=== PATIENT | male | born 1940 | race Two or more races ===

== ENCOUNTER → 2024-06-11 | Outpatient (CLI) | payer MEDICARE, MEDICAID, SELFPAY ==
[2024-06-11 09:52] LABS: Basophils % (Auto) 0 % (0-2.5); Eosinophils # (Auto) 0.1 Thou/mm3 (0.0-0.5); Eosinophils % (Auto) 2 % (0-10); Hematocrit 41.3 % (41.0-53.0); Hemoglobin 13.7 g/dL (13.5-16.0); Immature Granulocytes % (Auto) 0 % (0-0); Immature Granulocytes Auto 0.02 Thou/mm3 (0.00-0.00); Lymphocytes # (Auto) 1.4 Thou/mm3 (1.0-4.8); Lymphocytes % (Auto) 24 % (10-50); Mean Corpuscular HGB Conc 33.2 g/dl (31.0-37.0); Mean Corpuscular Hemoglobin 29.3 pg (25.0-35.0); Mean Corpuscular Volume 88 fL (80-100); Monocytes # (Auto) 0.7 Thou/mm3 (0.0-0.8); Monocytes % (Auto) 11 % (0-12); Neutrophils # (Auto) 3.7 Thou/mm3 (1.8-7.7); Neutrophils % (Auto) 62 % (37-80); Nucleated Red Blood Cell % 0 /100 WBC (0); Platelet Count 215 Thou/mm3 (140-440); Red Blood Count 4.68 Miln/mm3 (4.50-5.90)
[2024-06-11 10:27] LABS: Alanine Aminotransferase 12 U/L (10-49); Albumin, Serum 4.2 gm/dL (3.4-4.8); Albumin/Globulin Ratio 1.7 (1.2-2.2); Alkaline Phosphatase 89 U/L (46-116); Anion Gap 6 (7-16); Aspartate Amino Transferase 15 U/L (0-34); BUN/Creatinine Ratio 13 Ratio (12-20); Blood Urea Nitrogen 10 mg/dL (9-23); Calcium 9.5 mg/dL (8.3-10.6); Calcium (Corrected) 9.5 mg/dL (8.5-10.1); Carbon Dioxide 28.4 mMol/L (20.0-31.0); Chloride 103 mMol/L (98-107); Creatinine (Component) 0.8 mg/dL (0.6-1.3); Globulin 2.5 gm/dL (2.3-3.5); Glucose 101 mg/dL (74-106); Osmolality,Calculated 272 (275-295); Potassium 4.2 mMol/L (3.4-5.1); Sodium 137 mMol/L (136-145); Total Protein 6.7 gm/dL (5.7-8.2); eGFR > 60 See Note
== END | disposition home or self-care (01) ==
PROVIDERS: PCP Family Medicine; Referring Provider Radiology Therapeutic Radiology; Visit Provider Radiology Therapeutic Radiology
DX: C61 Malignant neoplasm of prostate (principal); R59.0 Localized enlarged lymph nodes
CPT/HCPCS: 36415; 80053; 84153; 85025

== ENCOUNTER 2024-06-13 09:21 | Outpatient (RCR) | payer MEDICARE, MEDICAID, SELFPAY ==
--- NOTE | 2024-06-13 10:17 | CTCFLWUP_ITS ---
[facility] [address] [place], [place] [address] FOLLOW-UP NOTE Date: 06/13/2024 MR#: [id number] Name: ELSA ADAMS : 1940 Dx: C61 Malignant neoplasm of prostate Identification. History of prostate CA treated with radiation therapy 7200 cGy completed 10/02/2012. PSA noted to be rising slowly this year, most recent 06/11/2024 6.1. This is minimally changed from 6.4 on 02/06/2024, and 5.7 on 11/02/2023. Bone scan mild uptake in TL spine and knees. CT of the neck 02/19/2024 somewhat larger 2.2 cm right parotid region compared to 1.8 centimeter 023. Had previous biopsy the left parotid gland 11/30/2022 generally considered benign tumor oncocytom a. Most recent CT Abdomen pelvis 02/19/2004 showed masslike area sigmoid colon. States that he has been passing some bloody stools while wiping during bowel movements. 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 Placed on Plavix aspiri n and intact hypertensive. As I see patient today he appears comfortable, with slight weakness on the left side noted neurologic ally. Able to communicate adequately. States his bowel symptoms are similar with occasional blood-t inged stools but does not want to go out of this area for colonoscopy.. For insurance reasons he has to. Assessment #1 history of prostate CA treated with radiation September 2012. Borderline elevated PSA in the 6 range on recent tests. Patient opts for continued observation. #2. Recent acute CVA being followed by neurologist on antiplatelet and hypertensives. #3. Intermittent bleeding lower GI tract. Declines colonoscopy done out of the area which is requir ed by his insurance. Opted for continued observation as well. #4. 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 Gave patient appointment for 6 months. Can return earlier if needed for any worsening of sympto ms. Electronically signed by: Toney Woodson M.D. 06/13/2024 10:15 AM
== END 2024-06-29 23:59 | disposition home or self-care (01) ==
LOC: SCTC 09:21
PROVIDERS: PCP Family Medicine; Referring Provider Family Medicine; Visit Provider Radiology Therapeutic Radiology
DX: Z08 Encounter for follow-up examination after completed treatment for malignant neoplasm (principal); Z85.46 Personal history of malignant neoplasm of prostate; R97.21 Rising PSA following treatment for malignant neoplasm of prostate; K92.1 Melena; Z86.018 Personal history of other benign neoplasm; Z92.3 Personal history of irradiation
CPT/HCPCS: 99213; G0463

== ENCOUNTER 2024-08-16 20:42 | Inpatient (IN) | payer MEDICARE, MEDICAID, SELFPAY ==
[2024-08-16 20:43] VITALS: BMI 31.9
[2024-08-16 21:00] VITALS: PULSE 76
[2024-08-16 21:01] VITALS: BP 158/79; PULSE 83; RESP 20; TEMP 36.7; O2SAT 96
--- NOTE | 2024-08-16 21:01 | XR_ITS ---
Examination: CT brain head without contrast. 2-D sagittal coronal reconstructions Date and time of exam:August 16, 2024 2140 hrs. Indications: Stroke alert, onset focal neurologic deficit, left arm numbness beginning today CTDI: vol (mGy):55.8 DLP: (mGycm):1146 Technique: Multiple CT axial sections of the brain have been obtained, 5 mm slice thickness. Contrast has not been administered. 2-D sagittal, coronal reconstructions have been obtained Low dose protocols were performed. One or more of the following dose reduction techniques were used; automated exposure control, adjustment of the mA and/or KV according to patient size, use of iterative reconstruction technique. Findings: No significant ventricular enlargement. Intra-axial or extra-axial hemorrhage density is not seen. No mass effect or midline shift Basal cisterns are not remarkable. Fourth ventricle is midline. Cranial vault intact. Impression: Negative for acute hemorrhage, mass effect or midline shift
--- NOTE | 2024-08-16 21:01 | XR_ITS ---
Examination: CTA carotids with intravenous contrast CTA brain, head with intravenous contrast. 2-D sagittal, coronal reconstructions. 3-D reconstructions. Exam date and time: August 16, 2024 2144 hrs. Indications: Stroke alert, onset focal neurologic deficit including left arm numbness today CTDI: vol (mGy) 11.3 DLP: (mGycm) 432 Technique: Multiple CTA axial brain, head carotid images post intravenous contrast injection 75 cc, Isovue-370. 2-D sagittal, coronal reconstructions. 3-D reconstructions, 3-D post processing including vascular maximum intensity projection images. Low dose protocols were performed. One or more of the following dose reduction techniques were used; automated exposure control, adjustment of the mA and/or KV according to patient size, use of iterative reconstruction technique. Findings: No significant common carotid carotid bifurcation or internal carotid artery stenoses Dominant left vertebral artery with no critical stenoses Moderate calcification intracranial vertebral arteries Basilar artery posterior cerebral arteries fill Moderate calcification juxtasellar internal carotid arteries No cerebral large vessel arterial occlusions Impression: No significant neck arterial stenoses No cerebral large vessel arterial occlusions
--- NOTE | 2024-08-16 21:01 | PD.EDRME ---
Rapid Medical Screening Exam [facility] Arrival date/time: 08/16/24 20:42 84-year-old male with a history of CVA, hyperlipidemia, hypertension presents to the emergency room with a chief complaint of left-sided arm numbness, slurred speech, left facial numbness x 1 hour. Patient has a history of a stroke 3 months ago and is on blood thinners. I have greeted and performed a focused initial assessment of this patient. A comprehensive ED assessment and evaluation of the patient, analysis of all test results, and completion of the medical decision making process will be conducted by additional ED providers. Chief Complaint: Neuro Symptoms/Deficit Vital signs reviewed by provider: Yes
--- NOTE | 2024-08-16 21:04 | PC.NURSE ---
stroke consult Case # [id number]
--- NOTE | 2024-08-16 21:06 | PD.EDNEURO ---
Neuro Symptoms Deficit-RME/HPI General Chief Complaint: Neuro Symptoms/Deficit Stated Complaint: LEFT ARM NUMB Time Seen by Provider: 08/16/24 21:07 Arrival date/time: 08/16/24 20:42 RME / HPI RME / HPI Narrative: 08/16/24 20:42 84-year-old male with a history of CVA, hyperlipidemia, hypertension presents to the emergency room with a chief complaint of left-sided arm numbness, slurred speech, left facial numbness x 1 hour. Patient has a history of a stroke 3 months ago and is on blood thinners. I have greeted and performed a focused initial assessment of this patient. A comprehensive ED assessment and evaluation of the patient, analysis of all test results, and completion of the medical decision making process will be conducted by additional ED providers. ----- Dr. Villalobos?s Main ED Evaluation: 84yo male with pmhx CVA, HTN, HLD BIB his daughter presents to the ED for a chief complaint of neurological symptoms. Patient states he was sitting down watching TV when he started having LUE numbness, left facial droop, and slurred speech. Patient's daughter states the patient had similar symptoms 3 months ago when he had his last stroke, so she brought him in for evaluation. Denies any dizziness, lightheadedness, headache or any other associated symptoms. No known allergies. Patient is on Plavix. Related Data Home Medications ?Medication ?Instructions ?Recorded ?Confirmed carvedilol 6.25 mg tablet (Coreg) 6.25 mg PO BID ##0 12/01/10 08/17/24 amlodipine 10 mg tablet 10 mg PO QDAY 07/21/21 08/17/24 famotidine 20 mg tablet 20 mg PO BID PRN Heartburn 07/21/21 08/17/24 losartan 25 mg tablet 25 mg PO DAILY 08/17/24 08/17/24 Previous Rx's ?Medication ?Instructions ?Recorded atorvastatin 80 mg tablet 80 mg PO QPM #30 tabs 05/14/24 clopidogrel 75 mg tablet 75 mg PO QDAY 30 days #30 tabs 05/14/24 Allergies Allergy/AdvReac Type Severity Reaction Status Date / Time No Known Allergies Allergy Verified 05/12/24 05:17 Review of Systems Review of Systems Systems Reviewed: All systems reviewed, normal except as documented Narrative Review of Systems: Gen: No fever, no chills, no weight loss EYES: No discharge, no visual changes, no pain HEENT: No ear pain, no congestion, no sore throat PULM: No shortness of breath, no cough, no congestion CV: No chest pain, no dyspnea on exertion, no palpitations GI: No nausea, no vomiting, no diarrhea, no pain, no constipation : No frequency, no urgency, no dysuria Musc/skel: No joint pain, no back pain Skin: No rash. Warm and dry. Psyc: No hallucinations, no depression Heme/Lymph: No easy bleeding or bruising tendencies Neuro: No weakness, no headache, + LUE numbness, + left facial droop, + slurred speech Past Medical History Past Medical History NEUROLOGIC: Negative Neurological Disorders CARDIAC: Positive Cardiac Disorders, Hypercholesterolemia and Hypertension; Negative Congestive Heart Failure RESPIRATORY: Negative Chronic Obstructive Pulmonary Disease (COPD) or Asthma GASTROINTESTINAL: Positive Gastrointestinal Disorders, Colorectal Cancer (Pt states tumor in colon found 2 weeks ago) and Gastroesophageal Reflux Disease GENITOURINARY: Positive Prostate Cancer; Negative Genitourinary Disorders or Renal Disease REPRODUCTIVE: Positive Testicular Cancer MUSCULOSKELETAL: Positive Musculoskeletal Disorders, Arthritis and Osteoporosis ENT: Positive Cataracts ENDOCRINE: Negative Endocrine Disorders, Diabetes Mellitus Type 1 or Diabetes Mellitus Type 2 HEMATOLOGIC: Negative Blood Disorders or Sickle Cell Disease OTHER HISTORY: Positive Hospitalization, Falls, Radiation Therapy, Chicken Pox, Cancer, Colorectal Cancer (Pt states tumor in colon found 2 weeks ago), Prostate Cancer and Testicular Cancer; Negative Autoimmune Disease, Down Syndrome, Developmental Delay, Shingles, Blood Transfusions or Anesthesia Reactions Family History FAMILY HISTORY: Negative Family Cardiac Disorders Surgical History SURGICAL: Positive Abdominal Surgery; Negative Cardiac Surgery, Endocrine Surgery, Joint Replacement, Neurologic Surgery or Vasectomy Social History SMOKING STATUS: Never smoker ED Exam Narrative Physical exam: GENERAL APPEARANCE: AxOx4, generally well-appearing, no acute distress. HEENT: NC, AT. MMM. EOMI, clear conjunctiva, oropharynx clear. NECK: Supple without lymphadenopathy. No stiffness or restricted ROM. HEART: Normal rate and regular rhythm, normal S1/S1, no m/r/g LUNGS: CTAB, moving air well. No crackles or wheezes are heard. ABDOMEN: Soft, nontender, nondistended with good bowel sounds heard. BACK: No midline C/T/L spine pain or deformity, No CVAT, no obvious deformity. EXTREMITIES: Without cyanosis, clubbing or edema. MUSCULOSKELETAL: FROM of all major joints, no chest tenderness NEUROLOGICAL: Grossly nonfocal. 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 Observed to ambulate with normal gait. Skin: Warm and dry without any rash. Course Course Course Narrative: 2100: Stroke alert initiated. Quality Measures Suspected type of Stroke: TIA Last known well (date): 08/16/24 Last known well (time): 20:00 Tenecteplase given: Reason(s) TPA not given: Acute bleeding diathesis (recent GI bleeding and is being worked up as an outpatient for colon CA per teleneurology) not given stroke Orders Category Date Time Status Admit to Inpatient Status Routine Admission 08/16/24 23:15 Active Patient Condition Routine Admission 08/16/24 23:14 Ordered Aspiration precautions NOW Care 08/16/24 23:15 Active Bedside Blood Glucose NOW Care 08/16/24 21:01 Completed Support Staff NOW Care 08/16/24 21:01 Completed Continuous Pulse Oximetry NOW Care 08/16/24 21:01 Completed EKG (ED ONLY) *Do not use* NOW Care 08/16/24 21:01 Completed Insert IV NOW Care 08/16/24 21:01 Completed NIH Stroke Scale now Care 08/16/24 21:01 Active NPO NOW Care 08/16/24 21:01 Active NPO NOW Care 08/16/24 23:15 Active Neuro Check Q4H START 00 Care 08/16/24 23:15 Completed Notify provider NEEDED Care 08/16/24 23:14 Active Nurse Swallow Screen x1 Care 08/16/24 21:01 Active Seizure precautions NEEDED Care 08/16/24 23:15 Active Consult to Neurology / Tele-Neurology Routine Cons 08/16/24 21:01 Active Diet NPO (NOW) Diet 08/16/24 23:[address] angio stroke protocol Stat Exams 08/16/24 21:[address] stroke protocol Stat Exams 08/16/24 21:01 Completed EKG (ED Only) Stat Exams 08/16/24 21:01 Ordered CBC Stat Lab 08/16/24 21:07 Completed Comprehensive Metabolic Panel Stat Lab 08/16/24 21:07 Completed Magnesium Stat Lab 08/16/24 21:07 Completed Partial Thromboplastin Time Stat Lab 08/16/24 21:07 Completed Prothrombin Time with INR Stat Lab 08/16/24 21:07 Completed Troponin I Stat Lab 08/16/24 21:07 Completed Urinalysis Stat Lab 08/16/24 22:57 Completed Urine Culture Stat Lab 08/16/24 22:57 Received Albuterol/Ipratr Rt Shelly [Duoneb Rt Shelly] Med 08/16/24 23:14 Active 3 ml INH Q2HR PRN Code Status Routine Oth 08/16/24 23:14 Ordered Oxygen Delivery NOW RT 08/16/24 21:01 Active Vital Signs Vital signs: Vital Signs Pulse Rate 76 08/16/24 21:00 Pulse ox is 96% on room air, which is normal according to my interpretation. Neuro Symptoms / Deficit MDM Narrative MDM Narrative:: Scribe Attestation: 08/16/24 Aarti Pitts am scribing for and in the presence of Dr. Villalobos. Patient data External records reviewed:: [facility] previous records (Per chart review, patient was admitted here on 05/12/24 for stroke-like symptoms.) Clinical information provided by:: patient and family (patient's daughter) Social determinants that could affect healthcare access:: none Patient has the following chronic illnesses:: CVA, HTN, HLD How is presenting disease/condition affected by chronic disease/condition?: caused by Evaluation data The following diagnostics were reviewed and interpreted by me:: lab results, radiology exam(s) and EKG tracing(s) Lab and/or radiology exams considered but not ordered:: none Interpretation Summary: CBC is normal, PTT is normal, PT and INR are normal, Glucose is 148, troponin is normal, Magnesium is normal, according to my interpretation. EKG done at 2132, NSR, rate of 79, normal intervals, normal axis, no acute ST or T-wave changes, according to my interpretation. -------- [facility] Signed Patient: BRYANELSA Hanson Med. Record#: [id number] Birthdate: 1940 Age/Sex: 84 / M Location: [facility] Attending Dr: Ordering Physician: Sanjiv Moncada Date of Service: 08/16/24 Procedure(s): CT stroke protocol Accession Number(s): [id number] cc: Sanjiv Moncada; Sohail Velazquez MD~ Examination: CT brain head without contrast. 2-D sagittal coronal reconstructions Date and time of exam:August 16, 2024 2140 hrs. Indications: Stroke alert, onset focal neurologic deficit, left arm numbness beginning today CTDI: vol (mGy):55.8 DLP: (mGycm):1146 Technique: Multiple CT axial sections of the brain have been obtained, 5 mm slice thickness. Contrast has not been administered. 2-D sagittal, coronal reconstructions have been obtained Low dose protocols were performed. One or more of the following dose reduction techniques were used; automated exposure control, adjustment of the mA and/or KV according to patient size, use of iterative reconstruction technique. Findings: No significant ventricular enlargement. Intra-axial or extra-axial hemorrhage density is not seen. No mass effect or midline shift Basal cisterns are not remarkable. Fourth ventricle is midline. Cranial vault intact. Impression: Negative for acute hemorrhage, mass effect or midline shift Dictated By: Sohail Velazquez MD Signed By: <Electronically signed by Sohail Velazquez MD in OV> 08/16/242116 [facility] Signed Patient: ELSA ADAMS. Record#: [id number] Birthdate: 1940 Age/Sex: 84 / M Location: [facility] Attending Dr: Ordering Physician: Sanjiv Moncada Date of Service: 08/16/24 Procedure(s): CT angio stroke protocol Accession Number(s): [id number] cc: Sanjiv Moncada; Sohail Velazquez MD~ Examination: CTA carotids with intravenous contrast CTA brain, head with intravenous contrast. 2-D sagittal, coronal reconstructions. 3-D reconstructions. Exam date and time: August 16, 2024 2144 hrs. Indications: Stroke alert, onset focal neurologic deficit including left arm numbness today CTDI: vol (mGy) 11.3 DLP: (mGycm) 432 Technique: Multiple CTA axial brain, head carotid images post intravenous contrast injection 75 cc, Isovue-370. 2-D sagittal, coronal reconstructions. 3-D reconstructions, 3-D post processing including vascular maximum intensity projection images. Low dose protocols were performed. One or more of the following dose reduction techniques were used; automated exposure control, adjustment of the mA and/or KV according to patient size, use of iterative reconstruction technique. Findings: No significant common carotid carotid bifurcation or internal carotid artery stenoses Dominant left vertebral artery with no critical stenoses Moderate calcification intracranial vertebral arteries Basilar artery posterior cerebral arteries fill Moderate calcification juxtasellar internal carotid arteries No cerebral large vessel arterial occlusions Impression: No significant neck arterial stenoses No cerebral large vessel arterial occlusions Dictated By: Sohail Velazquez MD Signed By: <Electronically signed by Sohail Velazquez MD in OV> 08/16/24 7979 Medications / Prescriptions Medications or Prescriptions considered but not ordered:: none Medication administrations:: Medication Administration History Acetaminophen (Acetaminophen 325 Mg Tablet) 650 mg PO Q6H PRN PRN Reason: Fever >100.3 or pain Stop: 09/15/24 23:15 Hydrocodone Bitart/Acetaminophen (Hydrocodone/Apap 5/325 Tablet) 1 tab PO Q4HR PRN PRN Reason: PAIN SCALE 4-10(Mod-Sev Stop: 08/21/24 23:15 Albuterol/Ipratropium (Albuterol/Ipratropium (Duoneb) Rt Shelly 3 Ml Nebu) 3 ml INH Q2HR PRN PRN Reason: SHORTNESS OF BREATH OR WHEEZE Stop: 09/15/24 23:13 Atorvastatin Calcium (Atorvastatin Calcium 20 Mg Tablet) 80 mg PO HS RAGINI Stop: 09/16/24 20:59 Last Admin: 08/17/24 20:15 Dose: 80 mg Documented By: GILBERT Clopidogrel Bisulfate (Clopidogrel Bisulfate 75 Mg Tablet) 75 mg PO QDAY RAGINI Stop: 09/16/24 08:59 Last Admin: 08/17/24 09:55 Dose: 75 mg Documented By: JOE Famotidine (Famotidine Inj 10 Mg/Ml Vial 2 Ml) 20 mg IVP Q12HR RAGINI Stop: 09/16/24 08:59 Last Admin: 08/17/24 20:15 Dose: 20 mg Documented By: Admin: 08/17/24 09:55 Dose: 20 mg Documented By: JOE Labetalol HCl (Labetalol Inj 5 Mg/Ml Vial 20 Ml) 10 mg IVP Q10MIN PRN PRN Reason: SBP > 220 Stop: 09/15/24 23:29 Ondansetron HCl (Ondansetron Inj 2 Mg/Ml Inj 2 Ml) 4 mg IV Q6H PRN; Protocol PRN Reason: NAUSEA OR VOMITING Stop: 09/15/24 23:15 Sennosides (Senna Tablet) 1 tab PO QDAY RAGINI; Protocol Stop: 09/16/24 08:59 Last Admin: 08/17/24 09:55 Dose: 1 tab Documented By: JRR Discontinued Medications Polyethylene Glycol/Electrolytes (Na Kennedy/Nahco3/Wolf/Peg (Golytely) 4,000 Ml Btl) 4,000 ml PO X1 ONE Stop: 08/17/24 14:32 Last Admin: 08/17/24 15:34 Dose: 4,000 ml Documented By: JRR see above, if any Consultations Consultation(s) initiated? (list below): Yes Consultation #1 (Physician, Specialty, Details): Discussed case with [Dr. Willis] from [teleneurology] regarding [consultation]. Discussed patients ED course, exam findings, labs, and radiology results. States the patient is not a tPA candidate at this time due to having recent GI bleeding and being worked up as an outpatient for colon CA and recommends admitting the patient for a stroke work-up. Time: 21:52 Consultation #2 (Physician, Specialty, Details): Discussed case with [the resident physician, attending Dr. Magallon] from Hospitalist service regarding admission. Discussed patients ED course, exam findings, labs, and radiology results. The Hospitalist [agrees] to accept the patient for admission. Time: 22:11 Diagnosis Neuro Differential Diagnosis: other (CVA, atypical migraine, ICH, seizure) Most likely diagnosis given after review of the tests above:: see below Admission Indicated Admission indicated?: indicated Admission Request Was there a request for admission?: Yes Admission Attestation Admission request attestation: Discussed case with [] from Hospitalist service regarding admission. Discussed patients ED course, exam findings, labs, and radiology results. The Hospitalist [agrees,declines] to accept the patient for admission. Disposition Plan Disposition Plan: Admit Critical Care Time Critical Care Time Critical Care Time: Yes Total Critical Care Time (min.): 40 Attestation: The high probability of sudden, clinically significant deterioration in the patient?s condition required the highest level of my preparedness to intervene urgently. The services I provided to this patient were to treat and/or prevent clinically significant deterioration. Services included the following: chart data review, reviewing nursing notes and/or old charts, documentation time, risk management consultant collaboration regarding findings and treatment options, medication orders and management, direct patient care, vital sign assessments and ordering, interpreting and reviewing diagnostic studies and lab tests. Aggregate critical care time includes only time during which I was engaged in work directly related to the patient?s care, as described above, whether at bedside or elsewhere in the Emergency Department. It did not include time spent performing other reported procedures or the services of residents, students, nurses or physician assistants. Discharge Plan Plan Patient Disposition: Admit Acute Care w/in Hospital Problem List Clinical Impression: Acute CVA (cerebrovascular accident), Chronic GI bleeding
[2024-08-16 21:18] LABS: Basophils # (Auto) 0.1 Thou/mm3 (0.0-0.2); Basophils % (Auto) 1 % (0-2.5); Eosinophils # (Auto) 0.2 Thou/mm3 (0.0-0.5); Eosinophils % (Auto) 2 % (0-10); Hematocrit 40.5 % (41.0-53.0); Hemoglobin 13.6 g/dL (13.5-16.0); Immature Granulocytes % (Auto) 0 % (0-0); Immature Granulocytes Auto 0.02 Thou/mm3 (0.00-0.00); Lymphocytes # (Auto) 1.9 Thou/mm3 (1.0-4.8); Lymphocytes % (Auto) 23 % (10-50); Mean Corpuscular HGB Conc 33.6 g/dl (31.0-37.0); Mean Corpuscular Hemoglobin 29.4 pg (25.0-35.0); Mean Corpuscular Volume 88 fL (80-100); Monocytes # (Auto) 0.9 Thou/mm3 (0.0-0.8); Monocytes % (Auto) 10 % (0-12); Neutrophils # (Auto) 5.5 Thou/mm3 (1.8-7.7); Neutrophils % (Auto) 64 % (37-80); Nucleated Red Blood Cell % 0 /100 WBC (0); Platelet Count 206 Thou/mm3 (140-440); RDW Standard Deviation 42.9 fL (35.1-43.9); Red Blood Count 4.62 Miln/mm3 (4.50-5.90); White Blood Count 8.5 Thou/mm3 (3.8-10.6)
[2024-08-16 21:27] VITALS: RESP 98
[2024-08-16 21:30] VITALS: BP 144/64; PULSE 77; RESP 20; O2SAT 97
[2024-08-16 21:35] LABS: Partial Thromboplastin Time 25.6 Seconds (22.0-36.0); Prothrombin Time 11.3 Seconds (9.0-12.2)
[2024-08-16 21:39] LABS: Carbon Dioxide 26.2 mMol/L (20.0-31.0); Chloride 103 mMol/L (98-107); Potassium 3.7 mMol/L (3.4-5.1); Sodium 136 mMol/L (136-145)
[2024-08-16 21:40] LABS: Alanine Aminotransferase 9 U/L (10-49); Albumin, Serum 4.4 gm/dL (3.4-4.8); Albumin/Globulin Ratio 1.6 (1.2-2.2); Alkaline Phosphatase 103 U/L (46-116); Anion Gap 7 (7-16); Aspartate Amino Transferase 14 U/L (0-34); BUN/Creatinine Ratio 13 Ratio (12-20); Bilirubin,Total 0.6 mg/dL (0.3-1.2); Blood Urea Nitrogen 10 mg/dL (9-23); Calcium 9.3 mg/dL (8.3-10.6); Calcium (Corrected) 9.3 mg/dL (8.5-10.1); Creatinine (Component) 0.8 mg/dL (0.6-1.3); Estimated Creatinine Clearance 79.7 mL/min (>60); Globulin 2.8 gm/dL (2.3-3.5); Glucose 148 mg/dL (74-106); Osmolality,Calculated 273 (275-295); Total Protein 7.2 gm/dL (5.7-8.2); Troponin I < 0.020 ng/mL (0.0-0.045); eGFR > 60 See Note
[2024-08-16 21:41] VITALS: PULSE 76; RESP 25; RESP 97
--- NOTE | 2024-08-16 21:43 | PC.NURSE ---
Per teleneuro, pt not candidate for TNKase.
--- NOTE | 2024-08-16 22:05 | PD.TNEURO ---
Tele Neuro Consultation Consultation Date 08/16/24 Most Recent Vital Signs Last Vital Signs Temp 98.1 F 08/16/24 21:01 Pulse 76 08/16/24 21:41 Resp 25 H 08/16/24 21:41 BP 144/64 H 08/16/24 21:30 Pulse Ox 97 08/16/24 21:30 O2 Del Method Room Air 08/16/24 21:30 Laboratory-Coagulation Panel PT 11.3 Seconds (9.0-12.2) 08/16/24 21:07 INR 1.0 (0.9-1.3) 08/16/24 21:07 APTT 25.6 Seconds (22.0-36.0) 08/16/24 21:07 Consultation Narrative [facility] Tele[facility]urology Consult Services Patient Name:???Juan Manuel Eagle Date of :???1940 Identification Number:??? Date of Service:???08/16/2024 21:03:47 Diagnosis:?R20.2 - Paresthesia of skin Impression: ?84 yo M w/ PMHx of recent R parietal stroke in April 2024, who presents with L sided weakness, numbness, slurred speech, dizziness. NIHSS 5. He is not a candidate for thrombolytic due to recent GI bleeding and possible colon cancer for which he is undergoing outpatient workup. ? ?Recommend admission for further stroke rule out as below. Would continue home plavix for now given recent GI bleeding. Our recommendations are outlined below. Recommendations: ? Stroke/Telemetry Floor ? Neuro Checks ? Bedside Swallow Eval ? DVT Prophylaxis ? IV Fluids, Normal Saline ? Head of Bed 30 Degrees ? Euglycemia and Avoid Hyperthermia (PRN Acetaminophen) ? Antihypertensives PRN if Blood pressure is greater than 220/120 or there is a concern for End organ damage/contraindications for permissive HTN. If blood pressure is greater than 220/120 give labetalol PO or IV or Vasotec IV with a goal of 15% reduction in BP during the first 24 hours. ?continue plavix 75mg daily ?MRI Brain w/o contrast Sign Out: ? Discussed with Emergency Department Provider Advanced Imaging:CTA Head and Neck Completed. LVO:No Patient in not a candidate for BIN Metrics: Last Known Well: 08/16/2024 20:00:00 Dispatch Time: 08/16/2024 21:03:47 Arrival Time: 08/16/2024 20:42:00 Initial Response Time: 08/16/2024 21:11:18Symptoms: L arm numbness, dizziness, slurred speech, and facial droop. . Initial patient interaction: 08/16/2024 21:31:39 NIHSS Assessment Completed: 08/16/2024 21:43:02Patient is not a candidate for Thrombolytic. Thrombolytic Medical Decision: 08/16/2024 21:43:03Patient was not deemed candidate for Thrombolytic because of following reasons: Recent gastrointestinal or urinary tract hemorrhage (within previous 21 days) . GI malignancy . I personally Reviewed the CT Head and it Showed no acute hemorrhage Primary Provider Notified of Diagnostic Impression and Management Plan on: 08/16/2024 21:48:00 History of Present Illness:Patient is a 84 year old Male. Patient was brought by private transportation with symptoms of L arm numbness, dizziness, slurred speech, and facial droop. . Patient was LKW at 8pm and then started to experience L arm numbness, dizziness, slurred speech, and facial droop. He reports having these symptoms before in the setting of a minor stroke in April when he was found to have R parietal lobe strokes. He also reports he is being worked up for GI bleeding and a possible colon tumor, and his daughter reports this is an ongoing issue for him, not yet resolved or diagnosed. ? Past Medical History: ?Hypertension ?Stroke Other PMH:? recent GI bleeding Medications: No Anticoagulant use? Antiplatelet use:?Yes?plavix Reviewed EMR for current medications Allergies:? Reviewed Social History: Smoking: No Family History: There is no family history of premature cerebrovascular disease pertinent to this consultation ROS : 14 Points Review of Systems was performed and was negative except mentioned in HPI. Past Surgical History: There Is No Surgical History Contributory To Today?s Visit ? Examination: BP(75137),?Pulse(76), 1A: Level of Consciousness - Alert; keenly responsive?+ 0 1B: Ask Month and Age - Both Questions Right?+ 0 1C: Blink Eyes & Squeeze Hands - Performs Both Tasks?+ 0 2: Test Horizontal Extraocular Movements - Normal?+ 0 3: Test Visual Calvin - No Visual Loss?+ 0 4: Test Facial Palsy (Use Grimace if Obtunded) - Minor paralysis (flat nasolabial fold, smile asymmetry)?+ 1 5A: Test Left Arm Motor Drift - Drift, but doesn't hit bed?+ 1 5B: Test Right Arm Motor Drift - No Drift for 10 Seconds?+ 0 6A: Test Left Leg Motor Drift - No Drift for 5 Seconds?+ 0 6B: Test Right Leg Motor Drift - No Drift for 5 Seconds?+ 0 7: Test Limb Ataxia (FNF/Heel-Zayas) - Ataxia in 1 Limb?+ 1 8: Test Sensation - Mild-Moderate Loss: Less Sharp/More Dull?+ 1 9: Test Language/Aphasia - Normal; No aphasia?+ 0 10: Test Dysarthria - Mild-Moderate Dysarthria: Slurring but can be understood?+ 1 11: Test Extinction/Inattention - No abnormality?+ 0 NIHSS Score:?5 Pre-Morbid Modified [place] Scale:1 Points = No significant disability despite symptoms; able to carry out all usual duties and activities Spoke with :?Dr. Villalobos This consult was conducted in real time using interactive audio and video technology. Patient was informed of the technology being used for this visit and agreed to proceed. Patient located in hospital and provider located at home/office setting. Patient is being evaluated for possible acute neurologic impairment and high probability of imminent or life-threatening deterioration. I spent total of 35 minutes providing care to this patient, including time for face to face visit via telemedicine, review of medical records, imaging studies and discussion of findings with providers, the patient and/or family. Dr Jovon Willis [facility] For Inpatient follow-up with [facility] physician please call [facility] at . As we are not an outpatient service for any post hospital discharge needs please contact the hospital for assistance. If you have any questions for the [facility] physicians or need to reconsult for clinical or diagnostic changes please contact us via [facility] at .
[2024-08-16 23:09] LABS: Collection Type, Urine Clean Catch; Squamous Epithelial Cell,Urine 0 /hpf (0-5)
--- NOTE | 2024-08-16 23:14 | PD.RESHP ---
Documentation for date of: 08/16/24 HPI History of Present Illness Chief complaint: Left face and arm tingling History of present illness: HPI: Patient is an 84-year-old male with past medical history significant for essential hypertension, hyperlipidemia, chronic stroke, history of prostate cancer s/p radiation September 2012 in remission and sigmoid colon mass for investigation presenting today with a chief complaint of left face tingling and left arm tingling. Patient stated that around 8 PM he started to feel left facial warmth and tingling along with left arm tingling. He recently had a stroke last month and was concerned he might be having a new one so he called the ambulance. Patient denies any weakness, headache, dizziness, vomiting, visual changes, anosmia or ageusia and loss of consciousness. Since his last stroke patient says whenever he closes his eyes he feels dizzy. Upon arrival teleneurology was consulted who assessed patient as not a candidate for thrombolytic due to recent GI bleed and possible colon cancer. They recommended inpatient admission, MR stroke protocol, continue Plavix 75 Mg p.o. daily and permissive hypertension for first 24 hours. Of note patient had a recent admission from 05/12/2024 to 05/14/2024 for acute right parietal lobe infarct. Patient also had a history of prostate cancer s/p radiation September 2012 and follows up with radiation oncologist Dr. Woodson. Also for the past couple months patient has had celia NC bleeding and findings of a sigmoid mass on CT. Currently patient is awaiting outpatient GI appointment for further investigation. ED course: BP 158/79, pulse 76, RR 20, temp 98.1 F, SpO2 96% on room air. Labs significant for Hb 13.6, HCT 14.5, BUN 10, CR 0.8. Head CT negative for acute hemorrhage, mass effect or midline shift. Head/neck CTA negative for significant neck arterial stenosis and cerebral large vessel arterial occlusions. Patient will be admitted for workup and management of stroke rule out. Review of Systems Review of Systems Narrative Review of Systems: GENERAL: Denies fever/chills or diaphoresis. HEENT: Denies headaches or visual changes. Denies discharge. Neuro: As above CARDIO: Denies chest pain or palpitations. PULM: Denies SOB, couging or wheezing. GI: Denies abdominal pain, N/V/C/D. Reports having BMs. URO: Denies buring/itching/pain/urinary changes. MSK/EXT/SKIN: Denies joint/skeletal/muscle pain, issues/changes in upper or lower extremities, itchiness, or superficial pain. PSYCH: Cooperative, pleasant mood & affect. The rest of the review of systems is otherwise negative. Past Medical History Past Medical History Comments PMH COMMENT: Past medical history: ?Essential hypertension ? Hyperlipidemia ? Chronic stroke ? History of prostate cancer s/p radiation September 2012 in remission ? Sigmoid colon mass for investigation Medication list: ? Amlodipine 10 Mg p.o. daily ? Atorvastatin 80 Mg p.o. every afternoon ? Carvedilol 6.25 Mg p.o. twice daily ? Plavix 75 Mg p.o. daily ? Famotidine 20 Mg p.o. twice daily ? Losartan 25 Mg p.o. daily Past surgical history: ? Cholecystectomy 2013 ? 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 Education Level: Attended elementary school up to second grade Marital Status: . 2 daughters Tobacco use: Quit smoking 20 years ago. Previously approximately 71-ejuk-utlo history ETHO use: Quit alcohol 20 years ago. Previously drank about 4 beers per week. Illicit drug use: Denies Social History Note: Patient lives with daughter and ambulates with a walker at baseline. Family History: 2 brothers from [place] in the 70s Exam Vital Signs Temp Pulse Resp BP Pulse Ox O2 Del Method 98.1 F 76 25 H 144/64 H 97 Room Air 08/16/24 21:01 08/16/24 21:41 08/16/24 21:41 08/16/24 21:30 08/16/24 21:30 08/16/24 21:30 Narrative Exam Constitutional Alert, oriented x 3 and comfortable. Elderly male HEENT Vision grossly intact. Patent nares. Trachea midline Respiratory Chest normal on inspection and clear auscultation bilaterally Cardiovascular S1 and S2 audible, RRR. No murmurs carotid bruit. No gross JVD. Abdominal Soft and non tender to palpation in all quadrants. BS + Genitourinary No bladder tenderness, no flank pain. Normal to palpation Musculoskeletal Extremities tone within normal limits. No LE edema. Neurological CN II - XII grossly intact. Extremity motor and sensation grossly intact. Mild dysarthria, Romberg's positive, unsteady gait, NIHSS 3 [1C +1, 4+1, 10+1] Skin Warm, dry and intact. No apparent lesions. Psychiatric Patient has good affect, is cooperative Results: Labs 08/16/24 21:07 08/16/24 21:07 Labs: Short CBC 08/16/24 Range/Units 21:07 WBC 8.5 (3.8-10.6) Thou/mm3 Hgb 13.6 (13.5-16.0) g/dL Hct 40.5 L (41.0-53.0) % Plt Count 206 (140-440) Thou/mm3 BMP 08/16/24 21:07 Sodium 136 Potassium 3.7 Chloride 103 Carbon Dioxide 26.2 BUN 10 Creatinine 0.8 Glucose 148 H Calcium 9.3 Cardiac Enzymes 08/16/24 Range/Units 21:07 Troponin I < 0.020 (0.0-0.045) ng/mL Liver Function 08/16/24 Range/Units 21:07 Total Bilirubin 0.6 (0.3-1.2) mg/dL AST 14 (0-34) U/L ALT 9 L (10-49) U/L Alkaline Phosphatase 103 (46-116) U/L Albumin 4.4 (3.4-4.8) gm/dL Quality Measures Quality Measures stroke Suspected type of Stroke: TIA Last known well (date): 08/16/24 Last known well (time): 20:00 Tenecteplase given: Reason(s) Tenecteplase not given: Acute bleeding diathesis (recent GI bleeding and is being worked up as an outpatient for colon CA per teleneurology) not given Rehab services: PT evaluation ordered VTE Prophylaxis: mechanical Antithrombotic by day 2:: ordered Statin ordered: >75 y/o moderate or high intensity dose Anticoagulation ordered for A-fib or flutter (current or hx): not indicated Advance care planning discussed with:: patient Medications Home Medications and Allergies Home Medications ?Medication ?Instructions ?Recorded ?Confirmed ?Type carvedilol 6.25 mg tablet (Coreg) 6.25 mg PO BID ##0 12/01/10 08/17/24 History amlodipine 10 mg tablet 10 mg PO QDAY 12/22/21 01/18/25 History famotidine 20 mg tablet 20 mg PO BID PRN Heartburn 07/21/21 08/17/24 History losartan 25 mg tablet 25 mg PO DAILY 08/17/24 08/17/24 History Allergies Allergy/AdvReac Type Severity Reaction Status Date / Time No Known Allergies Allergy Verified 05/12/24 05:17 Assessment & Plan Plan Patient is an 84-year-old male with past medical history significant for essential hypertension, hyperlipidemia, chronic stroke, history of prostate cancer s/p radiation September 2012 in remission and sigmoid colon mass for investigation presenting today with a chief complaint of left face tingling and left arm tingling. Patient will be admitted for workup and management of stroke rule out. 1. Stroke rule out 2. History of right parietal infarct 05/12/2024 Patient presented with left facial numbness and left arm tingling. On exam patient had mild slurred speech, left facial tingling and left arm tingling. Head CT negative for acute hemorrhage, mass effect or midline shift. Head/neck CTA negative for significant neck arterial stenosis and cerebral large vessel arterial occlusions. Plan: - Patient is started on stroke protocol - Neuro checks q 4H - Head of bed elevated to 30 degrees - Swallow eval and bedside swallow screen ordered - PT/OT referrals placed - Seizure precautions in place - Allow permissive HTN. Antihypertensives if BP >220/120, with a goal of reduction in BP during the first 24 hours - Labetalol 10 Mg IV Q 10 minutes as needed for SBP >220 - PRN Acetaminophen 650mg to avoid hyperthermia - HbA1C, Lipid panel, TSH - ECHO with bubble study not ordered as patient had negative bubble study on previous admission - Brain MRI without contrast ordered - Dr Diop consulted, pending in-house Neurology recommendations 3. Essential hypertension 4. Hyperlipidemia On admission BP 158/79. Home medication losartan 25 Mg p.o. daily, Coreg 6.25 Mg p.o. twice daily and amlodipine 10 Mg p.o. daily Home medication atorvastatin 80 Mg p.o. every afternoon Plan: ? Home medication on hold for now to allow permissive hypertension for first 24 hours. ? Resumed home medication atorvastatin 80 Mg p.o. every afternoon 5. History of prostate cancer s/p radiation September 2012 in remission 6. Sigmoid colon mass for investigation 7. History of NC bleed Patient says for the past few months he has bright red blood upon wiping every few days. Patient also had an abdomen/pelvis CT last year April which showed a sigmoid mass suspicious for neoplasm. Currently he is awaiting outpatient GI follow-up for investigation. Plan: ? GI, Dr. Orozco consulted. Appreciate recommendations. Health maintenance: Disposition: MR donnelly. Permissive HTN. GI consult Diet: NPO until swallow eval passed Lines: pIVs GI Prophylaxis: Famotidine 20 mg IV BID Thrombo Prophylaxis: SCDs Code status: FULL CODE Plan of care discussed with Attending Dr. Sherita Anaya MD PGY 1 Attending Provider Attestation/Addendum Face to face evaluation was performed by me. I have personally seen and examined the patient. I discussed the assessment and plan with the entire medicine team. I reviewed available medical records, imaging studies, laboratory results. I agree with the above subjective data, objective findings, assessment and plan except as corrected by me or noted below Left arm numbness history of recent ischemic stroke Essential hypertension Hyperlipidemia Patient was not given tPA due to concerns of lower GI bleed and risk with. Teleneurology was consulted, recommendations were to continue Plavix and admit for inpatient workup for acute stroke, MRI to be ordered. Permissive hypertension, ST/PT Apparently patient also had some left side of the face numbness and slurred speech which is not present at this time.
[2024-08-16 23:16] LABS: Bilirubin,Urine Negative (Negative); Blood,Urine Negative (Negative); Clarity,Urine Clear (Clear/Hazy); Color,Urine Colorless (Lt Yel-Yel); Glucose, Urine Negative (Negative); Ketones,Urine Negative (Negative); Leukocyte Esterase,Urine Negative (Negative); Nitrite,Urine Negative (Negative); PH,Urine 6.5 (5.0-7.0); Protein,Urine Negative (Neg - Trace); RBC,Urine 1 /hpf (0-3); Specific Gravity,Urine 1.031 (1.001-1.035); Urobilinogen,Urine Negative mg/dL (0.0-1.0); WBC,Urine < 1 /hpf (0-5)
[2024-08-17] VITALS (9 sets, daily range): BP systolic 128–159; BP diastolic 65–98; PULSE 64–84; RESP 12–97; TEMP 35.9–36.7; O2SAT 94–97; BMI 30.3
--- NOTE | 2024-08-17 | XR_ITS ---
Examinations: MRI Brain without intravenous contrast. MRA brain without intravenous contrast. MRA carotids without intravenous contrast 3-D vascular reconstructions Date and time of exam: August 17, 2024 0815 hrs. Indications: Stroke alert August 16, 2024 onset left facial and arm paresthesias, acute infarct right parietal lobe on brain MRI May 13, 2024 Technique: Multiple axial and sagittal images of the brain have been obtained MRA brain carotid images without contrast obtained, including 3-D postprocessing, vascular maximum intensity projection images Findings: Sellaturcica is not enlarged. The optic chiasm and infundibular stalk are not remarkable. Prepontine and interpeduncular cisterns are not enlarged. No localized enlargement of the medulla or jimmie. Fourth ventricle and cerebellar tonsils normal in position. Subacute hemorrhage is not seen. Fourth ventricle is midline. Mass in the cerebellopontine angle region is not evident. 7th and 8th nerve complexes exhibits symmetry. Globes are symmetrical with no retro-orbital mass. Increased white matter signal mild Diffusion-weighted images demonstrate foci restricted diffusion right parietal lobe, 10 mm with signal deficit on the ADC map Mass-effect upon the ventricular system is not identified. MRA carotid images degraded by patient motion. MRA brain images no large vessel occlusions Impression: 10 mm acute infarct right parietal lobe Telephone partly
[2024-08-17 05:31] LABS: Basophils % (Auto) 1 % (0-2.5); Eosinophils # (Auto) 0.1 Thou/mm3 (0.0-0.5); Eosinophils % (Auto) 2 % (0-10); Hematocrit 37.5 % (41.0-53.0); Hemoglobin 12.6 g/dL (13.5-16.0); Immature Granulocytes % (Auto) 0 % (0-0); Immature Granulocytes Auto 0.01 Thou/mm3 (0.00-0.00); Lymphocytes # (Auto) 1.4 Thou/mm3 (1.0-4.8); Lymphocytes % (Auto) 23 % (10-50); Mean Corpuscular HGB Conc 33.6 g/dl (31.0-37.0); Mean Corpuscular Hemoglobin 29.5 pg (25.0-35.0); Mean Corpuscular Volume 88 fL (80-100); Monocytes # (Auto) 0.7 Thou/mm3 (0.0-0.8); Monocytes % (Auto) 11 % (0-12); Neutrophils # (Auto) 3.8 Thou/mm3 (1.8-7.7); Neutrophils % (Auto) 64 % (37-80); Nucleated Red Blood Cell % 0 /100 WBC (0); Platelet Count 196 Thou/mm3 (140-440); RDW Standard Deviation 43.2 fL (35.1-43.9); Red Blood Count 4.27 Miln/mm3 (4.50-5.90)
[2024-08-17 06:33] LABS: Alanine Aminotransferase 7 U/L (10-49); Albumin, Serum 3.9 gm/dL (3.4-4.8); Albumin/Globulin Ratio 1.5 (1.2-2.2); Anion Gap 8 (7-16); Aspartate Amino Transferase < 8 U/L (0-34); BUN/Creatinine Ratio 13 Ratio (12-20); Bilirubin,Total 0.5 mg/dL (0.3-1.2); Blood Urea Nitrogen 8 mg/dL (9-23); Calcium 9.1 mg/dL (8.3-10.6); Calcium (Corrected) 9.2 mg/dL (8.5-10.1); Carbon Dioxide 26.2 mMol/L (20.0-31.0); Chloride 105 mMol/L (98-107); Cholesterol 84 mg/dL (132-200); Creatinine (Component) 0.6 mg/dL (0.6-1.3); Estimated Creatinine Clearance 103.7 mL/min (>60); Globulin 2.6 gm/dL (2.3-3.5); Glucose 114 mg/dL (74-106); HDL Cholesterol 32 mg/dL (40-60); Osmolality,Calculated 276 (275-295); Phosphorous 3.1 mg/dL (2.4-5.1); Potassium 3.8 mMol/L (3.4-5.1); Sodium 139 mMol/L (136-145); Total Protein 6.5 gm/dL (5.7-8.2); Triglycerides 66 mg/dL (30-150); eGFR > 60 See Note
[2024-08-17 06:34] LABS: Alkaline Phosphatase 88 U/L (46-116); Cardiac Risk Estimate 2.6 RATIO (4.0-6.7); LDL Cholesterol,Calculated 39 mg/dL (0-130); Thyroid Stimulating Hormone 1.58 uIU/mL (0.55-4.78)
[2024-08-17 06:49] LABS: Glucose Estimated Average 117 mg/dL (80-131); Hemoglobin A1C 5.7 % Hgb (4.8-6.0)
[2024-08-17] MEDS: SENNA TABLET 1 TAB PO (09:55)
[2024-08-17] MEDS: CLOPIDOGREL BISULFATE 75 MG TABLET PO (09:55)
[2024-08-17] MEDS: FAMOTIDINE INJ 10 MG/ML VIAL 2 ML 20 MG IVP ×2 (09:55→20:15)
--- NOTE | 2024-08-17 14:34 | ESPR_ITS ---
Documentation for date of: 08/17/24 Subjective Subjective Interval history: Patient seen and examined at bedside. Patient was admitted overnight for CVA workup. Patient today feels well however continues to have left upper extremity weakness. MRI results showed and confirmed a R parietal lobe stroke. Also the patient has been complaining of bright red blood from the rectum upon defecation. And there has been a concern for a rectal mass that has not been evaluated and worked up due to insurance issues in the outpatient setting. Gastroenterology was consulted. Family at bedside and results were discussed with them. Exam Vital Signs Temp Pulse Resp BP Pulse Ox O2 Del Method 97.6 F 84 20 145/68 H 94 L Room Air 08/17/24 12:00 08/17/24 12:00 08/17/24 12:00 08/17/24 12:00 08/17/24 12:08/17/24 12:00 Narrative Exam Constitutional Alert, oriented x 3 and comfortable. Elderly male HEENT Vision grossly intact. Patent nares. Trachea midline Respiratory Chest normal on inspection and clear auscultation bilaterally Cardiovascular S1 and S2 audible, RRR. No murmurs carotid bruit. No gross JVD. Abdominal Soft and non tender to palpation in all quadrants. BS + Genitourinary No bladder tenderness, no flank pain. Normal to palpation Musculoskeletal Extremities tone within normal limits. No LE edema. Neurological CN II - XII grossly intact. Left upper extremity weakness with handgrip strength of 3 out of 5. Skin Warm, dry and intact. No apparent lesions. Psychiatric Patient has good affect, is cooperative Objective Labs 08/18/24 05:12 08/18/24 05:12 Labs: Laboratory Results - last 24 hr 08/16/24 08/16/24 08/17/24 21:07 22:57 04:35 WBC 8.5 6.0 RBC 4.62 4.27 L Hgb 13.6 12.6 L Hct 40.5 L 37.5 L MCV 88 88 MCH 29.4 29.5 MCHC 33.6 33.6 RDW Std Deviation 42.9 43.2 Plt Count 206 196 Neut % (Auto) 64 64 Lymph % (Auto) 23 23 [place] % (Auto) 10 11 Eos % (Auto) 2 2 Baso % (Auto) 1 1 Neut # (Auto) 5.5 3.8 Lymph # (Auto) 1.9 1.4 [place] # (Auto) 0.9 H 0.7 Eos # (Auto) 0.2 0.1 Baso # (Auto) 0.1 0.0 Immature Gran # (Auto) 0.02 H 0.01 H Absolute Nucleated RBC 0.00 0.00 Immature Gran % 0 0 Nucleated RBC % 0 0 PT 11.3 INR 1.0 APTT 25.6 Sodium 136 139 Potassium 3.7 3.8 Chloride 103 105 Carbon Dioxide 26.2 26.2 Anion Gap 7 8 BUN 10 8 L Creatinine 0.8 0.6 Estim Creat Clear Calc 79.7 103.7 eGFR > 60 > 60 BUN/Creatinine Ratio 13 13 Glucose [address] Glu mg/dL 117 Hemoglobin A1c 5.7 Calculated Osmolality 273 L 276 Calcium 9.3 9.1 Corrected Calcium 9.3 9.2 Phosphorus 3.1 Magnesium 2.0 2.0 Total Bilirubin 0.6 0.5 AST 14 < 8 ALT 9 L 7 L Alkaline Phosphatase 103 88 Troponin I < 0.020 Total Protein 7.2 6.5 Albumin 4.4 3.9 D Globulin 2.8 2.6 Albumin/Globulin Ratio 1.6 1.5 Triglycerides 66 Cholesterol 84 L LDL Cholesterol, Calc 39 HDL Cholesterol 32 L Cholesterol/HDL Ratio 2.6 L TSH 1.58 Ur Collection Type Clean Catch Urine Color Colorless A Urine Clarity Clear Urine pH 6.5 Ur Specific [place] 1.031 Urine Protein Negative Urine Glucose (UA) Negative Urine Ketones Negative Urine Blood Negative Urine Nitrite Negative Urine Bilirubin Negative Urine Urobilinogen (Auto) Negative Ur Leukocyte Esterase Negative Urine RBC 1 Urine WBC < 1 Ur Squamous Epith Cells 0 Urine Bacteria None Quality Measures Quality Measures stroke Suspected type of Stroke: TIA Last known well (date): 08/16/24 Last known well (time): 20:00 Tenecteplase given: Reason(s) Tenecteplase not given: Acute bleeding diathesis (recent GI bleeding and is being worked up as an outpatient for colon CA per teleneurology) not given Rehab services: PT evaluation ordered VTE Prophylaxis: not ordered Antithrombotic by day 2:: not indicated (describe) Statin ordered: >75 y/o moderate or high intensity dose Anticoagulation ordered for A-fib or flutter (current or hx): ordered and not indicated Advance care planning discussed with:: patient Assessment & Plan Assessment Current Active Medications: Generic Name Dose Route Start Last Admin Trade Name Freq PRN Reason Stop Dose Admin Acetaminophen 650 mg 08/16/24 23:16 Acetaminophen 325 Mg Tablet PO 09/15/24 23:15 Q6H PRN Fever >100.3 or pain Hydrocodone Bitart/Acetaminophen 1 tab 08/16/24 23:16 Hydrocodone/Apap 5/325 Tablet PO 08/21/24 23:15 Q4HR PRN PAIN SCALE 4-10(Mod-Sev Albuterol/Ipratropium 3 ml 08/16/24 23:14 Albuterol/Ipratropium (Duoneb) Rt Shelly 3 Ml Nebu INH 09/15/24 23:13 Q2HR PRN SHORTNESS OF BREATH OR WHEEZE Atorvastatin Calcium 80 mg 08/17/24 21:00 Atorvastatin Calcium 20 Mg Tablet PO 09/16/24 20:59 HS RAGINI Clopidogrel Bisulfate 75 mg 08/17/24 09:00 08/17/24 09:55 Clopidogrel Bisulfate 75 Mg Tablet PO 09/16/24 08:59 75 mg QDAY RAGINI Administration Famotidine 20 mg 08/17/24 09:00 08/17/24 09:55 Famotidine Inj 10 Mg/Ml Vial 2 Ml IVP 09/16/24 08:59 20 mg Q12HR RAGINI Administration Labetalol HCl 10 mg 08/16/24 23:23 Labetalol Inj 5 Mg/Ml Vial 20 Ml IVP 09/15/24 23:29 Q10MIN PRN SBP > 220 Ondansetron HCl 4 mg 08/16/24 23:16 Ondansetron Inj 2 Mg/Ml Inj 2 Ml IV 09/15/24 23:15 Q6H PRN NAUSEA OR VOMITING Protocol Sennosides 1 tab 08/17/24 09:00 08/17/24 09:55 Senna Tablet PO 09/16/24 08:59 1 tab QDAY RAGINI Administration Protocol Plan Patient is an 84-year-old male with past medical history significant for essential hypertension, hyperlipidemia, chronic stroke, history of prostate cancer s/p radiation September 2012 in remission and sigmoid colon mass for investigation presenting today with a chief complaint of left face tingling and left arm tingling. Patient will be admitted for workup and management of stroke rule out. #Acute R parietal lobe infarct #History of right parietal infarct 05/12/2024 Patient presented with left facial numbness and left arm tingling. On exam patient had mild slurred speech, left facial tingling and left arm tingling. Head CT negative for acute hemorrhage, mass effect or midline shift. Head/neck CTA negative for significant neck arterial stenosis and cerebral large vessel arterial occlusions. MRI brain 10 mm acute infarct right parietal lobe Plan: - PT/OT referrals placed - Labetalol 10 Mg IV Q 10 minutes as needed for SBP >220 - PRN Acetaminophen 650mg to avoid hyperthermia - plavix 75mg PO qd - Dr Diop consulted, pending in-house Neurology recommendations #Lower GI bleed #Sigmoid colon mass for investigation #History of MI bleed #History of prostate cancer s/p radiation September 2012 in remission Patient says for the past few months he has bright red blood upon wiping every few days. Patient also had an abdomen/pelvis CT last year April which showed a sigmoid mass suspicious for neoplasm. Currently he is awaiting outpatient GI follow-up for investigation. H&H stable Plan: ? GI, Dr. Orozco consulted. Appreciate recommendations. -golytely started for colonoscopy prep #Essential hypertension #Hyperlipidemia On admission BP 158/79. Home medication losartan 25 Mg p.o. daily, Coreg 6.25 Mg p.o. twice daily and amlodipine 10 Mg p.o. daily Home medication atorvastatin 80 Mg p.o. every afternoon Plan: ? Resumed home medication atorvastatin 80 Mg p.o. every afternoon Health maintenance: Disposition: MR donnelly. Permissive HTN. GI consult Diet: regular Lines: pIVs GI Prophylaxis: Famotidine 20 mg IV BID Thrombo Prophylaxis: SCDs Code status: FULL CODE - Patient's care was discussed with my attending physician, Dr. Richard Vogel MD Internal Medicine PGY-3 Attending Provider Attestation/Addendum I attest that I was physically present for the evaluation, physical examination, lab and imaging review of the patient with the residents. I discussed the case with the residents and agree with the findings and plans of care as documented above. Patient was admitted overnight for evaluation and management of acute stroke. MRI brain showed acute infarct in left parietal lobe. Patient is stated he feels better compared to yesterday but continues to have left upper extremity weakness. Also complained of bright red blood with stool. Hemoglobin noted to be slowly downtrending. We will obtain GI consult. Patient currently on Plavix and statin. Allowing permissive hypertension with labetalol for SBP of more than 220. Plan to resume his antihypertensives tomorrow if continues to be stable. Meliza Ramos MD
[2024-08-17] MEDS: NA SU/NAHCO3/KC/PEG (Golytely) 4,000 ML BTL 4000 ML PO (15:34)
--- NOTE | 2024-08-17 16:02 | ESCONSULT_ITS ---
HPI Data of Consult Requesting Physician: Ricardo Magallon MD Primary Care Provider: Jamir Griffin MD Consult Narrative Reason for consult: Sigmoid colon mass on CT AP 02/19/2024 History of present illness: 84 years old male I been consulted for sigmoid colon mass diagnosed on imaging study on 02/19/2024 Last oncology note is of March 2024 where of the sigmoid colon mass was recognized although the visits were for prostate carcinoma status post radiation therapy in the past Patient was supposed to have a colonoscopy Patient does have a history of GI bleed in terms of bleeding per rectum And that was never accomplished This admission is for tingling of the left side of the face and left arm CT scan of the head is negative CTA head and neck is negative MRI/MRA of the brain shows 10 mm right parietal infarct Patient does have a history of essential hypertension hyperlipidemia CVA in the past and prostate carcinoma status post radiation therapy and in remission since 2012 cc:: cc: Ricardo Magallon MD Review of Systems Review of Systems Systems Reviewed: All systems reviewed, normal except as documented Past Medical History Surgical History OTHER SURGICAL HX: As in the history of present illness Meds Home Medications and Allergies Home Medications ?Medication ?Instructions ?Recorded ?Confirmed ?Type carvedilol 6.25 mg tablet (Coreg) 6.25 mg PO BID ##0 12/01/10 08/17/24 History amlodipine 10 mg tablet 10 mg PO QDAY 07/21/21 08/17/24 History famotidine 20 mg tablet 20 mg PO BID PRN Heartburn 07/21/21 08/17/24 History losartan 25 mg tablet 25 mg PO DAILY 08/17/24 08/17/24 History Allergies Allergy/AdvReac Type Severity Reaction Status Date / Time No Known Allergies Allergy Verified 05/12/24 05:17 Exam Vital Signs Temp Pulse Resp BP Pulse Ox O2 Del Method 97.6 F 84 20 145/68 H 94 L Room Air 08/17/24 12:00 08/17/24 12:00 08/17/24 12:00 08/17/24 12:00 08/17/24 12:00 08/17/24 12:00 Constitutional Comments: Chronically ill-appearing Routine Respiratory Exam Comments: Normal to auscultation Routine Abdominal Exam Comments: Soft nontender Results Labs 08/17/24 04:35 08/17/24 04:35 Labs: Short CBC 08/16/24 08/17/24 Range/Units 21:07 04:35 WBC 8.5 6.0 (3.8-10.6) Thou/mm3 Hgb 13.6 12.6 L (13.5-16.0) g/dL Hct 40.5 L 37.5 L (41.0-53.0) % Plt Count 206 196 (140-440) Thou/mm3 BMP 08/16/24 08/17/24 21:07 04:35 Sodium 136 139 Potassium 3.7 3.8 Chloride 103 105 Carbon Dioxide 26.2 26.2 BUN 10 8 L Creatinine 0.8 0.6 Glucose 148 H 114 H Calcium 9.3 9.1 Cardiac Enzymes 08/16/24 Range/Units 21:07 Troponin I < 0.020 (0.0-0.045) ng/mL Liver Function 08/16/24 08/17/24 Range/Units 21:07 04:35 Total Bilirubin 0.6 0.5 (0.3-1.2) mg/dL AST 14 < 8 (0-34) U/L ALT 9 L 7 L (10-49) U/L Alkaline Phosphatase 103 88 (46-116) U/L Albumin 4.4 3.9 D (3.4-4.8) gm/dL Urine 08/16/24 Range/Units 22:57 Urine Color Colorless A (Lt Yel-Yel) Urine Clarity Clear (Clear/Hazy) Urine pH 6.5 (5.0-7.0) Ur Specific [place] 1.031 (1.001-1.035) Urine Protein Negative (Neg - Trace) Urine Glucose (UA) Negative (Negative) Assessment and Plan Additional Assessment & Plan Additional Plan: # Sigmoid colon mass Case discussed with internal medicine team Clear liquid diet GoLytely prep Colonoscopy tentatively scheduled for tomorrow morning if the patient is clear CEA level Other medical problems include # Right parietal infarct 10 mm # Prostate carcinoma 2013 s/p radiation therapy # Hyperlipidemia # Essential hypertension Thank you very much for the opportunity to participate in the care of this patient
[2024-08-17] MEDS: ATORVASTATIN CALCIUM 20 MG TABLET 80 MG PO (20:15)
[2024-08-18] VITALS (10 sets, daily range): BP systolic 137–152; BP diastolic 65–83; PULSE 58–79; RESP 14–96; TEMP 36.3–36.9; O2SAT 95–96; BMI 33.1
[2024-08-18 05:45] LABS: Basophils % (Auto) 1 % (0-2.5); Eosinophils # (Auto) 0.2 Thou/mm3 (0.0-0.5); Eosinophils % (Auto) 3 % (0-10); Hematocrit 35.3 % (41.0-53.0); Hemoglobin 12.1 g/dL (13.5-16.0); Immature Granulocytes % (Auto) 0 % (0-0); Immature Granulocytes Auto 0.02 Thou/mm3 (0.00-0.00); Lymphocytes # (Auto) 1.7 Thou/mm3 (1.0-4.8); Lymphocytes % (Auto) 26 % (10-50); Mean Corpuscular HGB Conc 34.3 g/dl (31.0-37.0); Mean Corpuscular Volume 88 fL (80-100); Monocytes # (Auto) 0.7 Thou/mm3 (0.0-0.8); Monocytes % (Auto) 11 % (0-12); Neutrophils # (Auto) 3.9 Thou/mm3 (1.8-7.7); Neutrophils % (Auto) 59 % (37-80); Nucleated Red Blood Cell % 0 /100 WBC (0); Platelet Count 185 Thou/mm3 (140-440); RDW Standard Deviation 43.8 fL (35.1-43.9); Red Blood Count 4.03 Miln/mm3 (4.50-5.90); White Blood Count 6.5 Thou/mm3 (3.8-10.6)
[2024-08-18 06:22] LABS: Alanine Aminotransferase 9 U/L (10-49); Albumin, Serum 3.7 gm/dL (3.4-4.8); Albumin/Globulin Ratio 1.5 (1.2-2.2); Alkaline Phosphatase 82 U/L (46-116); Anion Gap 7 (7-16); Aspartate Amino Transferase 10 U/L (0-34); BUN/Creatinine Ratio 11 Ratio (12-20); Bilirubin,Total 0.6 mg/dL (0.3-1.2); Blood Urea Nitrogen 9 mg/dL (9-23); Calcium 9.1 mg/dL (8.3-10.6); Calcium (Corrected) 9.3 mg/dL (8.5-10.1); Carbon Dioxide 29.9 mMol/L (20.0-31.0); Chloride 104 mMol/L (98-107); Creatinine (Component) 0.8 mg/dL (0.6-1.3); Estimated Creatinine Clearance 81.2 mL/min (>60); Globulin 2.4 gm/dL (2.3-3.5); Glucose 91 mg/dL (74-106); Osmolality,Calculated 279 (275-295); Potassium 3.8 mMol/L (3.4-5.1); Sodium 141 mMol/L (136-145); Total Protein 6.1 gm/dL (5.7-8.2); eGFR > 60 See Note
[2024-08-18 08:16] LABS: Phosphorous 3.5 mg/dL (2.4-5.1)
[2024-08-18] MEDS: POTASSIUM CHLORIDE 20 mEq TABCR PO (08:23)
[2024-08-18] MEDS: LOSARTAN POTASSIUM 25 MG TABLET PO (08:23)
[2024-08-18] MEDS: SENNA TABLET 1 TAB PO (08:23)
[2024-08-18] MEDS: CLOPIDOGREL BISULFATE 75 MG TABLET PO (08:23)
[2024-08-18] MEDS: FAMOTIDINE INJ 10 MG/ML VIAL 2 ML 20 MG IVP ×2 (08:26→20:16)
--- NOTE | 2024-08-18 10:56 | PC.SS ---
This is 84-year-old, , single female who presented to the ED due to suffering from left arm numbness. Patient appeared alert and oriented to self, place and situation. Patient reported that he resides with his daughter, Danyell at home. Patient reported that he is independent with most ADLs, and uses a walker. Patient assigned his daughter, Danyell as his emergency contact. Patient's PCP is [facility]. When medically clear, patient would like to return home with home health for PT. Discharge plan: home with home health.
--- NOTE | 2024-08-18 11:56 | ESPR_ITS ---
Documentation for date of: 08/18/24 Subjective Subjective Interval history: Hemoglobin hematocrit 12.1 and 35.3 Patient was scheduled for a colonoscopy today but she is not clear Additional GoLytely 4 L Clear liquid diet to continue Colonoscopy rescheduled for tomorrow Exam Vital Signs Temp Pulse Resp BP Pulse Ox O2 Del Method 97.7 F 62 21 H 142/82 H 96 Room Air 08/18/24 08:00 08/18/24 08:23 08/18/24 08:00 08/18/24 08:23 08/18/24 08:00 08/18/24 08:00 Routine Respiratory Exam Comments: Normal to auscultation Routine Abdominal Exam Comments: Soft nontender Objective Labs 08/18/24 05:12 08/18/24 05:12 Labs: Laboratory Results - last 24 hr 08/18/24 05:12 WBC 6.5 RBC 4.03 L Hgb 12.1 L Hct 35.3 L MCV 88 MCH 30.0 MCHC 34.3 RDW Std Deviation 43.8 Plt Count 185 Neut % (Auto) 59 Lymph % (Auto) 26 [place] % (Auto) 11 Eos % (Auto) 3 Baso % (Auto) 1 Neut # (Auto) 3.9 Lymph # (Auto) 1.7 [place] # (Auto) 0.7 Eos # (Auto) 0.2 Baso # (Auto) 0.0 Immature Gran # (Auto) 0.02 H Absolute Nucleated RBC 0.00 Immature Gran % 0 Nucleated RBC % 0 Sodium 141 Potassium 3.8 Chloride 104 Carbon Dioxide 29.9 Anion Gap 7 BUN 9 Creatinine 0.8 Estim Creat Clear Calc 81.2 eGFR > 60 BUN/Creatinine Ratio 11 L Glucose 91 Calculated Osmolality 279 Calcium 9.1 Corrected Calcium 9.3 Phosphorus 3.5 Magnesium 2.0 Total Bilirubin 0.6 AST 10 ALT 9 L Alkaline Phosphatase 82 Total Protein 6.1 Albumin 3.7 Globulin 2.4 Albumin/Globulin Ratio 1.5 Impressions Impression: # Sigmoid colon mass Additional GoLytely Clear liquid diet Colonoscopy rescheduled for tomorrow Assessment & Plan A&P Narrative # Sigmoid colon mass Case discussed with internal medicine team Clear liquid diet GoLytely prep Colonoscopy tentatively scheduled for tomorrow morning if the patient is clear CEA level Other medical problems include # 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
--- NOTE | 2024-08-18 12:49 | ESPR_ITS ---
<Statement entered by Travon Millan MD - 08/18/24 16:17> Patient was seen and examined at the bedside this morning. Patient is currently awaiting on colonoscopy as she is not clear yet on GoLytely prep for GI bleed workup. Patient was admitted for stroke workup and was found to have confirmed Rt parietal lobe stroke on MRI brain which is possibly the third stroke. Will continue with aspirin Plavix and statin therapy. Awaiting on PT recommendations. Hemoglobin was stable. Urine cultures are pending. All labs and orders were reviewed. I saw and examined the patient, and I agree with current management stated by Dr Steve MD,PGY1. Plan of care was discussed with the attending physician and resident physician. Disclaimer: Despite multiple revisions, due to the dictation software being used, the document bellow may not be free of grammatical errors including phonetic/typographic errors. However, this does not deter from our commitment to providing health care in the patient's best interest in mind. Dr. Pawan MD, PGY 2 Documentation for date of: 08/18/24 Subjective Subjective Interval history: No overnight events. Patient examined at bedside. Improved motor function in the upper extremities, no drift noted. No lower extremity motor deficits noted. Patient is scheduled for colonoscopy with Dr. Orozco, but still not clear second GoLytely added. This morning celia blood noted in stool, FOBT ordered. FOBT positive. Patient is scheduled for colonoscopy probably tomorrow. Patient updated on plan and agreeable. 10 lbs weight loss noted over the last 2 months. Left facial droop noted on physical exam, which is new on this admission and not present with other CVAs. NIHSS score 2 Exam Vital Signs Temp Pulse Resp BP Pulse Ox O2 Del Method 97.6 F 73 22 H 139/68 H 96 Room Air 08/18/24 12:00 08/18/24 12:00 08/18/24 12:00 08/18/24 12:00 08/18/24 12:08/18/24 12:00 Narrative Exam General Appearance: Alert & Oriented X3, well-nourished male who is lying in bed in no acute distress HEENT: Skull symmetrical and atraumatic. Conjunctivae pink and moist. Pupils equal, round, reactive to light and accommodation (PERRL). External ear without lesion or discharge. Straight, nares patient, mucosa pink, no discharge. No thyroid nodule appreciated. No cervical lymphadenopathy. Cardio: Normal Rate and Rhythm with S1 and S2 heart sounds. Possible holoystolic murmur noted. . No bruits on carotid auscultation. No peripheral edema or cyanosis. Lungs: Symmetric with good expansion. Chest and back non-tender. Breath sounds vesicular without crackles, wheezing or rhonchi Abdomen: mild tenderness, Non-distended, Normal Reactive Bowel Sounds, hyperresonant on right lower and upper quadrant Neuro: Alert, cooperative, oriented to person, place, and time. Speech clear. CN grossly intact. Upper motor strength 4/5 and Lower motor strength 5/5. Sensation intact. Left facial drop noted near nasol-labial folds. Objective Labs 08/18/24 05:12 08/18/24 05:12 Labs: Laboratory Results - last 24 hr 08/18/24 05:12 WBC 6.5 RBC 4.03 L Hgb 12.1 L Hct 35.3 L MCV 88 MCH 30.0 MCHC 34.3 RDW Std Deviation 43.8 Plt Count 185 Neut % (Auto) 59 Lymph % (Auto) 26 [place] % (Auto) 11 Eos % (Auto) 3 Baso % (Auto) 1 Neut # (Auto) 3.9 Lymph # (Auto) 1.7 [place] # (Auto) 0.7 Eos # (Auto) 0.2 Baso # (Auto) 0.0 Immature Gran # (Auto) 0.02 H Absolute Nucleated RBC 0.00 Immature Gran % 0 Nucleated RBC % 0 Sodium 141 Potassium 3.8 Chloride 104 Carbon Dioxide 29.9 Anion Gap 7 BUN 9 Creatinine 0.8 Estim Creat Clear Calc 81.2 eGFR > 60 BUN/Creatinine Ratio 11 L Glucose 91 Calculated Osmolality 279 Calcium 9.1 Corrected Calcium 9.3 Phosphorus 3.5 Magnesium 2.0 Total Bilirubin 0.6 AST 10 ALT 9 L Alkaline Phosphatase 82 Total Protein 6.1 Albumin 3.7 Globulin 2.4 Albumin/Globulin Ratio 1.5 Quality Measures Quality Measures stroke Suspected type of Stroke: TIA Last known well (date): 08/16/24 Last known well (time): 20:00 Tenecteplase given: Reason(s) Tenecteplase not given: Acute bleeding diathesis (recent GI bleeding and is being worked up as an outpatient for colon CA per teleneurology) not given Rehab services: PT evaluation ordered VTE Prophylaxis: pharmaceutical Antithrombotic by day 2:: not indicated (describe) Statin ordered: <75 y/o high intensity dose Anticoagulation ordered for A-fib or flutter (current or hx): not indicated Advance care planning discussed with:: patient Assessment & Plan Assessment Current Active Medications: Generic Name Dose Route Start Last Admin Trade Name Freq PRN Reason Stop Dose Admin Acetaminophen 650 mg 08/16/24 23:16 Acetaminophen 325 Mg Tablet PO 09/15/24 23:15 Q6H PRN Fever >100.3 or pain Hydrocodone Bitart/Acetaminophen 1 tab 08/16/24 23:16 Hydrocodone/Apap 5/325 Tablet PO 08/21/24 23:15 Q4HR PRN PAIN SCALE 4-10(Mod-Sev Albuterol/Ipratropium 3 ml 08/16/24 23:14 Albuterol/Ipratropium (Duoneb) Rt Shelly 3 Ml Nebu INH 09/15/24 23:13 Q2HR PRN SHORTNESS OF BREATH OR WHEEZE Atorvastatin Calcium 40 mg 08/18/24 21:00 Atorvastatin Calcium 20 Mg Tablet PO 09/17/24 20:59 HS RAGINI Clopidogrel Bisulfate 75 mg 08/17/24 09:00 08/18/24 08:23 Clopidogrel Bisulfate 75 Mg Tablet PO 09/16/24 08:59 75 mg QDAY RAGINI Administration Famotidine 20 mg 08/17/24 09:00 08/18/24 08:26 Famotidine Inj 10 Mg/Ml Vial 2 Ml IVP 09/16/24 08:59 20 mg Q12HR RAGINI Administration Labetalol HCl 10 mg 08/16/24 23:23 Labetalol Inj 5 Mg/Ml Vial 20 Ml IVP 09/15/24 23:29 Q10MIN PRN SBP > 220 Losartan Potassium 25 mg 08/18/24 09:00 08/18/24 08:23 Losartan Potassium 25 Mg Tablet PO 09/17/24 08:59 25 mg QDAY RAGINI Administration Ondansetron HCl 4 mg 08/16/24 23:16 Ondansetron Inj 2 Mg/Ml Inj 2 Ml IV 09/15/24 23:15 Q6H PRN NAUSEA OR VOMITING Protocol Sennosides 1 tab 08/17/24 09:00 08/18/24 08:23 Senna Tablet PO 09/16/24 08:59 1 tab QDAY RAGINI Administration Protocol Plan Patient is an 84-year-old male with past medical history significant for essential hypertension, hyperlipidemia, chronic stroke, history of prostate cancer s/p radiation September 2012 in remission and sigmoid colon mass for investigation presenting today with a chief complaint of left face tingling and left arm tingling. Patient will be admitted for workup and management of stroke rule out. #Lower GI bleed #Sigmoid colon mass for investigation #History of NE bleed #History of prostate cancer s/p radiation September 2012 in remission Patient says for the past few months he has bright red blood upon wiping every few days. Patient also had an abdomen/pelvis CT last year April which showed a sigmoid mass suspicious for neoplasm. Currently he is awaiting outpatient GI follow-up for investigation. H&H stable Plan: ? GI, Dr. Orozco consulted. Appreciate recommendations. -golytely started for colonoscopy prep #Acute R parietal lobe infarct #History of right parietal infarct 05/12/2024 Patient presented with left facial numbness and left arm tingling. On exam patient had mild slurred speech, left facial tingling and left arm tingling. Today, improved as compared to admission NIHSS score of 2. Previous echo on file showed negative PFO and ASD (05/12/2024). This is patient's third stroke Head CT negative for acute hemorrhage, mass effect or midline shift. Head/neck CTA negative for significant neck arterial stenosis and cerebral large vessel arterial occlusions. MRI brain 10 mm acute infarct right parietal lobe Plan: - PT/OT referrals placed - PRN Acetaminophen 650mg to avoid hyperthermia - plavix 75mg PO qd - Labetalol 10 Mg IV Q 10 minutes as needed for SBP >220, restarted home medication, out of permissive HTN window - Dr Diop consulted, pending in-house Neurology recommendations #Essential hypertension #Hyperlipidemia On admission BP 158/79. Home medication losartan 25 Mg p.o. daily, Coreg 6.25 Mg p.o. twice daily and amlodipine 10 Mg p.o. daily Home medication atorvastatin 80 Mg p.o. every afternoon Plan: ? Resumed home medication atorvastatin 40 Mg p.o. every afternoon -Resumed Losartan 25 mg QDay -Resumed amlodipine 10 mg HS -Consider resuming Coreg 6.25 mg PO tomorrow -out of window for permissive for permissive HTN Health maintenance: Disposition: GI consult and colonoscopy Diet: regular Lines: pIVs GI Prophylaxis: Famotidine 20 mg IV BID Thrombo Prophylaxis: SCDs Code status: FULL CODE - The patient's plan was discussed with attending Dr. Ramos and senior residents Dr. Pawan Wilson MD PGY1 Internal Medicine Attending Provider Attestation/Addendum I attest that I was physically present for the evaluation, physical examination, lab and imaging review of the patient with the residents. I discussed the case with the residents and agree with the findings and plans of care as documented above. At bedside today, patient appears comfortable. He states that his weakness have improved significantly compared to yesterday. Neurology following. Saturating well on room air, tolerating diet. Patient has been taking his GoLytely, but not clear yet. Continues to have bright red blood on the stool. We will continue with GoLytely, colonoscopy scheduled for tomorrow with GI. Hemoglobin slowly downtrending but stable currently at 12.1. Meliza Ramos MD
--- NOTE | 2024-08-18 12:57 | PC.NURSE ---
Dr. Orozco notified of BM still cloudy and bloody, ordered another golytely.
[2024-08-18] MEDS: NA SU/NAHCO3/KC/PEG (Golytely) 4,000 ML BTL 4000 ML PO (13:00)
[2024-08-18] MEDS: ATORVASTATIN CALCIUM 20 MG TABLET 40 MG PO (20:15)
[2024-08-18] MEDS: amLODIPine BESYLATE 5 MG TABLET 10 MG PO (20:15)
--- NOTE | 2024-08-18 22:13 | PC.NURSE ---
REPORT GIVEN TO ERYN CARDOSO TO ASSUME CARE
--- NOTE | 2024-08-18 23:33 | VVPN_ITS ---
Telemedicine visit statement This visit was conducted with the use of interactive audio and video telecommunications system that permits real time communication between the patient and the provider. Patient's verbal consent for virtual visit was obtained on 08/18/24 at 2333. Documentation for date of: 08/18/24 Subjective Subjective Interval history: Patient is in telemetry. His left facial droop and left UE weakness are improving, able to ambulate without any assistance. No new symptoms reported. Tolerating oral diet well. Slept well overnight. Virtual exam Vital Signs Temp Pulse Resp BP Pulse Ox O2 Del Method 98.4 F 65 19 143/65 H 96 Room Air 08/18/24 20:00 08/18/24 20:15 08/18/24 20:00 08/18/24 20:15 08/18/24 20:00 08/18/24 20:00 Objective Labs 08/18/24 05:12 08/18/24 05:12 Labs: Laboratory Results - last 24 hr 08/18/24 05:12 WBC 6.5 RBC 4.03 L Hgb 12.1 L Hct 35.3 L MCV 88 MCH 30.0 MCHC 34.3 RDW Std Deviation 43.8 Plt Count 185 Neut % (Auto) 59 Lymph % (Auto) 26 [place] % (Auto) 11 Eos % (Auto) 3 Baso % (Auto) 1 Neut # (Auto) 3.9 Lymph # (Auto) 1.7 [place] # (Auto) 0.7 Eos # (Auto) 0.2 Baso # (Auto) 0.0 Immature Gran # (Auto) 0.02 H Absolute Nucleated RBC 0.00 Immature Gran % 0 Nucleated RBC % 0 Sodium 141 Potassium 3.8 Chloride 104 Carbon Dioxide 29.9 Anion Gap 7 BUN 9 Creatinine 0.8 Estim Creat Clear Calc 81.2 eGFR > 60 BUN/Creatinine Ratio 11 L Glucose 91 Calculated Osmolality 279 Calcium 9.1 Corrected Calcium 9.3 Phosphorus 3.5 Magnesium 2.0 Total Bilirubin 0.6 AST 10 ALT 9 L Alkaline Phosphatase 82 Total Protein 6.1 Albumin 3.7 Globulin 2.4 Albumin/Globulin Ratio 1.5 Assessment & Plan Problem List (1) Acute CVA (cerebrovascular accident): Status: Acute Assessment and plan: stable with focal left hemiparesis affecting face and UE . Continue with aspirin, Plavix and statin. FU with echocardiogram (2) Essential (primary) hypertension: Status: Acute Assessment and plan: Needs better control with lifestyle changes in addition to losartan, carvedilol and amlodipine (3) Hyperlipidemia: Status: Acute Assessment and plan: Continue with statin
--- NOTE | 2024-08-18 23:34 | VVPN_ITS ---
Telemedicine visit statement This visit was conducted with the use of interactive audio and video telecommunications system that permits real time communication between the patient and the provider. Patient's verbal consent for virtual visit was obtained on 08/17/24 Documentation for date of: 08/17/24 Subjective Subjective Interval history: Patient is in telemetry. His left facial droop and left UE weakness are improving, able to ambulate without any assistance. No new symptoms reported. Tolerating oral diet well. Slept well overnight. Virtual exam Vital Signs Temp Pulse Resp BP Pulse Ox O2 Del Method 98.4 F 65 19 143/65 H 96 Room Air 08/18/24 20:00 08/18/24 20:15 08/18/24 20:00 08/18/24 20:15 08/18/24 20:00 08/18/24 20:00 Objective Labs 08/18/24 05:12 08/18/24 05:12 Labs: Laboratory Results - last 24 hr 08/18/24 05:12 WBC 6.5 RBC 4.03 L Hgb 12.1 L Hct 35.3 L MCV 88 MCH 30.0 MCHC 34.3 RDW Std Deviation 43.8 Plt Count 185 Neut % (Auto) 59 Lymph % (Auto) 26 [place] % (Auto) 11 Eos % (Auto) 3 Baso % (Auto) 1 Neut # (Auto) 3.9 Lymph # (Auto) 1.7 [place] # (Auto) 0.7 Eos # (Auto) 0.2 Baso # (Auto) 0.0 Immature Gran # (Auto) 0.02 H Absolute Nucleated RBC 0.00 Immature Gran % 0 Nucleated RBC % 0 Sodium 141 Potassium 3.8 Chloride 104 Carbon Dioxide 29.9 Anion Gap 7 BUN 9 Creatinine 0.8 Estim Creat Clear Calc 81.2 eGFR > 60 BUN/Creatinine Ratio 11 L Glucose 91 Calculated Osmolality 279 Calcium 9.1 Corrected Calcium 9.3 Phosphorus 3.5 Magnesium 2.0 Total Bilirubin 0.6 AST 10 ALT 9 L Alkaline Phosphatase 82 Total Protein 6.1 Albumin 3.7 Globulin 2.4 Albumin/Globulin Ratio 1.5 Assessment & Plan Problem List (1) Acute CVA (cerebrovascular accident): Status: Acute Assessment and plan: stable with focal left hemiparesis affecting face and UE . Continue with aspirin, Plavix and statin. FU with echocardiogram (2) Essential (primary) hypertension: Status: Acute Assessment and plan: Needs better control with lifestyle changes in addition to losartan, carvedilol and amlodipine (3) Hyperlipidemia: Status: Acute Assessment and plan: Continue with statin
[2024-08-19] VITALS (23 sets, daily range): BP systolic 104–146; BP diastolic 47–68; PULSE 56–105; RESP 11–96; TEMP 36.2–36.8; O2SAT 94–100; BMI 32.1
[2024-08-19 03:11] LABS: Carcinoembryonic Antigen 1.7 ng/mL (0.0-5.0)
[2024-08-19 05:14] LABS: Basophils % (Auto) 1 % (0-2.5); Eosinophils # (Auto) 0.2 Thou/mm3 (0.0-0.5); Eosinophils % (Auto) 3 % (0-10); Hematocrit 35.4 % (41.0-53.0); Hemoglobin 11.6 g/dL (13.5-16.0); Immature Granulocytes % (Auto) 0 % (0-0); Immature Granulocytes Auto 0.01 Thou/mm3 (0.00-0.00); Lymphocytes # (Auto) 1.7 Thou/mm3 (1.0-4.8); Lymphocytes % (Auto) 30 % (10-50); Mean Corpuscular HGB Conc 32.8 g/dl (31.0-37.0); Mean Corpuscular Hemoglobin 29.3 pg (25.0-35.0); Mean Corpuscular Volume 89 fL (80-100); Monocytes # (Auto) 0.6 Thou/mm3 (0.0-0.8); Monocytes % (Auto) 11 % (0-12); Neutrophils % (Auto) 54 % (37-80); Nucleated Red Blood Cell % 0 /100 WBC (0); Platelet Count 171 Thou/mm3 (140-440); RDW Standard Deviation 44.7 fL (35.1-43.9); Red Blood Count 3.96 Miln/mm3 (4.50-5.90); White Blood Count 5.4 Thou/mm3 (3.8-10.6)
[2024-08-19 05:49] LABS: Alanine Aminotransferase 9 U/L (10-49); Albumin, Serum 3.5 gm/dL (3.4-4.8); Albumin/Globulin Ratio 1.5 (1.2-2.2); Alkaline Phosphatase 78 U/L (46-116); Anion Gap 9 (7-16); Aspartate Amino Transferase 12 U/L (0-34); BUN/Creatinine Ratio 10 Ratio (12-20); Bilirubin,Total 0.6 mg/dL (0.3-1.2); Blood Urea Nitrogen 7 mg/dL (9-23); Calcium 8.9 mg/dL (8.3-10.6); Calcium (Corrected) 9.3 mg/dL (8.5-10.1); Carbon Dioxide 28.3 mMol/L (20.0-31.0); Chloride 105 mMol/L (98-107); Creatinine (Component) 0.7 mg/dL (0.6-1.3); Estimated Creatinine Clearance 92.8 mL/min (>60); Globulin 2.4 gm/dL (2.3-3.5); Glucose 77 mg/dL (74-106); Osmolality,Calculated 280 (275-295); Phosphorous 3.5 mg/dL (2.4-5.1); Sodium 142 mMol/L (136-145); Total Protein 5.9 gm/dL (5.7-8.2); eGFR > 60 See Note
[2024-08-19] MEDS: SENNA TABLET 1 TAB PO (08:19)
[2024-08-19] MEDS: FAMOTIDINE INJ 10 MG/ML VIAL 2 ML 20 MG IVP ×2 (08:19→20:08)
[2024-08-19] MEDS: LOSARTAN POTASSIUM 25 MG TABLET 50 MG PO (08:19)
[2024-08-19] MEDS: CLOPIDOGREL BISULFATE 75 MG TABLET PO (08:19)
--- NOTE | 2024-08-19 10:29 | ESPR_ITS ---
<Statement entered by Travon Millan MD - 08/19/24 13:54> Patient was seen and examined at the bedside this morning. Patient reported that he has been drinking GoLytely prep and is clear now he will be getting colonoscopy today. Patient's losartan was increased to 50 mg and amlodipine was discontinued due to bradycardic episode. PT evaluation was pending. Patient will be continued on aspirin Plavix and statin therapy for stroke. Neurology recommendations are pending. Will likely start the patient Coreg and decrease the dose of losartan tomorrow if blood pressure is controlled with it as it is patient's home medications. Echo from previous 1 showed EF 55 to 60%. Patient does not remember who prescribed him Coreg however we will continue with it tomorrow morning. All labs and orders were reviewed. I saw and examined the patient, and I agree with current management stated by Dr Steve MD,PGY1. Plan of care was discussed with the attending physician and resident physician. Disclaimer: Despite multiple revisions, due to the dictation software being used, the document bellow may not be free of grammatical errors including phonetic/typographic errors. However, this does not deter from our commitment to providing health care in the patient's best interest in mind. Dr. Yana MD, PGY 2 Documentation for date of: 08/19/24 Subjective Subjective Interval history: No overnight events reported for patient. Patient is pending colonoscopy. PT followed up with patient-no additional PT needed at this time. May return home upon DC Patient has improved motor strength on left upper extremity. Improved facial drop on left side. FOBT positive. Continue Aspirin and Plavix given history of strokes and new stroke reported on MRI with this admission. Exam Vital Signs Temp Pulse Resp BP Pulse Ox O2 Del Method 97.9 F 69 22 H 142/64 H 95 Room Air 08/19/24 08:00 08/19/24 08:19 08/19/24 08:00 08/19/24 08:19 08/19/24 08:00 08/19/24 08:00 Narrative Exam General Appearance: Alert & Oriented X3, well-nourished male who is lying in bed in no acute distress HEENT: Skull symmetrical and atraumatic. Conjunctivae pink and moist. Pupils equal, round, reactive to light and accommodation (PERRL). External ear without lesion or discharge. Straight, nares patient, mucosa pink, no discharge. No thyroid nodule appreciated. No cervical lymphadenopathy. Cardio: Normal Rate and Rhythm with S1 and S2 heart sounds. Possible holoystolic murmur noted. . No bruits on carotid auscultation. No peripheral edema or cyanosis. Lungs: Symmetric with good expansion. Chest and back non-tender. Breath sounds vesicular without crackles, wheezing or rhonchi Abdomen: mild tenderness, Non-distended, Normal Reactive Bowel Sounds, hyperresonant on right lower and upper quadrant Neuro: Alert, cooperative, oriented to person, place, and time. Speech clear. CN grossly intact. Upper motor strength 4/5 and Lower motor strength 5/5. Sensation intact. Left facial drop noted near nasol-labial, improved. Objective Labs 08/19/24 04:03 08/19/24 04:03 Labs: Laboratory Results - last 24 hr 08/17/24 08/19/24 04:35 04:03 WBC 5.4 RBC 3.96 L Hgb 11.6 L Hct 35.4 L MCV 89 MCH 29.3 MCHC 32.8 RDW Std Deviation 44.7 H Plt Count 171 Neut % (Auto) 54 Lymph % (Auto) 30 [place] % (Auto) 11 Eos % (Auto) 3 Baso % (Auto) 1 Neut # (Auto) 3.0 Lymph # (Auto) 1.7 [place] # (Auto) 0.6 Eos # (Auto) 0.2 Baso # (Auto) 0.0 Immature Gran # (Auto) 0.01 H Absolute Nucleated RBC 0.00 Immature Gran % 0 Nucleated RBC % 0 Sodium 142 Potassium 4.0 Chloride 105 Carbon Dioxide 28.3 Anion Gap 9 BUN 7 L Creatinine 0.7 Estim Creat Clear Calc 92.8 eGFR > 60 BUN/Creatinine Ratio 10 L Glucose 77 Calculated Osmolality 280 Calcium 8.9 Corrected Calcium 9.3 Phosphorus 3.5 Magnesium 2.0 Total Bilirubin 0.6 AST 12 ALT 9 L Alkaline Phosphatase 78 Total Protein 5.9 Albumin 3.5 Globulin 2.4 Albumin/Globulin Ratio 1.5 Carcinoembryonic Ag 1.7 Quality Measures Quality Measures stroke Suspected type of Stroke: TIA Last known well (date): 08/16/24 Last known well (time): 20:00 Tenecteplase given: Reason(s) Tenecteplase not given: Acute bleeding diathesis (recent GI bleeding and is being worked up as an outpatient for colon CA per teleneurology) not given Rehab services: PT evaluation ordered VTE Prophylaxis: pharmaceutical Antithrombotic by day 2:: not indicated (describe) Statin ordered: <75 y/o high intensity dose Anticoagulation ordered for A-fib or flutter (current or hx): ordered Advance care planning discussed with:: patient Assessment & Plan Assessment Current Active Medications: Generic Name Dose Route Start Last Admin Trade Name Freq PRN Reason Stop Dose Admin Acetaminophen 650 mg 08/19/24 07:52 Acetaminophen 325 Mg Tablet PO 09/15/24 23:15 Q6H PRN Fever >100.3 or pain 1-3 Hydrocodone Bitart/Acetaminophen 1 tab 08/16/24 23:16 Hydrocodone/Apap 5/325 Tablet PO 08/21/24 23:15 Q4HR PRN PAIN SCALE 4-10(Mod-Sev Albuterol/Ipratropium 3 ml 08/16/24 23:14 Albuterol/Ipratropium (Duoneb) Rt Shelly 3 Ml Nebu INH 09/15/24 23:13 Q2HR PRN SHORTNESS OF BREATH OR WHEEZE Aspirin 81 mg 08/19/24 10:00 Aspirin Ec 81 Mg Tabec PO 09/18/24 09:59 QDAY RAGINI Atorvastatin Calcium 40 mg 08/18/24 21:00 08/18/24 20:15 Atorvastatin Calcium 20 Mg Tablet PO 09/17/24 20:59 40 mg HS RAGINI Administration Clopidogrel Bisulfate 75 mg 08/17/24 09:00 08/19/24 08:19 Clopidogrel Bisulfate 75 Mg Tablet PO 09/16/24 08:59 75 mg QDAY RAGINI Administration Famotidine 20 mg 08/17/24 09:00 08/19/24 08:19 Famotidine Inj 10 Mg/Ml Vial 2 Ml IVP 09/16/24 08:59 20 mg Q12HR RAGINI Administration Labetalol HCl 10 mg 08/16/24 23:23 Labetalol Inj 5 Mg/Ml Vial 20 Ml IVP 09/15/24 23:29 Q10MIN PRN SBP > 220 Losartan Potassium 50 mg 08/19/24 09:00 08/19/24 08:19 Losartan Potassium 25 Mg Tablet PO 09/18/24 08:59 50 mg QDAY RAGINI Administration Ondansetron HCl 4 mg 08/16/24 23:16 Ondansetron Inj 2 Mg/Ml Inj 2 Ml IV 09/15/24 23:15 Q6H PRN NAUSEA OR VOMITING Protocol Sennosides 1 tab 08/17/24 09:00 08/19/24 08:19 Senna Tablet PO 09/16/24 08:59 1 tab QDAY RAGINI Administration Protocol Plan Patient is an 84-year-old male with past medical history significant for essential hypertension, hyperlipidemia, chronic stroke, history of prostate cancer s/p radiation September 2012 in remission and sigmoid colon mass for investigation presenting today with a chief complaint of left face tingling and left arm tingling. Patient will be admitted for workup and management of stroke rule out. #Lower GI bleed #Sigmoid colon mass for investigation #History of NC bleed #History of prostate cancer s/p radiation September 2012 in remission Patient says for the past few months he has bright red blood upon wiping every few days. Patient also had an abdomen/pelvis CT last year April which showed a sigmoid mass suspicious for neoplasm. Currently he is awaiting outpatient GI follow-up for investigation. H&H stable Plan: ? GI, Dr. Orozco consulted. Appreciate recommendations. -golytely started for colonoscopy prep-->colonoscopy tonight. #Acute R parietal lobe infarct #History of right parietal infarct 05/12/2024 Patient presented with left facial numbness and left arm tingling. On exam patient had mild slurred speech, left facial tingling and left arm tingling. Today, improved as compared to admission NIHSS score of 2. Previous echo on file showed negative PFO and ASD (05/12/2024). This is patient's third stroke Head CT negative for acute hemorrhage, mass effect or midline shift. Head/neck CTA negative for significant neck arterial stenosis and cerebral large vessel arterial occlusions. MRI brain 10 mm acute infarct right parietal lobe Plan: - PT/OT referrals placed - PRN Acetaminophen 650mg to avoid hyperthermia - Plavix 75mg PO qd and Aspirin 81 mg Qday - Labetalol 10 Mg IV Q 10 minutes as needed for SBP >220, restarted home medication, out of permissive HTN window - Dr Diop consulted, pending in-house Neurology recommendations #Essential hypertension #Hyperlipidemia On admission BP 158/79. Home medication losartan 25 Mg p.o. daily, Coreg 6.25 Mg p.o. twice daily and amlodipine 10 Mg p.o. daily Home medication atorvastatin 80 Mg p.o. every afternoon Plan: ? Resumed home medication atorvastatin 40 Mg p.o. every afternoon -Resumed Losartan 25 mg QDay -Consider resuming Coreg 6.25 mg PO on 08/20/2024 -Holding amlodipine 10 mg HS -out of window for permissive for permissive HTN Health maintenance: Disposition: GI consult and colonoscopy Diet: clear liquids Lines: pIVs GI Prophylaxis: Famotidine 20 mg IV BID Thrombo Prophylaxis: SCDs Code status: FULL CODE - The patient's plan was discussed with attending Dr. Ramos and senior residents Dr. Yana Wilson MD PGY1 Internal Medicine Attending Provider Attestation/Addendum I attest that I was physically present for the evaluation, physical examination, lab and imaging review of the patient with the residents. I discussed the case with the residents and agree with the findings and plans of care as documented above. At bedside today, patient states he is feeling better. Continues to have improving strength on his left upper limb. Alert and oriented x4. Saturating well on room air. We will continue with PT. Continues to be on Clopidogrel and statin, added aspirin as per neurology recommendation. Patient awaiting colonoscopy with GI today. Meliza Ramos MD
--- NOTE | 2024-08-19 14:59 | PC.PT ---
PT eval only. Patient is xI with bed mobility, transfers, and ambulation with no DME. Patient is at his PLOF. Patient is safe to ambulate to the bathroom and in the sullivan with no DME. RN notified.
--- NOTE | 2024-08-19 18:10 | SUR.PHASEI ---
pt awake and alert, breathing unlabored on 2l nc. v/s stable. report called to Sarah [facility]ERNA. pt will be transferred to room at this time.
[2024-08-19] MEDS: ASPIRIN EC 81 MG TABEC PO (18:32)
[2024-08-19] MEDS: ATORVASTATIN CALCIUM 20 MG TABLET 40 MG PO (20:08)
--- NOTE | 2024-08-19 22:29 | ESPR_ITS ---
Documentation for date of: 08/19/24 Subjective Subjective Interval history: Patient was seen in [facility] today, continues to improve in his left facial and UE weakness. No headache or dz reported, tolerating oral diet well. Exam - Neurology Vital Signs Temp Pulse Resp BP Pulse Ox O2 Del Method O2 Flow Rate 97.5 F 66 23 H 120/64 95 Room Air 2 08/19/24 20:00 08/19/24 20:00 08/19/24 20:00 08/19/24 20:00 08/19/24 20:00 08/19/24 20:00 08/19/24 17:50 Narrative Exam GENERAL APPEARANCE: Well hydrated, well-nourished in no acute distress. HEENT: Normocephalic, atraumatic, extraocular movements intact. Pupils: Equal reacting to light and accommodation NECK: Supple, no JVD or bruits. CARDIOVASULAR: Heart: S1, S2 heard, regular without S3-S4 or murmur no rubs or gallops. LUNGS/CHEST: Clear to auscultation bilaterally. No rails, rhonchi, or wheezing. Normal inspection. ABDOMEN: Soft, nontender, with normal bowel sounds. No pulsatile masses. No rebound, rigidity, or guarding. Normal inspection and palpation. EXTREMITIES: Normal inspection and palpation. No edema, clubbing or cyanosis. SKIN: Warm and dry without rashes. Normal inspection. MUSCULOSKELETAL: No cervical, thoracic, lumbar or midline bony tenderness. Normal inspection. NEURO: Alert, awake and oriented x3. Cranial nerves: II through XII grossly intact with exception of improving left facial weakness of upper motor neuron type. Speech and language: Normal with no dysarthria or dysphasia. Motor system: Tone and bulk: Normal: Strength: 5 out of 5 in all 4 extremities; mild left pronator drift noted. Deep tendon reflexes: 2+ bilaterally symmetrical. Plantar reflex: Downgoing bilaterally. Sensory system: Intact to all modalities of sensation bilaterally. Coordination: Intact to [id number] and [id number] test bilaterally. No ataxia, but mild dysmetria and dysdiadochokinesia noted in the left upper extremity. No intention tremors noted. Gait: Normal. Toe, heel, tandem walk all are normal. Romberg: Negative. No signs of meningeal irritation noted. PSYCHIATRIC: Normal mood and affect. Objective Labs 08/20/24 05:52 08/20/24 05:52 Labs: Laboratory Results - last 24 hr 08/17/24 08/19/24 04:35 04:03 WBC 5.4 RBC 3.96 L Hgb 11.6 L Hct 35.4 L MCV 89 MCH 29.3 MCHC 32.8 RDW Std Deviation 44.7 H Plt Count 171 Neut % (Auto) 54 Lymph % (Auto) 30 [place] % (Auto) 11 Eos % (Auto) 3 Baso % (Auto) 1 Neut # (Auto) 3.0 Lymph # (Auto) 1.7 [place] # (Auto) 0.6 Eos # (Auto) 0.2 Baso # (Auto) 0.0 Immature Gran # (Auto) 0.01 H Absolute Nucleated RBC 0.00 Immature Gran % 0 Nucleated RBC % 0 Sodium 142 Potassium 4.0 Chloride 105 Carbon Dioxide 28.3 Anion Gap 9 BUN 7 L Creatinine 0.7 Estim Creat Clear Calc 92.8 eGFR > 60 BUN/Creatinine Ratio 10 L Glucose 77 Calculated Osmolality 280 Calcium 8.9 Corrected Calcium 9.3 Phosphorus 3.5 Magnesium 2.0 Total Bilirubin 0.6 AST 12 ALT 9 L Alkaline Phosphatase 78 Total Protein 5.9 Albumin 3.5 Globulin 2.4 Albumin/Globulin Ratio 1.5 Carcinoembryonic Ag 1.7 Assessment & Plan Assessment and plan (1) Acute CVA (cerebrovascular accident): Status: Acute Assessment and plan: mri Brain showed acute infarct in the right parietal area. improving in deficit: left facial and UE weakness Continue with BP control and statin hold off on antiplatelet agents because of GI bleeding (2) Essential (primary) hypertension: Status: Acute Assessment and plan: continue Losartan and Carvedilol (3) Hyperlipidemia: Status: Acute Assessment and plan: continue with statin (4) Malignant neoplasm of sigmoid colon: Status: Acute Assessment and plan: Follow-up with colonoscopy findings
[2024-08-20] VITALS (14 sets, daily range): BP systolic 116–156; BP diastolic 63–80; PULSE 55–92; RESP 13–97; TEMP 36.2–37.2; O2SAT 94–98; BMI 31.7; BMI 31.6
[2024-08-20 06:08] LABS: Basophils % (Auto) 0 % (0-2.5); Eosinophils # (Auto) 0.1 Thou/mm3 (0.0-0.5); Eosinophils % (Auto) 2 % (0-10); Hematocrit 36.7 % (41.0-53.0); Immature Granulocytes % (Auto) 0 % (0-0); Immature Granulocytes Auto 0.02 Thou/mm3 (0.00-0.00); Lymphocytes # (Auto) 1.4 Thou/mm3 (1.0-4.8); Lymphocytes % (Auto) 22 % (10-50); Mean Corpuscular HGB Conc 32.7 g/dl (31.0-37.0); Mean Corpuscular Hemoglobin 28.8 pg (25.0-35.0); Mean Corpuscular Volume 88 fL (80-100); Monocytes # (Auto) 0.5 Thou/mm3 (0.0-0.8); Monocytes % (Auto) 9 % (0-12); Neutrophils # (Auto) 4.2 Thou/mm3 (1.8-7.7); Neutrophils % (Auto) 67 % (37-80); Nucleated Red Blood Cell % 0 /100 WBC (0); Platelet Count 166 Thou/mm3 (140-440); RDW Standard Deviation 43.5 fL (35.1-43.9); Red Blood Count 4.16 Miln/mm3 (4.50-5.90); White Blood Count 6.2 Thou/mm3 (3.8-10.6)
[2024-08-20 07:05] LABS: Alanine Aminotransferase 9 U/L (10-49); Albumin, Serum 3.7 gm/dL (3.4-4.8); Albumin/Globulin Ratio 1.5 (1.2-2.2); Alkaline Phosphatase 80 U/L (46-116); Anion Gap 7 (7-16); Aspartate Amino Transferase 12 U/L (0-34); BUN/Creatinine Ratio 6 Ratio (12-20); Bilirubin,Total 0.9 mg/dL (0.3-1.2); Blood Urea Nitrogen 5 mg/dL (9-23); Calcium 9.1 mg/dL (8.3-10.6); Calcium (Corrected) 9.3 mg/dL (8.5-10.1); Chloride 103 mMol/L (98-107); Creatinine (Component) 0.8 mg/dL (0.6-1.3); Estimated Creatinine Clearance 79.5 mL/min (>60); Globulin 2.4 gm/dL (2.3-3.5); Glucose 86 mg/dL (74-106); Magnesium 1.8 mg/dL (1.6-2.6); Osmolality,Calculated 273 (275-295); Phosphorous 3.5 mg/dL (2.4-5.1); Potassium 4.1 mMol/L (3.4-5.1); Sodium 139 mMol/L (136-145); Total Protein 6.1 gm/dL (5.7-8.2); eGFR > 60 See Note
[2024-08-20] MEDS: FAMOTIDINE INJ 10 MG/ML VIAL 2 ML 20 MG IVP ×2 (08:30→23:56)
[2024-08-20] MEDS: Magnesium Sulfate 2 GM Ivpb 2 GM/50 ML BAG IV (08:30)
[2024-08-20] MEDS: carVEDILOL 3.125 MG TABLET 6.25 MG PO ×2 (08:48→18:16)
[2024-08-20] MEDS: LOSARTAN POTASSIUM 25 MG TABLET PO (08:49)
--- NOTE | 2024-08-20 08:52 | PD.SURCONS ---
HPI Consult details Consult date: 08/20/24 Reason for consultation narrative: Near obstructing sigmoid tumor History of present illness: 84-year-old male with history of hypertension had CVA with left-sided weakness on April. He was started on aspirin and Plavix. He was readmitted few days ago with numbness and tingling of left upper extremity. He has had a CT scan of abdomen and pelvis in January 2024 that revealed masslike area in the sigmoid, colonoscopy was recommended and was not done. During this admission patient underwent colonoscopy by Dr. Orozco that revealed near obstructing mass of sigmoid colon highly suspicious for malignancy. Patient also has history of prostate cancer s/p radiation and hormonal manipulation therapy. Review of Systems Constitutional Constitutional: Denies chills and Denies fever(s) Cardiovascular Cardiovascular: Denies chest pain Respiratory Respiratory: Denies cough Gastrointestinal Gastrointestinal: Denies abdominal pain, Denies hematochezia, Denies nausea and Denies vomiting Genitourinary Genitourinary: Denies difficulty urinating Hematologic/Lymphatic Hematologic/Lymphatic: Denies easy bleeding and Reports easy bruising Past Medical History Surgical History OTHER SURGICAL HX: Cholecystectomy Social History SMOKING STATUS: Former smoker SUBSTANCE USE: does not use ALCOHOL: Former Meds Home Medications and Allergies Home Medications ?Medication ?Instructions ?Recorded ?Confirmed ?Type carvedilol 6.25 mg tablet (Coreg) 6.25 mg PO BID ##0 12/01/10 08/17/24 History famotidine 20 mg tablet 20 mg PO BID PRN Heartburn 07/21/21 08/17/24 History losartan 25 mg tablet 25 mg PO DAILY 08/17/24 08/17/24 History Allergies Allergy/AdvReac Type Severity Reaction Status Date / Time No Known Allergies Allergy Verified 05/12/24 05:17 Exam Vital Signs Temp Pulse Resp BP Pulse Ox O2 Del Method O2 Flow Rate 99.0 F 87 15 127/68 97 Room Air 2 08/20/24 04:00 08/20/24 08:49 08/20/24 07:14 08/20/24 08:49 08/20/24 07:14 08/20/24 04:00 08/19/24 17:50 Constitutional Constitutional: no acute distress Routine Abdominal Exam Comments: Abdomen is soft and mildly distended. No tenderness or evidence of peritonitis at this time Results Results: Laboratory Laboratory results: results reviewed Assessment & Plan Problem List (1) Malignant neoplasm of sigmoid colon: Status: Acute Plan Patient most likely has malignant neoplasm of sigmoid colon that is near obstructing. He will require sigmoid colectomy. However, he had a recent stroke and he is on Plavix. His Plavix needs to be held for 7 days prior surgical intervention. I had a lengthy discussion with the patient and his family and explained to them that because of his recent stroke he is at high risk for another stroke blood clot, heart attack or . They wish to discuss among themselves prior to making her final decision. I wish to extend my most sincere thanks to Dr. Orozco for consulting me, allowing me to evaluate participate in care of this patient.
[2024-08-20 08:55] LABS: Carcinoembryonic Antigen 1.4 ng/mL (0.0-5.0)
--- NOTE | 2024-08-20 09:17 | PC.SS ---
SS follow up: was informed by PT that the patient was requesting resources to get meals delivered to his home residence. CLINIC OFFICE COORDINATOR met with patient at bed side and provided meal resources and explained to the patient how services work. Patient verbalized understanding, informed he would have his daughter assist him when discharged home.
--- NOTE | 2024-08-20 10:19 | PC.SS ---
SS update: patient is pending colonoscopy.
[2024-08-20] MEDS: ENOXAPARIN SOD INJ 40 MG/0.4 ML SYRINGE SC (11:43)
--- NOTE | 2024-08-20 13:16 | ESPR_ITS ---
<Statement entered by Travon Millan MD - 08/20/24 14:51> Patient was seen and examined at the bedside this morning. Colonoscopy results showed mass in the colon which is ulcerated and large in size. GI specialist consulted surgeon, Dr Jade for further evaluation and he plans to do surgery tomorrow as patient was taking aspirin and Plavix. Recommended to hold on aspirin Plavix and stopped Lovenox Likely perform surgery tomorrow morning. Patient is n.p.o. after midnight. Daughter was updated regarding the plan. Otherwise patient's labs were unremarkable and blood pressure remained stable. CEA and PSA levels were ordered. All labs and orders were reviewed. I saw and examined the patient, and I agree with current management stated by Dr Steve MD,PGY1. Plan of care was discussed with the attending physician and resident physician. Disclaimer: Despite multiple revisions, due to the dictation software being used, the document bellow may not be free of grammatical errors including phonetic/typographic errors. However, this does not deter from our commitment to providing health care in the patient's best interest in mind. Dr. Yana MD, PGY 2 Documentation for date of: 08/20/24 Subjective Subjective Interval history: No overnight events reported for patient. Colonoscopy obtained night, ulcerated partially obstructing large mass found in the sigmoid colon and positive for hemorrhoids. Patinet deneid abdominal pain. Patient stated still able to pass gas and having bowel movemetns. Patient was understanding of results and would like his daughter present in all discussions if surgery will proceed. Updated patient on results. Plan for surgery on Monday, patient will remained in the hospital. Holding eliquis and asprin. Levenox 40 mg sc qday. Improved motor function of left upper extremity. NIHSS score 2. Per PT-->Benefit with HH OT. Exam Vital Signs Temp Pulse Resp BP Pulse Ox O2 Del Method O2 Flow Rate 98.7 F 77 20 127/68 96 Room Air 2 08/20/24 08:00 08/20/24 12:00 08/20/24 08:00 08/20/24 08:49 08/20/24 08:00 08/20/24 08:00 08/19/24 17:50 Narrative Exam General Appearance: Alert & Oriented X3, well-nourished male who is lying in bed in no acute distress HEENT: Skull symmetrical and atraumatic. Conjunctivae pink and moist. Pupils equal, round, reactive to light and accommodation (PERRL). External ear without lesion or discharge. Straight, nares patient, mucosa pink, no discharge. No thyroid nodule appreciated. No cervical lymphadenopathy. Cardio: Normal Rate and Rhythm with S1 and S2 heart sounds. Possible holoystolic murmur noted. . No bruits on carotid auscultation. No peripheral edema or cyanosis. Lungs: Symmetric with good expansion. Chest and back non-tender. Breath sounds vesicular without crackles, wheezing or rhonchi Abdomen: mild tenderness, Non-distended, Normal Reactive Bowel Sounds, hyperresonant on right lower and upper quadrant Neuro: Alert, cooperative, oriented to person, place, and time. Speech clear. CN grossly intact. Upper motor strength 4/5 and Lower motor strength 5/5. Sensation intact. Left facial drop noted near nasol-labial, improved. Objective Labs 08/21/24 05:05 08/21/24 05:05 Labs: Laboratory Results - last 24 hr 08/20/24 05:52 WBC 6.2 RBC 4.16 L Hgb 12.0 L Hct 36.7 L MCV 88 MCH 28.8 MCHC 32.7 RDW Std Deviation 43.5 Plt Count 166 Neut % (Auto) 67 Lymph % (Auto) 22 [place] % (Auto) 9 Eos % (Auto) 2 Baso % (Auto) 0 Neut # (Auto) 4.2 Lymph # (Auto) 1.4 [place] # (Auto) 0.5 Eos # (Auto) 0.1 Baso # (Auto) 0.0 Immature Gran # (Auto) 0.02 H Absolute Nucleated RBC 0.00 Immature Gran % 0 Nucleated RBC % 0 Sodium 139 Potassium 4.1 Chloride 103 Carbon Dioxide 29.0 Anion Gap 7 BUN 5 L Creatinine 0.8 Estim Creat Clear Calc 79.5 eGFR > 60 BUN/Creatinine Ratio 6 L Glucose 86 Calculated Osmolality 273 L Calcium 9.1 Corrected Calcium 9.3 Phosphorus 3.5 Magnesium 1.8 Total Bilirubin 0.9 AST 12 ALT 9 L Alkaline Phosphatase 80 Total Protein 6.1 Albumin 3.7 Globulin 2.4 Albumin/Globulin Ratio 1.5 Carcinoembryonic Ag 1.4 Quality Measures Quality Measures stroke Suspected type of Stroke: TIA Last known well (date): 08/16/24 Last known well (time): 20:00 Tenecteplase given: Reason(s) Tenecteplase not given: Acute bleeding diathesis (recent GI bleeding and is being worked up as an outpatient for colon CA per teleneurology) not given Rehab services: PT evaluation ordered VTE Prophylaxis: pharmaceutical Antithrombotic by day 2:: not indicated (describe) Statin ordered: <75 y/o high intensity dose Anticoagulation ordered for A-fib or flutter (current or hx): ordered Advance care planning discussed with:: patient Assessment & Plan Assessment Current Active Medications: Generic Name Dose Route Start Last Admin Trade Name Freq PRN Reason Stop Dose Admin Acetaminophen 650 mg 08/19/24 07:52 Acetaminophen 325 Mg Tablet PO 09/15/24 23:15 Q6H PRN Fever >100.3 or pain 1-3 Hydrocodone Bitart/Acetaminophen 1 tab 08/16/24 23:16 Hydrocodone/Apap 5/325 Tablet PO 08/21/24 23:15 Q4HR PRN PAIN SCALE 4-10(Mod-Sev Albuterol/Ipratropium 3 ml 08/16/24 23:14 Albuterol/Ipratropium (Duoneb) Rt Shelly 3 Ml Nebu INH 09/15/24 23:13 Q2HR PRN SHORTNESS OF BREATH OR WHEEZE Aspirin 81 mg 08/19/24 10:00 08/20/24 10:46 Aspirin Ec 81 Mg Tabec PO 09/18/24 09:59 Not Given QDAY RAGINI Atorvastatin Calcium 40 mg 08/18/24 21:00 08/19/24 20:08 Atorvastatin Calcium 20 Mg Tablet PO 09/17/24 20:59 40 mg HS RAGINI Administration Carvedilol 6.25 mg 08/20/24 08:00 08/20/24 08:48 Carvedilol 3.125 Mg Tablet PO 09/19/24 07:59 6.25 mg BIDWM RAGINI Administration Clopidogrel Bisulfate 75 mg 08/21/24 09:00 Clopidogrel Bisulfate 75 Mg Tablet PO 09/20/24 08:59 QDAY RAGINI Enoxaparin Sodium 40 mg 08/20/24 11:45 08/20/24 11:43 Enoxaparin Sod Inj 40 Mg/0.4 Ml Syringe SC 09/03/24 11:44 40 mg QDAY RAGINI Administration Famotidine 20 mg 08/17/24 09:00 08/20/24 08:30 Famotidine Inj 10 Mg/Ml Vial 2 Ml IVP 09/16/24 08:59 20 mg Q12HR RAGINI Administration Labetalol HCl 10 mg 08/16/24 23:23 Labetalol Inj 5 Mg/Ml Vial 20 Ml IVP 09/15/24 23:29 Q10MIN PRN SBP > 220 Losartan Potassium 25 mg 08/20/24 09:00 08/20/24 08:49 Losartan Potassium 25 Mg Tablet PO 09/19/24 08:59 25 mg QDAY RAGINI Administration Ondansetron HCl 4 mg 08/16/24 23:16 Ondansetron Inj 2 Mg/Ml Inj 2 Ml IV 09/15/24 23:15 Q6H PRN NAUSEA OR VOMITING Protocol Sennosides 1 tab 08/17/24 09:00 08/20/24 10:46 Senna Tablet PO 09/16/24 08:59 Not Given QDAY RAGINI Protocol Plan Patient is an 84-year-old male with past medical history significant for essential hypertension, hyperlipidemia, chronic stroke, history of prostate cancer s/p radiation September 2012 in remission and sigmoid colon mass for investigation presenting today with a chief complaint of left face tingling and left arm tingling. Patient will be admitted for workup and management of stroke rule out. History of prostate cancer. #Lower GI bleed, stable #Sigmoid colon mass for investigation s/p biopsy #History of SD bleed #History of prostate cancer s/p radiation September 2012 in remission Patient says for the past few months he has bright red blood upon wiping every few days. Patient also had an abdomen/pelvis CT last year April which showed a sigmoid mass suspicious for neoplasm and colonoscopy on 08/19/2024 showed an partially obstructing mass. F/U with PSA in AM. Plan: -Plan for surgery for Tuesday, August 27, 2024-->remain hospitalized. -HOLDING aspirin and plavix -PSA AM ?GI, Dr. Orozco consulted. Appreciate recommendations. -general surgery consulted, appreciate recommendations, Dr. Jade. #Acute R parietal lobe infarct #History of right parietal infarct 05/12/2024 Patient presented with left facial numbness and left arm tingling. On exam patient had mild slurred speech, left facial tingling and left arm tingling. Today, improved as compared to admission NIHSS score of 2. Previous echo on file showed negative PFO and ASD (05/12/2024). This is patient's third stroke Head CT negative for acute hemorrhage, mass effect or midline shift. Head/neck CTA negative for significant neck arterial stenosis and cerebral large vessel arterial occlusions. MRI brain 10 mm acute infarct right parietal lobe Plan: - Plavix 75mg PO qd and Aspirin 81 mg Qday-HOLDING tumor resection in colon - PT/OT referrals placed--> HH, pending major surgey now - PRN Acetaminophen 650mg to avoid hyperthermia - Labetalol 10 Mg IV Q 10 minutes as needed for SBP >220, restarted home medication, out of permissive HTN window home meds resumed - Dr Diop consulted, pending in-house Neurology recommendations #Essential hypertension #Hyperlipidemia On admission BP 158/79. Home medication losartan 25 Mg p.o. daily, Coreg 6.25 Mg p.o. twice daily and amlodipine 10 Mg p.o. daily Home medication atorvastatin 80 Mg p.o. every afternoon Plan: ? Resumed home medication atorvastatin 40 Mg p.o. every afternoon -Resumed Losartan 25 mg QDay -Resume Coreg 6.25 mg PO -Holding amlodipine 10 mg HS -out of window for permissive for permissive HTN Health maintenance: Disposition: Patient will remained hospitalized for tumor resection at colon site for partially obstructing tumor on 08/27/2024 Diet: clear liquids, advanced diet as tolerated. Lines: pIVs, tele box GI Prophylaxis: Famotidine 20 mg IV BID Thrombo Prophylaxis: SCDs/Levonox Code status: FULL CODE - The patient's plan was discussed with attending Dr. Ramos and senior residents Dr. Yana Wilson MD PGY1 Internal Medicine Attending Provider Attestation/Addendum I attest that I was physically present for the evaluation, physical examination, lab and imaging review of the patient with the residents. I discussed the case with the residents and agree with the findings and plans of care as documented above. Meliza Ramos MD
--- NOTE | 2024-08-20 20:47 | PD.IMPROG ---
Documentation for date of: 08/20/24 Subjective Subjective Interval history: Surgical consult appreciated Exam Vital Signs Temp Pulse Resp BP Pulse Ox O2 Del Method O2 Flow Rate 97.1 F 92 14 156/80 H 98 Room Air 2 08/20/24 16:00 08/20/24 18:16 08/20/24 16:00 08/20/24 18:16 08/20/24 16:00 08/20/24 16:00 08/19/24 17:50 Objective Labs 08/20/24 05:52 08/20/24 05:52 Labs: Laboratory Results - last 24 hr 08/20/24 05:52 WBC 6.2 RBC 4.16 L Hgb 12.0 L Hct 36.7 L MCV 88 MCH 28.8 MCHC 32.7 RDW Std Deviation 43.5 Plt Count 166 Neut % (Auto) 67 Lymph % (Auto) 22 [place] % (Auto) 9 Eos % (Auto) 2 Baso % (Auto) 0 Neut # (Auto) 4.2 Lymph # (Auto) 1.4 [place] # (Auto) 0.5 Eos # (Auto) 0.1 Baso # (Auto) 0.0 Immature Gran # (Auto) 0.02 H Absolute Nucleated RBC 0.00 Immature Gran % 0 Nucleated RBC % 0 Sodium 139 Potassium 4.1 Chloride 103 Carbon Dioxide 29.0 Anion Gap 7 BUN 5 L Creatinine 0.8 Estim Creat Clear Calc 79.5 eGFR > 60 BUN/Creatinine Ratio 6 L Glucose 86 Calculated Osmolality 273 L Calcium 9.1 Corrected Calcium 9.3 Phosphorus 3.5 Magnesium 1.8 Total Bilirubin 0.9 AST 12 ALT 9 L Alkaline Phosphatase 80 Total Protein 6.1 Albumin 3.7 Globulin 2.4 Albumin/Globulin Ratio 1.5 Carcinoembryonic Ag 1.4 Impressions Impression: # Obstructing lesion sigmoid colon most likely malignant Patient can be off the Plavix for 5 days before surgical intervention can be done This is a big enough lesion I am afraid if he do not operate on him during this hospitalization he can have a complete obstruction then will require diverting colostomy Currently he is clean and well-prepared for the surgical intervention Assessment & Plan A&P Narrative # Sigmoid colon mass Case discussed with internal medicine team Clear liquid diet GoLytely prep Colonoscopy tentatively scheduled for tomorrow morning if the patient is clear CEA level Other medical problems include # Right parietal infarct 10 mm # Prostate carcinoma 2013 s/p radiation therapy # Hyperlipidemia # Essential hypertension Thank you very much for the opportunity to participate in the care of this patient Time Spent With Patient Time: Total time spent is greater than 50% in coordination of care (as documented) at patient's floor/unit and/or counseling patient:
--- NOTE | 2024-08-20 23:01 | PD.NEUROPROG ---
Documentation for date of: 08/20/24 Subjective Subjective Interval history: Patient was seen in [facility] today, continues to improve in his left facial and UE weakness. No headache or dz reported, tolerating oral diet well. Exam - Neurology Vital Signs Temp Pulse Resp BP Pulse Ox O2 Del Method O2 Flow Rate 97.1 F 65 17 116/63 94 L Room Air 2 08/20/24 20:00 08/20/24 20:00 08/20/24 20:00 08/20/24 20:00 08/20/24 20:00 08/20/24 20:00 08/19/24 17:50 Narrative Exam GENERAL APPEARANCE: Well hydrated, well-nourished in no acute distress. HEENT: Normocephalic, atraumatic, extraocular movements intact. Pupils: Equal reacting to light and accommodation NECK: Supple, no JVD or bruits. CARDIOVASULAR: Heart: S1, S2 heard, regular without S3-S4 or murmur no rubs or gallops. LUNGS/CHEST: Clear to auscultation bilaterally. No rails, rhonchi, or wheezing. Normal inspection. ABDOMEN: Soft, nontender, with normal bowel sounds. No pulsatile masses. No rebound, rigidity, or guarding. Normal inspection and palpation. EXTREMITIES: Normal inspection and palpation. No edema, clubbing or cyanosis. SKIN: Warm and dry without rashes. Normal inspection. MUSCULOSKELETAL: No cervical, thoracic, lumbar or midline bony tenderness. Normal inspection. NEURO: Alert, awake and oriented x3. Cranial nerves: II through XII grossly intact with exception of improving left facial weakness of upper motor neuron type. Speech and language: Normal with no dysarthria or dysphasia. Motor system: Tone and bulk: Normal: Strength: 5 out of 5 in all 4 extremities; mild left pronator drift noted. Deep tendon reflexes: 2+ bilaterally symmetrical. Plantar reflex: Downgoing bilaterally. Sensory system: Intact to all modalities of sensation bilaterally. Coordination: Intact to [id number] and [id number] test bilaterally. No ataxia, but mild dysmetria and dysdiadochokinesia noted in the left upper extremity. No intention tremors noted. Gait: Normal. Toe, heel, tandem walk all are normal. Romberg: Negative. No signs of meningeal irritation noted. PSYCHIATRIC: Normal mood and affect. Objective Labs 08/20/24 05:52 08/20/24 05:52 Labs: Laboratory Results - last 24 hr 08/20/24 05:52 WBC 6.2 RBC 4.16 L Hgb 12.0 L Hct 36.7 L MCV 88 MCH 28.8 MCHC 32.7 RDW Std Deviation 43.5 Plt Count 166 Neut % (Auto) 67 Lymph % (Auto) 22 [place] % (Auto) 9 Eos % (Auto) 2 Baso % (Auto) 0 Neut # (Auto) 4.2 Lymph # (Auto) 1.4 [place] # (Auto) 0.5 Eos # (Auto) 0.1 Baso # (Auto) 0.0 Immature Gran # (Auto) 0.02 H Absolute Nucleated RBC 0.00 Immature Gran % 0 Nucleated RBC % 0 Sodium 139 Potassium 4.1 Chloride 103 Carbon Dioxide 29.0 Anion Gap 7 BUN 5 L Creatinine 0.8 Estim Creat Clear Calc 79.5 eGFR > 60 BUN/Creatinine Ratio 6 L Glucose 86 Calculated Osmolality 273 L Calcium 9.1 Corrected Calcium 9.3 Phosphorus 3.5 Magnesium 1.8 Total Bilirubin 0.9 AST 12 ALT 9 L Alkaline Phosphatase 80 Total Protein 6.1 Albumin 3.7 Globulin 2.4 Albumin/Globulin Ratio 1.5 Carcinoembryonic Ag 1.4 Assessment & Plan Assessment and plan (1) Acute CVA (cerebrovascular accident): Status: Acute Assessment and plan: mri Brain showed acute infarct in the right parietal area. improving in deficit: left facial and UE weakness Continue with BP control and statin hold off on antiplatelet agents because of GI bleeding (2) Essential (primary) hypertension: Status: Acute Assessment and plan: continue Losartan and Carvedilol (3) Hyperlipidemia: Status: Acute Assessment and plan: continue with statin (4) Malignant neoplasm of sigmoid colon: Status: Acute Assessment and plan: colonoscopy : showed hemorrhoids, divericulitis and malignant sigmoid colon, path pending\ Oncology evaluation pending CEA pending
[2024-08-20] MEDS: ATORVASTATIN CALCIUM 20 MG TABLET 40 MG PO (23:56)
[2024-08-21] VITALS (11 sets, daily range): BP systolic 120–160; BP diastolic 63–77; PULSE 53–73; RESP 16–100; TEMP 36.3–37; O2SAT 94–100; BMI 31.6
[2024-08-21 06:16] LABS: Prostate Specific Antigen 7.21 ng/mL (0-4.00)
[2024-08-21 06:21] LABS: Basophils % (Auto) 0 % (0-2.5); Eosinophils # (Auto) 0.1 Thou/mm3 (0.0-0.5); Eosinophils % (Auto) 3 % (0-10); Hematocrit 37.4 % (41.0-53.0); Hemoglobin 12.6 g/dL (13.5-16.0); Immature Granulocytes % (Auto) 0 % (0-0); Immature Granulocytes Auto 0.02 Thou/mm3 (0.00-0.00); Lymphocytes # (Auto) 1.3 Thou/mm3 (1.0-4.8); Lymphocytes % (Auto) 26 % (10-50); Mean Corpuscular HGB Conc 33.7 g/dl (31.0-37.0); Mean Corpuscular Hemoglobin 29.7 pg (25.0-35.0); Mean Corpuscular Volume 88 fL (80-100); Monocytes # (Auto) 0.5 Thou/mm3 (0.0-0.8); Monocytes % (Auto) 10 % (0-12); Neutrophils % (Auto) 61 % (37-80); Nucleated Red Blood Cell % 0 /100 WBC (0); Platelet Count 175 Thou/mm3 (140-440); Red Blood Count 4.24 Miln/mm3 (4.50-5.90); White Blood Count 4.9 Thou/mm3 (3.8-10.6)
[2024-08-21 06:49] LABS: Alanine Aminotransferase 7 U/L (10-49); Albumin, Serum 3.8 gm/dL (3.4-4.8); Albumin/Globulin Ratio 1.5 (1.2-2.2); Alkaline Phosphatase 77 U/L (46-116); Anion Gap 8 (7-16); Aspartate Amino Transferase 11 U/L (0-34); BUN/Creatinine Ratio 9 Ratio (12-20); Blood Urea Nitrogen 7 mg/dL (9-23); Calcium 9.3 mg/dL (8.3-10.6); Calcium (Corrected) 9.5 mg/dL (8.5-10.1); Carbon Dioxide 28.4 mMol/L (20.0-31.0); Chloride 104 mMol/L (98-107); Creatinine (Component) 0.8 mg/dL (0.6-1.3); Estimated Creatinine Clearance 79.5 mL/min (>60); Globulin 2.5 gm/dL (2.3-3.5); Glucose 88 mg/dL (74-106); Magnesium 2.1 mg/dL (1.6-2.6); Osmolality,Calculated 276 (275-295); Phosphorous 3.8 mg/dL (2.4-5.1); Potassium 4.3 mMol/L (3.4-5.1); Sodium 140 mMol/L (136-145); Total Protein 6.3 gm/dL (5.7-8.2); eGFR > 60 See Note
[2024-08-21] MEDS: carVEDILOL 3.125 MG TABLET 6.25 MG PO ×2 (08:42→17:20)
[2024-08-21] MEDS: FAMOTIDINE INJ 10 MG/ML VIAL 2 ML 20 MG IVP ×2 (08:43→21:50)
[2024-08-21] MEDS: SENNA TABLET 1 TAB PO (08:43)
[2024-08-21] MEDS: LOSARTAN POTASSIUM 25 MG TABLET PO (08:43)
[2024-08-21] MEDS: ENOXAPARIN SOD INJ 40 MG/0.4 ML SYRINGE SC (08:44)
--- NOTE | 2024-08-21 14:21 | PC.SS ---
Rounding note: patient is pending surgery likely to happen next week on Saturday 08/26.
--- NOTE | 2024-08-21 15:53 | ESPR_ITS ---
Documentation for date of: 08/21/24 Subjective Subjective Interval history: Patient was seen and examined at the bedside this morning. Patient had no acute overnight events reported. Patient asked for surgical intervention and duration and he was explained that he has to wait until a week for possible surgery on Monday. Will continue hold aspirin Plavix. Hemoglobin remained stable. Vitals were stable this morning with mild bradycardia. Labs showed hemoglobin 12.6. Chemistry panel was unremarkable. PSA came 7.21. We will continue with current management. All labs and orders were reviewed. Exam Vital Signs Temp Pulse Resp BP Pulse Ox O2 Del Method O2 Flow Rate 97.7 F 56 L 20 120/64 98 Room Air 2 08/21/24 12:00 08/21/24 12:00 08/21/24 12:08/21/24 12:08/21/24 12:08/21/24 12:08/19/24 17:50 Narrative Exam General Appearance: Alert & Oriented X3, well-nourished male who is lying in bed in no acute distress HEENT: Skull symmetrical and atraumatic. Conjunctivae pink and moist. Pupils equal, round, reactive to light and accommodation (PERRL). External ear without lesion or discharge. Straight, nares patient, mucosa pink, no discharge. No thyroid nodule appreciated. No cervical lymphadenopathy. Cardio: Normal Rate and Rhythm with S1 and S2 heart sounds. Possible holoystolic murmur noted. . No bruits on carotid auscultation. No peripheral edema or cyanosis. Lungs: Symmetric with good expansion. Chest and back non-tender. Breath sounds vesicular without crackles, wheezing or rhonchi Abdomen: mild tenderness, Non-distended, Normal Reactive Bowel Sounds, hyperresonant on right lower and upper quadrant Neuro: Alert, cooperative, oriented to person, place, and time. Speech clear. CN grossly intact. Upper motor strength 4/5 and Lower motor strength 5/5. Sensation intact. Left facial drop noted near nasol-labial, improved. Objective Labs 08/21/24 05:05 08/21/24 05:05 Labs: Laboratory Results - last 24 hr 08/21/24 05:05 WBC 4.9 RBC 4.24 L Hgb 12.6 L Hct 37.4 L MCV 88 MCH 29.7 MCHC 33.7 RDW Std Deviation 43.0 Plt Count 175 Neut % (Auto) 61 Lymph % (Auto) 26 [place] % (Auto) 10 Eos % (Auto) 3 Baso % (Auto) 0 Neut # (Auto) 3.0 Lymph # (Auto) 1.3 [place] # (Auto) 0.5 Eos # (Auto) 0.1 Baso # (Auto) 0.0 Immature Gran # (Auto) 0.02 H Absolute Nucleated RBC 0.00 Immature Gran % 0 Nucleated RBC % 0 Sodium 140 Potassium 4.3 Chloride 104 Carbon Dioxide 28.4 Anion Gap 8 BUN 7 L Creatinine 0.8 Estim Creat Clear Calc 79.5 eGFR > 60 BUN/Creatinine Ratio 9 L Glucose 88 Calculated Osmolality 276 Calcium 9.3 Corrected Calcium 9.5 Phosphorus 3.8 Magnesium 2.1 Total Bilirubin 1.0 AST 11 ALT 7 L Alkaline Phosphatase 77 Total Protein 6.3 Albumin 3.8 Globulin 2.5 Albumin/Globulin Ratio 1.5 Prostate Specific Ag 7.21 H Quality Measures Quality Measures stroke Suspected type of Stroke: TIA Last known well (date): 08/16/24 Last known well (time): 20:00 Tenecteplase given: Reason(s) Tenecteplase not given: Acute bleeding diathesis (recent GI bleeding and is being worked up as an outpatient for colon CA per teleneurology) not given Rehab services: PT evaluation ordered VTE Prophylaxis: not ordered Antithrombotic by day 2:: not indicated (describe) Statin ordered: <75 y/o high intensity dose Anticoagulation ordered for A-fib or flutter (current or hx): not indicated Advance care planning discussed with:: patient Assessment & Plan Assessment Current Active Medications: Generic Name Dose Route Start Last Admin Trade Name Niko PRN Reason Stop Dose Admin Acetaminophen 650 mg 08/19/24 07:52 Acetaminophen 325 Mg Tablet PO 09/15/24 23:15 Q6H PRN Fever >100.3 or pain 1-3 Hydrocodone Bitart/Acetaminophen 1 tab 08/16/24 23:16 Hydrocodone/Apap 5/325 Tablet PO 08/21/24 23:15 Q4HR PRN PAIN SCALE 4-10(Mod-Sev Albuterol/Ipratropium 3 ml 08/16/24 23:14 Albuterol/Ipratropium (Duoneb) Rt Shelly 3 Ml Nebu INH 09/15/24 23:13 Q2HR PRN SHORTNESS OF BREATH OR WHEEZE Aspirin 81 mg 08/19/24 10:00 08/20/24 10:46 Aspirin Ec 81 Mg Tabec PO 09/18/24 09:59 Not Given QDAY RAGINI Atorvastatin Calcium 40 mg 08/18/24 21:00 08/20/24 23:56 Atorvastatin Calcium 20 Mg Tablet PO 09/17/24 20:59 40 mg HS RAGINI Administration Carvedilol 6.25 mg 08/20/24 08:00 08/21/24 08:42 Carvedilol 3.125 Mg Tablet PO 09/19/24 07:59 6.25 mg BIDWM RAGINI Administration Clopidogrel Bisulfate 75 mg 08/21/24 09:00 Clopidogrel Bisulfate 75 Mg Tablet PO 09/20/24 08:59 QDAY RAGINI Enoxaparin Sodium 40 mg 08/20/24 11:45 08/21/24 08:44 Enoxaparin Sod Inj 40 Mg/0.4 Ml Syringe SC 09/03/24 11:44 40 mg QDAY RAGINI Administration Famotidine 20 mg 08/17/24 09:00 08/21/24 08:43 Famotidine Inj 10 Mg/Ml Vial 2 Ml IVP 09/16/24 08:59 20 mg Q12HR RAGINI Administration Labetalol HCl 10 mg 08/16/24 23:23 Labetalol Inj 5 Mg/Ml Vial 20 Ml IVP 09/15/24 23:29 Q10MIN PRN SBP > 220 Losartan Potassium 25 mg 08/20/24 09:00 08/21/24 08:43 Losartan Potassium 25 Mg Tablet PO 09/19/24 08:59 25 mg QDAY RAGINI Administration Ondansetron HCl 4 mg 08/16/24 23:16 Ondansetron Inj 2 Mg/Ml Inj 2 Ml IV 09/15/24 23:15 Q6H PRN NAUSEA OR VOMITING Protocol Sennosides 1 tab 08/17/24 09:00 08/21/24 08:43 Senna Tablet PO 09/16/24 08:59 1 tab QDAY RAGINI Administration Protocol Plan This patient is an 84-year-old male with past medical history significant for essential hypertension, hyperlipidemia, chronic stroke, history of prostate cancer s/p radiation September 2012 in remission and sigmoid colon mass for investigation presenting today with a chief complaint of left face tingling and left arm tingling. Patient will be admitted for workup and management of stroke rule out. History of prostate cancer. #Sigmoid colon mass for investigation s/p biopsy #GI bleed #History of prostate cancer s/p radiation September 2012 in remission Patient says for the past few months he has bright red blood upon wiping every few days. Patient also had an abdomen/pelvis CT last year April which showed a sigmoid mass suspicious for neoplasm and colonoscopy on 08/19/2024 showed an partially obstructing mass. F/U with PSA in AM. Plan: -Plan for surgery for Tuesday, August 27, 2024-->remain hospitalized. -HOLDING aspirin and plavix -PSA AM ?GI, Dr. Orozco consulted. Appreciate recommendations. -general surgery consulted, appreciate recommendations, Dr. Jade. #Acute R parietal lobe infarct #History of right parietal infarct 05/12/2024 Patient presented with left facial numbness and left arm tingling. On exam patient had mild slurred speech, left facial tingling and left arm tingling. Today, improved as compared to admission NIHSS score of 2. Previous echo on file showed negative PFO and ASD (05/12/2024). This is patient's third stroke -Head CT negative for acute hemorrhage, mass effect or midline shift. Head/neck CTA negative for significant neck arterial stenosis and cerebral large vessel arterial occlusions. MRI brain 10 mm acute infarct right parietal lobe Plan: - Plavix 75mg PO qd and Aspirin 81 mg Qday-HOLDING tumor resection in colon - PT/OT referrals placed--> , pending major surgey now - PRN Acetaminophen 650mg to avoid hyperthermia - Labetalol 10 Mg IV Q 10 minutes as needed for SBP >220, restarted home medication, out of permissive HTN window home meds resumed - Dr Diop consulted, pending in-house Neurology recommendations #Essential hypertension #Hyperlipidemia On admission BP 158/79. Home medication losartan 25 Mg p.o. daily, Coreg 6.25 Mg p.o. twice daily and amlodipine 10 Mg p.o. daily Home medication atorvastatin 80 Mg p.o. every afternoon Plan: ? Resumed home medication atorvastatin 40 Mg p.o. every afternoon -Resumed Losartan 25 mg QDay -Resume Coreg 6.25 mg PO -Holding amlodipine 10 mg HS -out of window for permissive for permissive HTN #Elevated PSA -PSA 7.21 Plan: -Outpatient follow up Health maintenance: Disposition: Patient will remained hospitalized for tumor resection at colon site for partially obstructing tumor on 08/27/2024 Diet: clear liquids, advanced diet as tolerated. Lines: pIVs, tele box GI Prophylaxis: Famotidine 20 mg IV BID Thrombo Prophylaxis: SCDs/Levonox Code status: FULL CODE Patient was seen and discussed with attending physician, Dr. Nori Millan MD, PGY 2 Attending Provider Attestation/Addendum I have examined the patient, reviewed labs and imaging findings, discussed the case with the resident(s), and reviewed entered orders. I agree with the plan of care as outlined in this note, with these additional summaries/recommendations: Patient seen at bedside. No acute overnight events. Patient diagnosed with acute CVA. MRI revealed 10 mm acute infract right parietal lobe. Echocardiogram with negative bubble study. Continue statin therapy. Holding anticoagulation as patient was found to have GI bleed. Colonoscopy revealed likely malignant partially obstructing tumor in the sigmoid colon. CEA level within normal limits 1.4. PSA 7.21. General surgery was consulted. Given that patient had recently received Plavix surgery will be deferred to Monday. Patient updated on the plan and in agreement. Repeat hematology and chemistry panel in AM. Dr. Julio
--- NOTE | 2024-08-21 19:29 | PD.VPROG1 ---
Telemedicine visit statement This visit was conducted with the use of phone was obtained on 08/21/24. Documentation for date of: 08/21/24 Subjective Subjective Interval history: Patient is in telemetry. His left facial droop and left UE weakness are resolving, able to ambulate without any assistance. No new symptoms reported. Tolerating oral diet well. Slept well overnight. Virtual exam Vital Signs Temp Pulse Resp BP Pulse Ox O2 Del Method O2 Flow Rate 98.6 F 56 L 16 160/77 H 95 Room Air 2 08/21/24 16:00 08/21/24 17:20 08/21/24 16:00 08/21/24 17:20 08/21/24 16:00 08/21/24 16:00 08/19/24 17:50 Objective Labs 08/21/24 05:05 08/21/24 05:05 Labs: Laboratory Results - last 24 hr 08/21/24 05:05 WBC 4.9 RBC 4.24 L Hgb 12.6 L Hct 37.4 L MCV 88 MCH 29.7 MCHC 33.7 RDW Std Deviation 43.0 Plt Count 175 Neut % (Auto) 61 Lymph % (Auto) 26 [place] % (Auto) 10 Eos % (Auto) 3 Baso % (Auto) 0 Neut # (Auto) 3.0 Lymph # (Auto) 1.3 [place] # (Auto) 0.5 Eos # (Auto) 0.1 Baso # (Auto) 0.0 Immature Gran # (Auto) 0.02 H Absolute Nucleated RBC 0.00 Immature Gran % 0 Nucleated RBC % 0 Sodium 140 Potassium 4.3 Chloride 104 Carbon Dioxide 28.4 Anion Gap 8 BUN 7 L Creatinine 0.8 Estim Creat Clear Calc 79.5 eGFR > 60 BUN/Creatinine Ratio 9 L Glucose 88 Calculated Osmolality 276 Calcium 9.3 Corrected Calcium 9.5 Phosphorus 3.8 Magnesium 2.1 Total Bilirubin 1.0 AST 11 ALT 7 L Alkaline Phosphatase 77 Total Protein 6.3 Albumin 3.8 Globulin 2.5 Albumin/Globulin Ratio 1.5 Prostate Specific Ag 7.21 H Assessment & Plan Assessment (1) Acute CVA (cerebrovascular accident): mri Brain showed acute infarct in the right parietal area. improving in deficit: left facial and UE weakness Continue with BP control and statin hold off on antiplatelet agents because of GI bleeding (2) Essential (primary) hypertension: continue Losartan and Carvedilol (3) Hyperlipidemia: continue with statin (4) Malignant neoplasm of sigmoid colon: colonoscopy : showed hemorrhoids, divericulitis and malignant sigmoid colon, path pending\ Oncology evaluation pending CEA : 1.4, WNL
--- NOTE | 2024-08-21 21:06 | PD.IMPROG ---
Documentation for date of: 08/21/24 Subjective Subjective Interval history: Left colonic mass biopsy is an adenocarcinoma Exam Vital Signs Temp Pulse Resp BP Pulse Ox O2 Del Method O2 Flow Rate 98.6 F 56 L 16 160/77 H 95 Room Air 2 08/21/24 16:00 08/21/24 17:20 08/21/24 16:00 08/21/24 17:20 08/21/24 16:00 08/21/24 16:00 08/19/24 17:50 Objective Labs 08/21/24 05:05 08/21/24 05:05 Labs: Laboratory Results - last 24 hr 08/21/24 05:05 WBC 4.9 RBC 4.24 L Hgb 12.6 L Hct 37.4 L MCV 88 MCH 29.7 MCHC 33.7 RDW Std Deviation 43.0 Plt Count 175 Neut % (Auto) 61 Lymph % (Auto) 26 [place] % (Auto) 10 Eos % (Auto) 3 Baso % (Auto) 0 Neut # (Auto) 3.0 Lymph # (Auto) 1.3 [place] # (Auto) 0.5 Eos # (Auto) 0.1 Baso # (Auto) 0.0 Immature Gran # (Auto) 0.02 H Absolute Nucleated RBC 0.00 Immature Gran % 0 Nucleated RBC % 0 Sodium 140 Potassium 4.3 Chloride 104 Carbon Dioxide 28.4 Anion Gap 8 BUN 7 L Creatinine 0.8 Estim Creat Clear Calc 79.5 eGFR > 60 BUN/Creatinine Ratio 9 L Glucose 88 Calculated Osmolality 276 Calcium 9.3 Corrected Calcium 9.5 Phosphorus 3.8 Magnesium 2.1 Total Bilirubin 1.0 AST 11 ALT 7 L Alkaline Phosphatase 77 Total Protein 6.3 Albumin 3.8 Globulin 2.5 Albumin/Globulin Ratio 1.5 Prostate Specific Ag 7.21 H Impressions Impression: # Obstructing sigmoid adenocarcinoma Surgical intervention Appropriate Assessment & Plan A&P Narrative # Sigmoid colon mass Case discussed with internal medicine team Clear liquid diet GoLytely prep Colonoscopy tentatively scheduled for tomorrow morning if the patient is clear CEA level Other medical problems include # 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
[2024-08-21] MEDS: ATORVASTATIN CALCIUM 20 MG TABLET 40 MG PO (21:49)
[2024-08-22] VITALS (12 sets, daily range): BP systolic 122–141; BP diastolic 62–72; PULSE 52–86; RESP 15–96; TEMP 36.3–36.9; O2SAT 91–97; BMI 14.3
[2024-08-22] MEDS: carVEDILOL 3.125 MG TABLET 6.25 MG PO ×2 (08:06→16:43)
[2024-08-22] MEDS: ENOXAPARIN SOD INJ 40 MG/0.4 ML SYRINGE SC (09:11)
[2024-08-22] MEDS: FAMOTIDINE INJ 10 MG/ML VIAL 2 ML 20 MG IVP ×2 (09:12→21:05)
[2024-08-22] MEDS: LOSARTAN POTASSIUM 25 MG TABLET PO (09:12)
[2024-08-22] MEDS: SENNA TABLET 1 TAB PO (09:12)
--- NOTE | 2024-08-22 10:44 | PD.RESPRO ---
Documentation for date of: 08/22/24 Subjective Subjective Interval history: Patient was seen and examined at the bedside this morning. Patient's daughter was also present at the bedside. Patient reported that he had a bowel movement with blood however it was not celia blood and was clotted with stool. No acute overnight events were reported patient slept well and has been waiting for his surgery. Vitals were stable this morning and he was saturating well on room air. Surgeon recommended that he might do surgery possibly on Monday or Monday therefore we ordered labs for Monday morning. Currently holding aspirin Plavix for surgery. Continuing losartan for blood pressure management. Blood sugar remains controlled. All labs and orders were reviewed. Exam Vital Signs Temp Pulse Resp BP Pulse Ox O2 Del Method O2 Flow Rate 97.4 F 63 20 141/67 H 96 Room Air 2 08/22/24 08:00 08/22/24 09:12 08/22/24 08:00 08/22/24 09:12 08/22/24 08:00 08/22/24 08:00 08/19/24 17:50 Narrative Exam General Appearance: Alert & Oriented X3, well-nourished male who is lying in bed in no acute distress HEENT: Skull symmetrical and atraumatic. Conjunctivae pink and moist. Pupils equal, round, reactive to light and accommodation (PERRL). External ear without lesion or discharge. Straight, nares patient, mucosa pink, no discharge. No thyroid nodule appreciated. No cervical lymphadenopathy. Cardio: Normal Rate and Rhythm with S1 and S2 heart sounds. Possible holoystolic murmur noted. . No bruits on carotid auscultation. No peripheral edema or cyanosis. Lungs: Symmetric with good expansion. Chest and back non-tender. Breath sounds vesicular without crackles, wheezing or rhonchi Abdomen: mild tenderness, Non-distended, Normal Reactive Bowel Sounds, hyperresonant on right lower and upper quadrant Neuro: Alert, cooperative, oriented to person, place, and time. Speech clear. CN grossly intact. Upper motor strength 4/5 and Lower motor strength 5/5. Sensation intact. Left facial drop noted near nasol-labial, improved. Objective Labs 08/21/24 05:05 08/21/24 05:05 Quality Measures Quality Measures stroke Suspected type of Stroke: TIA Last known well (date): 08/16/24 Last known well (time): 20:00 Tenecteplase given: Reason(s) Tenecteplase not given: Acute bleeding diathesis (recent GI bleeding and is being worked up as an outpatient for colon CA per teleneurology) not given Rehab services: PT evaluation ordered VTE Prophylaxis: not indicated Antithrombotic by day 2:: not indicated (describe) Statin ordered: <75 y/o high intensity dose Anticoagulation ordered for A-fib or flutter (current or hx): ordered Advance care planning discussed with:: other Assessment & Plan Assessment Current Active Medications: Generic Name Dose Route Start Last Admin Trade Name Freq PRN Reason Stop Dose Admin Acetaminophen 650 mg 08/19/24 07:52 Acetaminophen 325 Mg Tablet PO 09/15/24 23:15 Q6H PRN Fever >100.3 or pain 1-3 Albuterol/Ipratropium 3 ml 08/16/24 23:14 Albuterol/Ipratropium (Duoneb) Rt Shelly 3 Ml Nebu INH 09/15/24 23:13 Q2HR PRN SHORTNESS OF BREATH OR WHEEZE Aspirin 81 mg 08/19/24 10:00 08/20/24 10:46 Aspirin Ec 81 Mg Tabec PO 09/18/24 09:59 Not Given QDAY RAGINI Atorvastatin Calcium 40 mg 08/18/24 21:00 08/21/24 21:49 Atorvastatin Calcium 20 Mg Tablet PO 09/17/24 20:59 40 mg HS RAGINI Administration Carvedilol 6.25 mg 08/20/24 08:00 08/22/24 08:06 Carvedilol 3.125 Mg Tablet PO 09/19/24 07:59 6.25 mg BIDWM RAGINI Administration Clopidogrel Bisulfate 75 mg 08/21/24 09:00 Clopidogrel Bisulfate 75 Mg Tablet PO 09/20/24 08:59 QDAY RAGINI Enoxaparin Sodium 40 mg 08/20/24 11:45 08/22/24 09:11 Enoxaparin Sod Inj 40 Mg/0.4 Ml Syringe SC 09/03/24 11:44 40 mg QDAY RAGINI Administration Famotidine 20 mg 08/17/24 09:00 08/22/24 09:12 Famotidine Inj 10 Mg/Ml Vial 2 Ml IVP 09/16/24 08:59 20 mg Q12HR RAGINI Administration Labetalol HCl 10 mg 08/16/24 23:23 Labetalol Inj 5 Mg/Ml Vial 20 Ml IVP 09/15/24 23:29 Q10MIN PRN SBP > 220 Losartan Potassium 25 mg 08/20/24 09:00 08/22/24 09:12 Losartan Potassium 25 Mg Tablet PO 09/19/24 08:59 25 mg QDAY RAGINI Administration Ondansetron HCl 4 mg 08/16/24 23:16 Ondansetron Inj 2 Mg/Ml Inj 2 Ml IV 09/15/24 23:15 Q6H PRN NAUSEA OR VOMITING Protocol Sennosides 1 tab 08/17/24 09:00 08/22/24 09:12 Senna Tablet PO 09/16/24 08:59 1 tab QDAY RAGINI Administration Protocol Plan This patient is an 84-year-old male with past medical history significant for essential hypertension, hyperlipidemia, chronic stroke, history of prostate cancer s/p radiation September 2012 in remission and sigmoid colon mass for investigation presenting today with a chief complaint of left face tingling and left arm tingling. Patient will be admitted for workup and management of stroke rule out. History of prostate cancer. #Sigmoid colon mass for investigation s/p biopsy #GI bleed Patient says for the past few months he has bright red blood upon wiping every few days. Patient also had an abdomen/pelvis CT last year April which showed a sigmoid mass suspicious for neoplasm and colonoscopy on 08/19/2024 showed an partially obstructing mass. F/U with PSA in AM. Plan: -Anticipated plan for surgery on Monday, August 24 or per surgeon recommendations -Order a.m. labs for Monday -HOLDING aspirin and plavix -PSA AM ?GI, Dr. Orozco consulted. Appreciate recommendations. -general surgery consulted, appreciate recommendations, Dr. Jade. #Acute R parietal lobe infarct #History of right parietal infarct 05/12/2024 Patient presented with left facial numbness and left arm tingling. On exam patient had mild slurred speech, left facial tingling and left arm tingling. Today, improved as compared to admission NIHSS score of 2. Previous echo on file showed negative PFO and ASD (05/12/2024). This is patient's third stroke -Head CT negative for acute hemorrhage, mass effect or midline shift. Head/neck CTA negative for significant neck arterial stenosis and cerebral large vessel arterial occlusions. MRI brain 10 mm acute infarct right parietal lobe Plan: - Plavix 75mg PO qd and Aspirin 81 mg Qday-HOLDING tumor resection in colon - PT/OT referrals placed--> , pending major surgey now - PRN Acetaminophen 650mg to avoid hyperthermia - Labetalol 10 Mg IV Q 10 minutes as needed for SBP >220, restarted home medication, out of permissive HTN window home meds resumed - Dr Diop consulted, pending in-house Neurology recommendations #Essential hypertension #Hyperlipidemia On admission BP 158/79. Home medication losartan 25 Mg p.o. daily, Coreg 6.25 Mg p.o. twice daily and amlodipine 10 Mg p.o. daily Home medication atorvastatin 80 Mg p.o. every afternoon Plan: ? Resumed home medication atorvastatin 40 Mg p.o. every afternoon -Resumed Losartan 25 mg QDay -Resume Coreg 6.25 mg PO -Holding amlodipine 10 mg HS -out of window for permissive for permissive HTN #Elevated PSA -PSA 7.21 Plan: -Outpatient follow up #History of prostate cancer s/p radiation September 2012 in remission Health maintenance: Disposition: Patient will remained hospitalized for tumor resection at colon site for partially obstructing tumor on 08/24/2024. Diet: clear liquids, advanced diet as tolerated. Lines: pIVs, tele box GI Prophylaxis: Famotidine 20 mg IV BID Thrombo Prophylaxis: SCDs/Levonox Code status: FULL CODE Patient was seen and discussed with attending physician, Dr. Nori Millan MD, PGY 2 Attending Provider Attestation/Addendum I have examined the patient, reviewed labs and imaging findings, discussed the case with the resident(s), and reviewed entered orders. I agree with the plan of care as outlined in this note, with these additional summaries/recommendations: Patient seen at bedside. No acute overnight events. Patient seen resting comfortably in hospital bed. Patient diagnosed with acute CVA. MRI revealed 10 mm acute infract right parietal lobe. Echocardiogram with negative bubble study. Continue statin therapy. Holding anticoagulation as patient was found to have GI bleed. Colonoscopy revealed likely malignant partially obstructing tumor in the sigmoid colon. CEA level within normal limits 1.4. PSA 7.21. General surgery was consulted. Given that patient had recently received Plavix surgery will be deferred to this weekend or early next week. Patient updated on the plan and in agreement. Repeat hematology and chemistry panel in AM. Dr. Julio
--- NOTE | 2024-08-22 14:49 | PD.RESPRO ---
Documentation for date of: 08/22/24 Exam Vital Signs Temp Pulse Resp BP Pulse Ox O2 Del Method O2 Flow Rate 97.6 F 86 21 H 130/72 95 Room Air 2 08/22/24 12:00 08/22/24 12:00 08/22/24 12:00 08/22/24 12:00 08/22/24 12:00 08/22/24 12:00 08/19/24 17:50 Objective Labs 08/21/24 05:05 08/21/24 05:05 Quality Measures Quality Measures stroke Suspected type of Stroke: TIA Last known well (date): 08/16/24 Last known well (time): 20:00 Tenecteplase given: Reason(s) Tenecteplase not given: Acute bleeding diathesis (recent GI bleeding and is being worked up as an outpatient for colon CA per teleneurology) not given Assessment & Plan Assessment Current Active Medications: Generic Name Dose Route Start Last Admin Trade Name Freq PRN Reason Stop Dose Admin Acetaminophen 650 mg 08/19/24 07:52 Acetaminophen 325 Mg Tablet PO 09/15/24 23:15 Q6H PRN Fever >100.3 or pain 1-3 Albuterol/Ipratropium 3 ml 08/16/24 23:14 Albuterol/Ipratropium (Duoneb) Rt Shelly 3 Ml Nebu INH 09/15/24 23:13 Q2HR PRN SHORTNESS OF BREATH OR WHEEZE Aspirin 81 mg 08/19/24 10:00 08/20/24 10:46 Aspirin Ec 81 Mg Tabec PO 09/18/24 09:59 Not Given QDAY RAGINI Atorvastatin Calcium 40 mg 08/18/24 21:00 08/21/24 21:49 Atorvastatin Calcium 20 Mg Tablet PO 09/17/24 20:59 40 mg HS RAGINI Administration Carvedilol 6.25 mg 08/20/24 08:00 08/22/24 08:06 Carvedilol 3.125 Mg Tablet PO 09/19/24 07:59 6.25 mg BIDWM RAGINI Administration Clopidogrel Bisulfate 75 mg 08/21/24 09:00 Clopidogrel Bisulfate 75 Mg Tablet PO 09/20/24 08:59 QDAY RAGINI Enoxaparin Sodium 40 mg 08/20/24 11:45 08/22/24 09:11 Enoxaparin Sod Inj 40 Mg/0.4 Ml Syringe SC 09/03/24 11:44 40 mg QDAY RAGINI Administration Famotidine 20 mg 08/17/24 09:00 08/22/24 09:12 Famotidine Inj 10 Mg/Ml Vial 2 Ml IVP 09/16/24 08:59 20 mg Q12HR RAGINI Administration Labetalol HCl 10 mg 08/16/24 23:23 Labetalol Inj 5 Mg/Ml Vial 20 Ml IVP 09/15/24 23:29 Q10MIN PRN SBP > 220 Losartan Potassium 25 mg 08/20/24 09:00 08/22/24 09:12 Losartan Potassium 25 Mg Tablet PO 09/19/24 08:59 25 mg QDAY RAGINI Administration Ondansetron HCl 4 mg 08/16/24 23:16 Ondansetron Inj 2 Mg/Ml Inj 2 Ml IV 09/15/24 23:15 Q6H PRN NAUSEA OR VOMITING Protocol Sennosides 1 tab 08/17/24 09:00 08/22/24 09:12 Senna Tablet PO 09/16/24 08:59 1 tab QDAY RAGINI Administration Protocol
--- NOTE | 2024-08-22 20:51 | PD.IMPROG ---
Documentation for date of: 08/22/24 Subjective Subjective Interval history: Some bleeding per rectum aspirin and Plavix on hold hopefully possible surgery on Monday Exam Vital Signs Temp Pulse Resp BP Pulse Ox O2 Del Method O2 Flow Rate 97.4 F 59 L 20 136/63 H 97 Room Air 2 08/22/24 16:00 08/22/24 16:43 08/22/24 16:00 08/22/24 16:43 08/22/24 16:00 08/22/24 16:00 08/19/24 17:50 Objective Labs 08/21/24 05:05 08/21/24 05:05 Impressions Impression: # Obstructing sigmoid colon adenocarcinoma patient is off the aspirin and Plavix waiting for surgical intervention Assessment & Plan A&P Narrative # Sigmoid colon mass Case discussed with internal medicine team Clear liquid diet GoLytely prep Colonoscopy tentatively scheduled for tomorrow morning if the patient is clear CEA level Other medical problems include # 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
[2024-08-22] MEDS: ATORVASTATIN CALCIUM 20 MG TABLET 40 MG PO (21:05)
[2024-08-23] VITALS (16 sets, daily range): BP systolic 105–156; BP diastolic 62–73; PULSE 55–71; RESP 17–20; TEMP 36.3–36.8; O2SAT 93–96; BMI 31.6
[2024-08-23] MEDS: carVEDILOL 3.125 MG TABLET 6.25 MG PO ×2 (07:42→16:39)
--- NOTE | 2024-08-23 07:56 | PD.NEUROPROG ---
Documentation for date of: 08/22/24 Subjective Subjective Interval history: Patient was seen in [facility] today, continues to improve in his left facial and UE weakness. No headache or dz reported, tolerating oral diet well. Exam - Neurology Vital Signs Temp Pulse Resp BP Pulse Ox O2 Del Method O2 Flow Rate 98.3 F 63 19 134/67 H 93 L Room Air 2 08/23/24 07:49 08/23/24 07:49 08/23/24 07:49 08/23/24 07:49 08/23/24 07:49 08/23/24 07:49 08/19/24 17:50 Narrative Exam GENERAL APPEARANCE: Well hydrated, well-nourished in no acute distress. HEENT: Normocephalic, atraumatic, extraocular movements intact. Pupils: Equal reacting to light and accommodation NECK: Supple, no JVD or bruits. CARDIOVASULAR: Heart: S1, S2 heard, regular without S3-S4 or murmur no rubs or gallops. LUNGS/CHEST: Clear to auscultation bilaterally. No rails, rhonchi, or wheezing. Normal inspection. ABDOMEN: Soft, nontender, with normal bowel sounds. No pulsatile masses. No rebound, rigidity, or guarding. Normal inspection and palpation. EXTREMITIES: Normal inspection and palpation. No edema, clubbing or cyanosis. SKIN: Warm and dry without rashes. Normal inspection. MUSCULOSKELETAL: No cervical, thoracic, lumbar or midline bony tenderness. Normal inspection. NEURO: Alert, awake and oriented x3. Cranial nerves: II through XII grossly intact with exception of improving left facial weakness of upper motor neuron type. Speech and language: Normal with no dysarthria or dysphasia. Motor system: Tone and bulk: Normal: Strength: 5 out of 5 in all 4 extremities; mild left pronator drift noted. Deep tendon reflexes: 2+ bilaterally symmetrical. Plantar reflex: Downgoing bilaterally. Sensory system: Intact to all modalities of sensation bilaterally. Coordination: Intact to [id number] and [id number] test bilaterally. No ataxia, but mild dysmetria and dysdiadochokinesia noted in the left upper extremity. No intention tremors noted. Gait: Normal. Toe, heel, tandem walk all are normal. Romberg: Negative. No signs of meningeal irritation noted. PSYCHIATRIC: Normal mood and affect. Objective Labs 08/21/24 05:05 08/21/24 05:05 Assessment & Plan Assessment and plan (1) Acute CVA (cerebrovascular accident): Status: Acute Assessment and plan: mri Brain showed acute infarct in the right parietal area. improving in deficit: left facial and UE weakness Continue with BP control and statin hold off on antiplatelet agents because of GI bleeding (2) Essential (primary) hypertension: Status: Acute Assessment and plan: continue Losartan and Carvedilol (3) Hyperlipidemia: Status: Acute Assessment and plan: continue with statin (4) Malignant neoplasm of sigmoid colon: Status: Acute Assessment and plan: colonoscopy : showed hemorrhoids, divericulitis and malignant sigmoid colon, path pending\ CEA: wnl going for sigmoid colectomy on Mon or Monday Patient has been off of antiplatelets since admission.
[2024-08-23] MEDS: ENOXAPARIN SOD INJ 40 MG/0.4 ML SYRINGE SC (09:18)
[2024-08-23] MEDS: FAMOTIDINE INJ 10 MG/ML VIAL 2 ML 20 MG IVP ×2 (09:18→21:06)
[2024-08-23] MEDS: SENNA TABLET 1 TAB PO (09:19)
[2024-08-23] MEDS: LOSARTAN POTASSIUM 25 MG TABLET PO (09:19)
--- NOTE | 2024-08-23 14:47 | PC.SS ---
Rounding note: pending surgery possible over the weekend or early next week. Patient also pending PT eval.
--- NOTE | 2024-08-23 15:34 | ESPR_ITS ---
Documentation for date of: 08/23/24 Subjective Subjective Interval history: Patient was seen and examined at the bedside this morning. Patient reported that he is still passing bowel movements with black stool. Patient did not had active concerns. No acute overnight events were reported. Vitals showed mildly elevated blood pressure however saturating well on room air. PT evaluation was ordered to encourage ambulation as patient had a stroke during hospital stay. Labs were ordered for Monday morning. Patient's questions and concerns were addressed. PT evaluation stated that we need home health occupational therapy to address his limitations with fine motor skills in left upper extremity post CVA. Exam Vital Signs Temp Pulse Resp BP Pulse Ox O2 Del Method O2 Flow Rate 98.3 F 63 20 145/72 H 94 L Room Air 2 08/23/24 11:52 08/23/24 12:00 08/23/24 11:52 08/23/24 11:52 08/23/24 11:52 08/23/24 11:52 08/19/24 17:50 Narrative Exam General Appearance: Alert & Oriented X3, well-nourished male who is lying in bed in no acute distress HEENT: Skull symmetrical and atraumatic. Conjunctivae pink and moist. Pupils equal, round, reactive to light and accommodation (PERRL). External ear without lesion or discharge. Straight, nares patient, mucosa pink, no discharge. No thyroid nodule appreciated. No cervical lymphadenopathy. Cardio: Normal Rate and Rhythm with S1 and S2 heart sounds. Possible holoystolic murmur noted. . No bruits on carotid auscultation. No peripheral edema or cyanosis. Lungs: Symmetric with good expansion. Chest and back non-tender. Breath sounds vesicular without crackles, wheezing or rhonchi Abdomen: mild tenderness, Non-distended, Normal Reactive Bowel Sounds, hyperresonant on right lower and upper quadrant Neuro: Alert, cooperative, oriented to person, place, and time. Speech clear. CN grossly intact. Upper motor strength 4/5 and Lower motor strength 5/5. Sensation intact. Left facial drop noted near nasol-labial, improved. Objective Labs 08/21/24 05:05 08/21/24 05:05 Quality Measures Quality Measures stroke Suspected type of Stroke: TIA Last known well (date): 08/16/24 Last known well (time): 20:00 Tenecteplase given: Reason(s) Tenecteplase not given: Acute bleeding diathesis (recent GI bleeding and is being worked up as an outpatient for colon CA per teleneurology) not given Rehab services: PT evaluation ordered VTE Prophylaxis: not indicated Antithrombotic by day 2:: not indicated (describe) Statin ordered: <75 y/o high intensity dose Anticoagulation ordered for A-fib or flutter (current or hx): not indicated Advance care planning discussed with:: other Assessment & Plan Assessment Current Active Medications: Generic Name Dose Route Start Last Admin Trade Name Freq PRN Reason Stop Dose Admin Acetaminophen 650 mg 08/19/24 07:52 Acetaminophen 325 Mg Tablet PO 09/15/24 23:15 Q6H PRN Fever >100.3 or pain 1-3 Albuterol/Ipratropium 3 ml 08/16/24 23:14 Albuterol/Ipratropium (Duoneb) Rt Shelly 3 Ml Nebu INH 09/15/24 23:13 Q2HR PRN SHORTNESS OF BREATH OR WHEEZE Aspirin 81 mg 08/19/24 10:00 08/20/24 10:46 Aspirin Ec 81 Mg Tabec PO 09/18/24 09:59 Not Given QDAY RAGINI Atorvastatin Calcium 40 mg 08/18/24 21:00 08/22/24 21:05 Atorvastatin Calcium 20 Mg Tablet PO 09/17/24 20:59 40 mg HS RAGINI Administration Carvedilol 6.25 mg 08/20/24 08:00 08/23/24 07:42 Carvedilol 3.125 Mg Tablet PO 09/19/24 07:59 6.25 mg BIDWM RAGINI Administration Clopidogrel Bisulfate 75 mg 08/21/24 09:00 Clopidogrel Bisulfate 75 Mg Tablet PO 09/20/24 08:59 QDAY RAGINI Enoxaparin Sodium 40 mg 08/20/24 11:45 08/23/24 09:18 Enoxaparin Sod Inj 40 Mg/0.4 Ml Syringe SC 09/03/24 11:44 40 mg QDAY RAGINI Administration Famotidine 20 mg 08/17/24 09:00 08/23/24 09:18 Famotidine Inj 10 Mg/Ml Vial 2 Ml IVP 09/16/24 08:59 20 mg Q12HR RAGINI Administration Labetalol HCl 10 mg 08/16/24 23:23 Labetalol Inj 5 Mg/Ml Vial 20 Ml IVP 09/15/24 23:29 Q10MIN PRN SBP > 220 Losartan Potassium 25 mg 08/20/24 09:00 08/23/24 09:19 Losartan Potassium 25 Mg Tablet PO 09/19/24 08:59 25 mg QDAY RAGINI Administration Ondansetron HCl 4 mg 08/16/24 23:16 Ondansetron Inj 2 Mg/Ml Inj 2 Ml IV 09/15/24 23:15 Q6H PRN NAUSEA OR VOMITING Protocol Sennosides 1 tab 08/17/24 09:00 08/23/24 09:19 Senna Tablet PO 09/16/24 08:59 1 tab QDAY RAGINI Administration Protocol Plan This patient is an 84-year-old male with past medical history significant for essential hypertension, hyperlipidemia, chronic stroke, history of prostate cancer s/p radiation September 2012 in remission and sigmoid colon mass for investigation presenting today with a chief complaint of left face tingling and left arm tingling. Patient will be admitted for workup and management of stroke rule out. History of prostate cancer. #Sigmoid colon mass for investigation s/p biopsy #GI bleed Patient says for the past few months he has bright red blood upon wiping every few days. Patient also had an abdomen/pelvis CT last year April which showed a sigmoid mass suspicious for neoplasm and colonoscopy on 08/19/2024 showed an partially obstructing mass. F/U with PSA in AM. Plan: -PT evaluation stated that we need home health occupational therapy to address his limitations with fine motor skills in left upper extremity post CVA. -Anticipated plan for surgery on August 25 or per surgeon recommendations -Order a.m. labs for Monday -HOLDING aspirin and plavix ?GI, Dr. Orozco consulted. Appreciate recommendations. -General surgery consulted, appreciate recommendations, Dr. Jade. #Acute R parietal lobe infarct #History of right parietal infarct 05/12/2024 Patient presented with left facial numbness and left arm tingling. On exam patient had mild slurred speech, left facial tingling and left arm tingling. Today, improved as compared to admission NIHSS score of 2. Previous echo on file showed negative PFO and ASD (05/12/2024). This is patient's third stroke -Head CT negative for acute hemorrhage, mass effect or midline shift. Head/neck CTA negative for significant neck arterial stenosis and cerebral large vessel arterial occlusions. MRI brain 10 mm acute infarct right parietal lobe Plan: - Plavix 75mg PO qd and Aspirin 81 mg Qday-HOLDING tumor resection in colon - PT/OT referrals placed--> , pending major surgey now - PRN Acetaminophen 650mg to avoid hyperthermia - Labetalol 10 Mg IV Q 10 minutes as needed for SBP >220, restarted home medication, out of permissive HTN window home meds resumed - Dr Diop consulted, pending in-house Neurology recommendations #Essential hypertension #Hyperlipidemia On admission BP 158/79. Home medication losartan 25 Mg p.o. daily, Coreg 6.25 Mg p.o. twice daily and amlodipine 10 Mg p.o. daily Home medication atorvastatin 80 Mg p.o. every afternoon Plan: ?Resumed home medication atorvastatin 40 Mg p.o. every afternoon -Resumed Losartan 25 mg QDay -Resume Coreg 6.25 mg PO -Holding amlodipine 10 mg HS -out of window for permissive for permissive HTN #Elevated PSA -PSA 7.21 Plan: -Outpatient follow up #History of prostate cancer s/p radiation September 2012 in remission Health maintenance: Disposition: Patient will remained hospitalized for tumor resection at colon site for partially obstructing tumor on 08/25/2024. Diet: clear liquids, advanced diet as tolerated. Lines: pIVs, tele box GI Prophylaxis: Famotidine 20 mg IV BID Thrombo Prophylaxis: SCDs/Levonox Code status: FULL CODE Patient was seen and discussed with attending physician, Dr. Nori Millan MD, PGY 2 Attending Provider Attestation/Addendum I have examined the patient, reviewed labs and imaging findings, discussed the case with the resident(s), and reviewed entered orders. I agree with the plan of care as outlined in this note, with these additional summaries/recommendations: Patient seen at bedside. No acute overnight events. Patient has no new complaints today although is anxious to have surgery. Patient diagnosed with acute CVA. MRI revealed 10 mm acute infract right parietal lobe. Echocardiogram with negative bubble study. Continue statin therapy. Holding anticoagulation as patient was found to have GI bleed. Colonoscopy revealed likely malignant partially obstructing tumor in the sigmoid colon. CEA level within normal limits 1.4. PSA 7.21. General surgery was consulted. Biopsy results returned from colonoscopy showing INVASIVE ADENOCARCINOMA which is well- differentiated. Given that patient had recently received Plavix surgery will be deferred to this weekend or early next week. Patient updated on the plan and in agreement. Repeat hematology and chemistry panel in AM. Dr. Julio
--- NOTE | 2024-08-23 16:02 | PC.PT ---
PT eval received. Patient was evaluated on 08/19/24 and is xI. Will cancel PT evaluation.
--- NOTE | 2024-08-23 20:17 | PD.IMPROG ---
Documentation for date of: 08/23/24 Subjective Subjective Interval history: Patient evaluated Hemoglobin 12.6 Patient has been off the Plavix and aspirin now almost 5 days waiting for surgical intervention Exam Vital Signs Temp Pulse Resp BP Pulse Ox O2 Del Method O2 Flow Rate 97.3 F 57 L 20 156/73 H 94 L Room Air 2 08/23/24 15:59 08/23/24 16:39 08/23/24 15:59 08/23/24 16:39 08/23/24 15:59 08/23/24 15:59 08/19/24 17:50 Objective Labs 08/21/24 05:05 08/21/24 05:05 Impressions Impression: Obstructing well-differentiated adenocarcinoma of the sigmoid colon continue current management# Assessment & Plan A&P Narrative # Sigmoid colon mass Case discussed with internal medicine team Clear liquid diet GoLytely prep Colonoscopy tentatively scheduled for tomorrow morning if the patient is clear CEA level Other medical problems include # 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
[2024-08-23] MEDS: ATORVASTATIN CALCIUM 20 MG TABLET 40 MG PO (21:07)
--- NOTE | 2024-08-23 23:00 | PD.VPROG1 ---
Telemedicine visit statement This visit was conducted with the use of phone was obtained on 08/23/24 at 2300. Documentation for date of: 08/23/24 Subjective Subjective Interval history: Patient is in medtelemetry. His left facial droop and left UE weakness are resolving, able to ambulate without any assistance. No new symptoms reported. Tolerating oral diet well. Slept well overnight. Virtual exam Vital Signs Temp Pulse Resp BP Pulse Ox O2 Del Method O2 Flow Rate 97.8 F 71 17 128/64 96 Room Air 2 08/23/24 20:00 08/23/24 20:00 08/23/24 20:00 08/23/24 20:00 08/23/24 20:00 08/23/24 20:00 08/23/24 20:00 Objective Labs 08/21/24 05:05 08/21/24 05:05 Assessment & Plan Assessment (1) Acute CVA (cerebrovascular accident): mri Brain showed acute infarct in the right parietal area. improving in deficit: left facial and UE weakness Continue with BP control and statin hold off on antiplatelet agents because of GI bleeding (2) Essential (primary) hypertension: continue Losartan and Carvedilol (3) Hyperlipidemia: continue with statin (4) Malignant neoplasm of sigmoid colon: colonoscopy : showed hemorrhoids, divericulitis and malignant sigmoid colon going for sigmoid colectomy. CEA : 1.4, WNL
[2024-08-24] VITALS (15 sets, daily range): BP systolic 127–158; BP diastolic 59–84; PULSE 40–74; RESP 15–19; TEMP 36.3–37.1; O2SAT 95–99; BMI 31.4
[2024-08-24] MEDS: carVEDILOL 3.125 MG TABLET 6.25 MG PO ×2 (08:58→18:03)
[2024-08-24] MEDS: FAMOTIDINE INJ 10 MG/ML VIAL 2 ML 20 MG IVP ×2 (08:59→20:47)
--- NOTE | 2024-08-24 10:55 | ESPR_ITS ---
Documentation for date of: 08/24/24 Subjective Subjective Interval history: Patient seen and examined this morning. No overnight events. Patient feels well. Patient tolerating diet. Family at bedside all questions and concerns were addressed. Spoke with surgeon [id number] today. Plan for surgery tomorrow. Exam Vital Signs Temp Pulse Resp BP Pulse Ox O2 Del Method O2 Flow Rate 97.3 F 60 19 151/75 H 95 Room Air 2 08/24/24 08:00 08/24/24 08:58 08/24/24 08:00 08/24/24 08:58 08/24/24 08:00 08/24/24 08:00 08/24/24 04:00 Narrative Exam General Appearance: Alert & Oriented X3, well-nourished male who is lying in bed in no acute distress HEENT: Skull symmetrical and atraumatic. Conjunctivae pink and moist. Pupils equal, round, reactive to light and accommodation (PERRL). External ear without lesion or discharge. Straight, nares patient, mucosa pink, no discharge. No thyroid nodule appreciated. No cervical lymphadenopathy. Cardio: Normal Rate and Rhythm with S1 and S2 heart sounds. Possible holoystolic murmur noted. . No bruits on carotid auscultation. No peripheral edema or cyanosis. Lungs: Symmetric with good expansion. Chest and back non-tender. Breath sounds vesicular without crackles, wheezing or rhonchi Abdomen: mild tenderness, Non-distended, Normal Reactive Bowel Sounds, hyperresonant on right lower and upper quadrant Neuro: Alert, cooperative, oriented to person, place, and time. Speech clear. CN grossly intact. Upper motor strength 4/5 and Lower motor strength 5/5. Sensation intact. Left facial drop noted near nasol-labial, improved. Objective Labs 08/21/24 05:05 08/21/24 05:05 Quality Measures Quality Measures stroke Suspected type of Stroke: TIA Last known well (date): 08/16/24 Last known well (time): 20:00 Tenecteplase given: Reason(s) Tenecteplase not given: Acute bleeding diathesis (recent GI bleeding and is being worked up as an outpatient for colon CA per teleneurology) not given Rehab services: PT evaluation ordered VTE Prophylaxis: not indicated Antithrombotic by day 2:: contraindicated (describe) (GI bleed) Statin ordered: >75 y/o moderate or high intensity dose Anticoagulation ordered for A-fib or flutter (current or hx): not indicated Advance care planning discussed with:: patient Assessment & Plan Assessment Current Active Medications: Generic Name Dose Route Start Last Admin Trade Name Freq PRN Reason Stop Dose Admin Acetaminophen 650 mg 08/19/24 07:52 Acetaminophen 325 Mg Tablet PO 09/15/24 23:15 Q6H PRN Fever >100.3 or pain 1-3 Albuterol/Ipratropium 3 ml 08/16/24 23:14 Albuterol/Ipratropium (Duoneb) Rt Shelly 3 Ml Nebu INH 09/15/24 23:13 Q2HR PRN SHORTNESS OF BREATH OR WHEEZE Aspirin 81 mg 08/19/24 10:00 08/20/24 10:46 Aspirin Ec 81 Mg Tabec PO 09/18/24 09:59 Not Given QDAY RAGINI Atorvastatin Calcium 40 mg 08/18/24 21:00 08/23/24 21:07 Atorvastatin Calcium 20 Mg Tablet PO 09/17/24 20:59 40 mg HS RAGINI Administration Carvedilol 6.25 mg 08/20/24 08:00 08/24/24 08:58 Carvedilol 3.125 Mg Tablet PO 09/19/24 07:59 6.25 mg BIDWM RAGINI Administration Clopidogrel Bisulfate 75 mg 08/21/24 09:00 Clopidogrel Bisulfate 75 Mg Tablet PO 09/20/24 08:59 QDAY RAGINI Enoxaparin Sodium 40 mg 08/20/24 11:45 08/23/24 09:18 Enoxaparin Sod Inj 40 Mg/0.4 Ml Syringe SC 09/03/24 11:44 40 mg QDAY RAGINI Administration Famotidine 20 mg 08/17/24 09:00 08/24/24 08:59 Famotidine Inj 10 Mg/Ml Vial 2 Ml IVP 09/16/24 08:59 20 mg Q12HR RAGINI Administration Labetalol HCl 10 mg 08/16/24 23:23 Labetalol Inj 5 Mg/Ml Vial 20 Ml IVP 09/15/24 23:29 Q10MIN PRN SBP > 220 Losartan Potassium 25 mg 08/20/24 09:00 08/23/24 09:19 Losartan Potassium 25 Mg Tablet PO 02/20/25 08:59 25 mg QDAY RAGINI Administration Ondansetron HCl 4 mg 08/16/24 23:16 Ondansetron Inj 2 Mg/Ml Inj 2 Ml IV 09/15/24 23:15 Q6H PRN NAUSEA OR VOMITING Protocol Sennosides 1 tab 08/17/24 09:00 08/23/24 09:19 Senna Tablet PO 09/16/24 08:59 1 tab QDAY RAGINI Administration Protocol Plan This patient is an 84-year-old male with past medical history significant for essential hypertension, hyperlipidemia, chronic stroke, history of prostate cancer s/p radiation September 2012 in remission and sigmoid colon mass for investigation presenting today with a chief complaint of left face tingling and left arm tingling. Patient will be admitted for workup and management of stroke rule out. History of prostate cancer. #Sigmoid colon mass for investigation s/p biopsy #GI bleed Patient says for the past few months he has bright red blood upon wiping every few days. Patient also had an abdomen/pelvis CT last year April which showed a sigmoid mass suspicious for neoplasm and colonoscopy on 08/19/2024 showed an partially obstructing mass. F/U with PSA in AM. Plan: -PT evaluation stated that we need home health occupational therapy to address his limitations with fine motor skills in left upper extremity post CVA. -Anticipated plan for surgery on August 25per surgeon recommendations -CLD today -Golytely colon prep today -NPO after midnight due to surgery -Order a.m. labs for Monday -HOLDING aspirin and plavix ?GI, Dr. Orozco consulted. Appreciate recommendations. -General surgery consulted, appreciate recommendations, Dr. Jade. #Acute R parietal lobe infarct #History of right parietal infarct 05/12/2024 Patient presented with left facial numbness and left arm tingling. On exam patient had mild slurred speech, left facial tingling and left arm tingling. Today, improved as compared to admission NIHSS score of 2. Previous echo on file showed negative PFO and ASD (05/12/2024). This is patient's third stroke -Head CT negative for acute hemorrhage, mass effect or midline shift. Head/neck CTA negative for significant neck arterial stenosis and cerebral large vessel arterial occlusions. MRI brain 10 mm acute infarct right parietal lobe Plan: - Plavix 75mg PO qd and Aspirin 81 mg Qday-HOLDING tumor resection in colon - PT/OT referrals placed--> HH, pending major surgey now - PRN Acetaminophen 650mg to avoid hyperthermia - Labetalol 10 Mg IV Q 10 minutes as needed for SBP >220, restarted home medication, out of permissive HTN window home meds resumed - Dr Diop consulted, pending in-house Neurology recommendations #Essential hypertension #Hyperlipidemia On admission BP 158/79. Home medication losartan 25 Mg p.o. daily, Coreg 6.25 Mg p.o. twice daily and amlodipine 10 Mg p.o. daily Home medication atorvastatin 80 Mg p.o. every afternoon Plan: ?Resumed home medication atorvastatin 40 Mg p.o. every afternoon -Resumed Losartan 25 mg QDay -Resume Coreg 6.25 mg PO -Holding amlodipine 10 mg HS -out of window for permissive for permissive HTN #Elevated PSA -PSA 7.21 Plan: -Outpatient follow up #History of prostate cancer s/p radiation September 2012 in remission Health maintenance: Disposition: Patient will remained hospitalized for tumor resection at colon site for partially obstructing tumor on 08/25/2024. Diet: clear liquids, advanced diet as tolerated. Lines: pIVs, tele box GI Prophylaxis: Famotidine 20 mg IV BID Thrombo Prophylaxis: SCDs/Levonox Code status: FULL CODE - Patient's care was discussed with my attending physician, Dr. Nori Vogel MD Internal Medicine PGY-3 Attending Provider Attestation/Addendum I have examined the patient, reviewed labs and imaging findings, discussed the case with the resident(s), and reviewed entered orders. I agree with the plan of care as outlined in this note, with these additional summaries/recommendations: Patient seen at bedside. No acute overnight events. Patient diagnosed with acute CVA. MRI revealed 10 mm acute infract right parietal lobe. Echocardiogram with negative bubble study. Continue statin therapy. Holding anticoagulation as patient was found to have GI bleed. Colonoscopy revealed malignant partially obstructing tumor in the sigmoid colon. CEA level within normal limits 1.4. PSA 7.21. General surgery was consulted. Biopsy results returned from colonoscopy showing INVASIVE ADENOCARCINOMA which is well- differentiated. Given that patient had recently received Plavix surgery was initially deferred. Plan is for surgical intervention tomorrow 08/25/23. Patient started on GoLytely prep. Patient updated on the plan and in agreement. Repeat hematology and chemistry panel in AM. Dr. Julio
--- NOTE | 2024-08-24 12:34 | PD.SURPROG ---
Documentation for date of: 08/24/24 Subjective Subjective Narrative: Patient is seen and examined. He is resting comfortably Exam Vital Signs Temp Pulse Resp BP Pulse Ox O2 Del Method O2 Flow Rate 97.3 F 68 19 152/70 H 95 Room Air 2 08/24/24 11:55 08/24/24 11:55 08/24/24 11:55 08/24/24 11:55 08/24/24 11:55 08/24/24 11:55 08/24/24 04:00 Constitutional Constitutional: no acute distress Routine Abdominal Exam Comments: Abdomen is soft nondistended, and nontender Assessment & Plan Diagnosis (1) Malignant neoplasm of sigmoid colon: Status: Acute Plan Will start patient on GoLytely and plan for exploratory laparotomy and sigmoid colectomy tomorrow. Risks that include but not limited to infection, bleeding, injury to bowel, surround neurovascular structures, spleen, ureter, possible leak from the anastomosis site, abdominal sepsis and or abdominal abscess, need for further procedure and or operation, pneumonia, blood clot, heart attack, stroke and discussed with the patient and his family. Benefits and alternatives explained to them, all their questions answered, they agreed and consented to proceed with the operation.
[2024-08-24] MEDS: ENOXAPARIN SOD INJ 40 MG/0.4 ML SYRINGE SC (13:06)
[2024-08-24] MEDS: LOSARTAN POTASSIUM 25 MG TABLET PO (13:07)
[2024-08-24] MEDS: SENNA TABLET 1 TAB PO (13:07)
[2024-08-24] MEDS: NA SU/NAHCO3/KC/PEG (Golytely) 4,000 ML BTL 4000 ML PO (13:07)
--- NOTE | 2024-08-24 16:09 | PD.VPROG1 ---
Telemedicine visit statement This visit was conducted with the use of interactive audio and video telecommunications system that permits real time communication between the patient and the provider. Patient's verbal consent for virtual visit was obtained on 08/24/24 at 1609. Documentation for date of: 08/24/24 Subjective Subjective Interval history: Patient is in medtelemetry. His left facial droop and left UE weakness are resolving, able to ambulate without any assistance. No new symptoms reported. Tolerating oral diet well. Slept well overnight. Virtual exam Vital Signs Temp Pulse Resp BP Pulse Ox O2 Del Method O2 Flow Rate 97.3 F 74 19 144/72 H 95 Room Air 2 08/24/24 15:36 08/24/24 15:36 08/24/24 15:36 08/24/24 15:36 08/24/24 15:36 08/24/24 15:36 08/24/24 04:00 Objective Labs 08/25/24 05:29 08/25/24 05:29 Assessment & Plan Assessment (1) Acute CVA (cerebrovascular accident): mri Brain showed acute infarct in the right parietal area. improving in deficit: left facial and UE weakness Continue with BP control and statin hold off on antiplatelet agents because of GI bleeding (2) Essential (primary) hypertension: continue Losartan and Carvedilol (3) Hyperlipidemia: continue with statin (4) Malignant neoplasm of sigmoid colon: colonoscopy : showed hemorrhoids, divericulitis and malignant sigmoid colon going for sigmoid colectomy. CEA : 1.4, WNL
--- NOTE | 2024-08-24 16:49 | PD.IMPROG ---
Documentation for date of: 08/24/24 Subjective Subjective Interval history: Surgical note appreciated Exam Vital Signs Temp Pulse Resp BP Pulse Ox O2 Del Method O2 Flow Rate 97.3 F 74 19 144/72 H 95 Room Air 2 08/24/24 15:36 08/24/24 15:36 08/24/24 15:36 08/24/24 15:36 08/24/24 15:36 08/24/24 15:36 08/24/24 04:00 Objective Labs 08/21/24 05:05 08/21/24 05:05 Impressions Impression: # Sigmoid colon obstructing carcinoma Surgical intervention Assessment & Plan A&P Narrative # Sigmoid colon mass Case discussed with internal medicine team Clear liquid diet GoLytely prep Colonoscopy tentatively scheduled for tomorrow morning if the patient is clear CEA level Other medical problems include # Right parietal infarct 10 mm # Prostate carcinoma 2013 s/p radiation therapy # Hyperlipidemia # Essential hypertension Thank you very much for the opportunity to participate in the care of this patient Time Spent With Patient Time: Total time spent is greater than 50% in coordination of care (as documented) at patient's floor/unit and/or counseling patient:
[2024-08-24] MEDS: ATORVASTATIN CALCIUM 20 MG TABLET 40 MG PO (20:48)
[2024-08-25] VITALS (15 sets, daily range): BP systolic 136–168; BP diastolic 69–78; PULSE 49–87; RESP 12–18; TEMP 36.3–36.9; O2SAT 96–99; BMI 31.2
[2024-08-25 06:22] LABS: Basophils % (Auto) 1 % (0-2.5); Eosinophils # (Auto) 0.1 Thou/mm3 (0.0-0.5); Eosinophils % (Auto) 2 % (0-10); Hematocrit 36.8 % (41.0-53.0); Hemoglobin 12.1 g/dL (13.5-16.0); Immature Granulocytes % (Auto) 0 % (0-0); Immature Granulocytes Auto 0.01 Thou/mm3 (0.00-0.00); Lymphocytes # (Auto) 1.3 Thou/mm3 (1.0-4.8); Lymphocytes % (Auto) 25 % (10-50); Mean Corpuscular HGB Conc 32.9 g/dl (31.0-37.0); Mean Corpuscular Hemoglobin 29.4 pg (25.0-35.0); Mean Corpuscular Volume 89 fL (80-100); Monocytes # (Auto) 0.5 Thou/mm3 (0.0-0.8); Monocytes % (Auto) 10 % (0-12); Neutrophils # (Auto) 3.2 Thou/mm3 (1.8-7.7); Neutrophils % (Auto) 62 % (37-80); Nucleated Red Blood Cell % 0 /100 WBC (0); Platelet Count 175 Thou/mm3 (140-440); RDW Standard Deviation 43.6 fL (35.1-43.9); Red Blood Count 4.12 Miln/mm3 (4.50-5.90); White Blood Count 5.2 Thou/mm3 (3.8-10.6)
[2024-08-25 06:38] LABS: INR 1.1 (0.9-1.3); Partial Thromboplastin Time 25.1 Seconds (22.0-36.0); Prothrombin Time 11.9 Seconds (9.0-12.2)
[2024-08-25 06:57] LABS: Alanine Aminotransferase 8 U/L (10-49); Albumin, Serum 3.8 gm/dL (3.4-4.8); Albumin/Globulin Ratio 1.7 (1.2-2.2); Alkaline Phosphatase 78 U/L (46-116); Anion Gap 9 (7-16); Aspartate Amino Transferase 11 U/L (0-34); BUN/Creatinine Ratio 8 Ratio (12-20); Bilirubin,Total 0.8 mg/dL (0.3-1.2); Blood Urea Nitrogen 6 mg/dL (9-23); Calcium (Corrected) 9.2 mg/dL (8.5-10.1); Carbon Dioxide 27.7 mMol/L (20.0-31.0); Chloride 104 mMol/L (98-107); Creatinine (Component) 0.8 mg/dL (0.6-1.3); Globulin 2.3 gm/dL (2.3-3.5); Glucose 79 mg/dL (74-106); Osmolality,Calculated 277 (275-295); Phosphorous 3.4 mg/dL (2.4-5.1); Sodium 141 mMol/L (136-145); Total Protein 6.1 gm/dL (5.7-8.2); eGFR > 60 See Note
[2024-08-25] MEDS: FAMOTIDINE INJ 10 MG/ML VIAL 2 ML 20 MG IVP ×2 (09:32→20:11)
[2024-08-25] MEDS: carVEDILOL 3.125 MG TABLET 6.25 MG PO (09:32)
--- NOTE | 2024-08-25 10:00 | PC.SS ---
Rounding: SX plan for today with
--- NOTE | 2024-08-25 11:38 | PD.RESPRO ---
Documentation for date of: 08/25/24 Subjective Subjective Interval history: Patient was not seen and examined at the bedside IV was taken out for surgery. Vitals showed blood pressure 148/69. Heart rate was 59 bpm. Labs showed hemoglobin stable at 12.1. INR was 1.1. Chemistry panel was unremarkable. Kidney functions remained stable. Patient underwent explorative laparotomy and sigmoid colectomy with low pelvic anastomosis. Will closely monitor for pain management. Pathology report came back as invasive adenocarcinoma. All labs and orders were reviewed. Exam Vital Signs Temp Pulse Resp BP Pulse Ox O2 Del Method O2 Flow Rate 97.3 F 63 18 142/72 H 96 Room Air 2 08/25/24 07:46 08/25/24 09:32 08/25/24 07:46 08/25/24 09:32 08/25/24 07:46 08/25/24 07:46 08/25/24 04:00 Narrative Exam General Appearance: Alert & Oriented X3, well-nourished male who is lying in bed in no acute distress HEENT: Skull symmetrical and atraumatic. Conjunctivae pink and moist. Pupils equal, round, reactive to light and accommodation (PERRL). External ear without lesion or discharge. Straight, nares patient, mucosa pink, no discharge. No thyroid nodule appreciated. No cervical lymphadenopathy. Cardio: Normal Rate and Rhythm with S1 and S2 heart sounds. Possible holoystolic murmur noted. . No bruits on carotid auscultation. No peripheral edema or cyanosis. Lungs: Symmetric with good expansion. Chest and back non-tender. Breath sounds vesicular without crackles, wheezing or rhonchi Abdomen: mild tenderness, Non-distended, Normal Reactive Bowel Sounds, hyperresonant on right lower and upper quadrant Neuro: Alert, cooperative, oriented to person, place, and time. Speech clear. CN grossly intact. Upper motor strength 4/5 and Lower motor strength 5/5. Sensation intact. Left facial drop noted near nasol-labial, improved. Objective Labs 08/25/24 05:29 08/25/24 05:29 Labs: Laboratory Results - last 24 hr 08/25/24 05:29 WBC 5.2 RBC 4.12 L Hgb 12.1 L Hct 36.8 L MCV 89 MCH 29.4 MCHC 32.9 RDW Std Deviation 43.6 Plt Count 175 Neut % (Auto) 62 Lymph % (Auto) 25 [place] % (Auto) 10 Eos % (Auto) 2 Baso % (Auto) 1 Neut # (Auto) 3.2 Lymph # (Auto) 1.3 [place] # (Auto) 0.5 Eos # (Auto) 0.1 Baso # (Auto) 0.0 Immature Gran # (Auto) 0.01 H Absolute Nucleated RBC 0.00 Immature Gran % 0 Nucleated RBC % 0 PT 11.9 INR 1.1 APTT 25.1 Sodium 141 Potassium 4.0 Chloride 104 Carbon Dioxide 27.7 Anion Gap 9 BUN 6 L Creatinine 0.8 Estim Creat Clear Calc 79.0 eGFR > 60 BUN/Creatinine Ratio 8 L Glucose 79 Calculated Osmolality 277 Calcium 9.0 Corrected Calcium 9.2 Phosphorus 3.4 Magnesium 2.0 Total Bilirubin 0.8 AST 11 ALT 8 L Alkaline Phosphatase 78 Total Protein 6.1 Albumin 3.8 Globulin 2.3 Albumin/Globulin Ratio 1.7 Quality Measures Quality Measures stroke Suspected type of Stroke: TIA Last known well (date): 08/16/24 Last known well (time): 20:00 Tenecteplase given: Reason(s) Tenecteplase not given: Acute bleeding diathesis (recent GI bleeding and is being worked up as an outpatient for colon CA per teleneurology) not given Rehab services: PT evaluation ordered VTE Prophylaxis: pharmaceutical Antithrombotic by day 2:: not indicated (describe) Statin ordered: <75 y/o high intensity dose Anticoagulation ordered for A-fib or flutter (current or hx): not indicated Advance care planning discussed with:: other Assessment & Plan Assessment Current Active Medications: Generic Name Dose Route Start Last Admin Trade Name Forrestq PRN Reason Stop Dose Admin Acetaminophen 650 mg 08/19/24 07:52 Acetaminophen 325 Mg Tablet PO 09/15/24 23:15 Q6H PRN Fever >100.3 or pain 1-3 Albuterol/Ipratropium 3 ml 08/16/24 23:14 Albuterol/Ipratropium (Duoneb) Rt Shelly 3 Ml Nebu INH 09/15/24 23:13 Q2HR PRN SHORTNESS OF BREATH OR WHEEZE Atorvastatin Calcium 40 mg 08/18/24 21:00 08/24/24 20:48 Atorvastatin Calcium 20 Mg Tablet PO 09/17/24 20:59 40 mg HS RAGINI Administration Carvedilol 6.25 mg 08/20/24 08:00 08/25/24 09:32 Carvedilol 3.125 Mg Tablet PO 09/19/24 07:59 6.25 mg BIDWM RAGINI Administration Enoxaparin Sodium 40 mg 08/20/24 11:45 08/24/24 13:06 Enoxaparin Sod Inj 40 Mg/0.4 Ml Syringe SC 09/03/24 11:44 40 mg QDAY RAGINI Administration Famotidine 20 mg 08/17/24 09:00 08/25/24 09:32 Famotidine Inj 10 Mg/Ml Vial 2 Ml IVP 09/16/24 08:59 20 mg Q12HR RAGINI Administration Losartan Potassium 25 mg 08/20/24 09:00 08/24/24 13:07 Losartan Potassium 25 Mg Tablet PO 09/19/24 08:59 25 mg QDAY RAGINI Administration Ondansetron HCl 4 mg 08/16/24 23:16 Ondansetron Inj 2 Mg/Ml Inj 2 Ml IV 09/15/24 23:15 Q6H PRN NAUSEA OR VOMITING Protocol Sennosides 1 tab 08/17/24 09:00 08/24/24 13:07 Senna Tablet PO 09/16/24 08:59 1 tab QDAY RAGINI Administration Protocol Plan This patient is an 84-year-old male with past medical history significant for essential hypertension, hyperlipidemia, chronic stroke, history of prostate cancer s/p radiation September 2012 in remission and sigmoid colon mass for investigation presenting today with a chief complaint of left face tingling and left arm tingling. Patient will be admitted for workup and management of stroke rule out. History of prostate cancer. #S/p sigmoid colectomy with low pelvic anastomosis #Likely due to sigmoid colon invasive adenocarcinoma per pathology report #GI bleed Patient says for the past few months he has bright red blood upon wiping every few days. Patient also had an abdomen/pelvis CT last year April which showed a sigmoid mass suspicious for neoplasm and colonoscopy on 08/19/2024 showed an partially obstructing mass. F/U with PSA in AM. 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 Plan: -Patient underwent sigmoid colectomy with low pelvic anastomosis for sigmoid colon invasive adenocarcinoma performed by surgeon, Dr Jade today without complication -Pain management as needed -PT evaluation stated that we need home health occupational therapy to address his limitations with fine motor skills in left upper extremity post CVA. -HOLDING aspirin and plavix ?GI, Dr. Orozco consulted. Appreciate recommendations. -General surgery consulted, appreciate recommendations, Dr. Jade. #Acute R parietal lobe infarct #History of right parietal infarct 05/12/2024 Patient presented with left facial numbness and left arm tingling. On exam patient had mild slurred speech, left facial tingling and left arm tingling. Today, improved as compared to admission NIHSS score of 2. Previous echo on file showed negative PFO and ASD (05/12/2024). This is patient's third stroke -Head CT negative for acute hemorrhage, mass effect or midline shift. Head/neck CTA negative for significant neck arterial stenosis and cerebral large vessel arterial occlusions. MRI brain 10 mm acute infarct right parietal lobe Plan: - Plavix 75mg PO qd and Aspirin 81 mg Qday-HOLDING tumor resection in colon - PT/OT referrals placed--> , pending major surgey now - PRN Acetaminophen 650mg to avoid hyperthermia - Labetalol 10 Mg IV Q 10 minutes as needed for SBP >220, restarted home medication, out of permissive HTN window home meds resumed - Dr Diop consulted, pending in-house Neurology recommendations #Essential hypertension #Hyperlipidemia On admission BP 158/79. Home medication losartan 25 Mg p.o. daily, Coreg 6.25 Mg p.o. twice daily and amlodipine 10 Mg p.o. daily Home medication atorvastatin 80 Mg p.o. every afternoon Plan: ?Resumed home medication atorvastatin 40 Mg p.o. every afternoon -Resumed Losartan 25 mg QDay -Resume Coreg 6.25 mg PO -Holding amlodipine 10 mg HS -out of window for permissive for permissive HTN #Elevated PSA -PSA 7.21 Plan: -Outpatient follow up #History of prostate cancer s/p radiation September 2012 in remission Health maintenance: Disposition: Patient underwent sigmoid colectomy with low pelvic anastomosis. Postop pain management. Diet: N.p.o. for surgery Lines: pIVs, tele box GI Prophylaxis: Famotidine 20 mg IV BID Thrombo Prophylaxis: SCDs/Levonox Code status: FULL CODE - Patient was seen and discussed with attending physician, Dr. Nori Millan MD, PGY 2 Attending Provider Attestation/Addendum I have examined the patient, reviewed labs and imaging findings, discussed the case with the resident(s), and reviewed entered orders. I agree with the plan of care as outlined in this note, with these additional summaries/recommendations: Patient seen at bedside. No acute overnight events. Patient will go to OR today for ex lap in setting of malignant neoplasm of sigmoid colon. Patient has found to have GI bleed on admission. Colonoscopy revealed malignant partially obstructing tumor in the sigmoid colon. CEA level within normal limits 1.4. PSA 7.21. General surgery was consulted. Biopsy results returned from colonoscopy showing INVASIVE ADENOCARCINOMA which is well-differentiated. Given that patient had recently received Plavix surgery was initially deferred although patient will go for surgery today. Patient diagnosed with acute CVA on admission as well. MRI revealed 10 mm acute infract right parietal lobe. Echocardiogram with negative bubble study. Continue statin therapy. Plavix and aspirin currently on hold for surgery. We will resume as tolerated. Patient updated on the plan and in agreement. Repeat hematology and chemistry panel in AM. Dr. Julio
--- NOTE | 2024-08-25 14:03 | PD.SUROPNT ---
Date of Procedure 08/25/24 Pre Op Diagnosis Malignant neoplasm of sigmoid colon Post Op Diagnosis Malignant neoplasm of sigmoid colon Procedure Exploratory laparotomy, sigmoid colectomy with low pelvic anastomosis Findings Near obstructing sigmoid tumor with marking clearly visible. No evidence of pelvic, omental or peritoneal nodules Anesthesia GETA and local Pathology / specimen Other (Sigmoid colon) Estimated Blood Loss 50 Condition Stable Disposition PACU Surgeon Umu Jade MD Surgical Staff Operation Date: 08/27/24 14:15 <No data on this case meets the specified criteria>
--- NOTE | 2024-08-25 14:10 | SUR.PHASEI ---
received patient and report from ERYN Donahue and Dr. Barlow. Pt resting with eyes closed but arousable to voice, no distress noted, vss, HR in the 50's when pt falls asleep, Dr. Barlow made aware. will continue to monitor. dressing to lower abd CDI, f/c in place draining well. IV to left fa intact, no s/s of infiltration or redness noted..
--- NOTE | 2024-08-25 14:51 | SUR.PHASEI ---
pt recovering well, vss, no distress noted. pt resting with eyes closed, dressing remains cdi, f/c draining well, iv still intact. report given to ERYN Lane.
[2024-08-25] MEDS: ACETAMINOPHEN IVPB 1,000 MG/100 ML VIAL 250 MG IV ×2 (15:53→23:03)
[2024-08-25] MEDS: KCL 20 mEq/L in D5-1/2NS 20 MEQ/1,000 ML BAG 60 MEQ IV (16:52)
--- NOTE | 2024-08-25 18:05 | PD.IMPROG ---
Documentation for date of: 08/25/24 Subjective Subjective Interval history: Patient status post sigmoid colectomy with low-lying anastomosis no omental or peritoneal spread Exam Vital Signs Temp Pulse Resp BP Pulse Ox O2 Del Method O2 Flow Rate 97.8 F 81 16 148/77 H 97 Nasal Cannula 2 08/25/24 17:00 08/25/24 17:00 08/25/24 17:00 08/25/24 17:00 08/25/24 17:00 08/25/24 17:00 08/25/24 17:00 Objective Labs 08/25/24 05:29 08/25/24 05:29 Labs: Laboratory Results - last 24 hr 08/25/24 05:29 WBC 5.2 RBC 4.12 L Hgb 12.1 L Hct 36.8 L MCV 89 MCH 29.4 MCHC 32.9 RDW Std Deviation 43.6 Plt Count 175 Neut % (Auto) 62 Lymph % (Auto) 25 [place] % (Auto) 10 Eos % (Auto) 2 Baso % (Auto) 1 Neut # (Auto) 3.2 Lymph # (Auto) 1.3 [place] # (Auto) 0.5 Eos # (Auto) 0.1 Baso # (Auto) 0.0 Immature Gran # (Auto) 0.01 H Absolute Nucleated RBC 0.00 Immature Gran % 0 Nucleated RBC % 0 PT 11.9 INR 1.1 APTT 25.1 Sodium 141 Potassium 4.0 Chloride 104 Carbon Dioxide 27.7 Anion Gap 9 BUN 6 L Creatinine 0.8 Estim Creat Clear Calc 79.0 eGFR > 60 BUN/Creatinine Ratio 8 L Glucose 79 Calculated Osmolality 277 Calcium 9.0 Corrected Calcium 9.2 Phosphorus 3.4 Magnesium 2.0 Total Bilirubin 0.8 AST 11 ALT 8 L Alkaline Phosphatase 78 Total Protein 6.1 Albumin 3.8 Globulin 2.3 Albumin/Globulin Ratio 1.7 Impressions Impression: #status post exploratory laparotomy sigmoid colectomy and primary anastomosis for obstructing mass differential adenocarcinoma of the sigmoid colon Continue present treatment Assessment & Plan A&P Narrative # Sigmoid colon mass Case discussed with internal medicine team Clear liquid diet GoLytely prep Colonoscopy tentatively scheduled for tomorrow morning if the patient is clear CEA level Other medical problems include # 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
[2024-08-25] MEDS: CEFOXITIN 2 GM in Sterile Water 10 ML IV ×2 (18:16→23:02)
[2024-08-25] MEDS: ASCORBIC ACID 250 MG TABLET 500 MG PO (20:12)
[2024-08-25] MEDS: ATORVASTATIN CALCIUM 20 MG TABLET 40 MG PO (20:12)
[2024-08-25] MEDS: DOCUSATE SOD 100 MG CAPSULE PO (20:12)
[2024-08-26] VITALS (8 sets, daily range): BP systolic 143–159; BP diastolic 67–78; PULSE 62–117; RESP 18–21; TEMP 36.2–36.4; O2SAT 94–97
[2024-08-26] MEDS: CEFOXITIN 2 GM in Sterile Water 10 ML IV ×3 (05:12→21:22)
[2024-08-26] MEDS: ACETAMINOPHEN IVPB 1,000 MG/100 ML VIAL 250 MG IV ×2 (05:16→12:06)
[2024-08-26] MEDS: ONDANSETRON INJ 2 MG/ML INJ 2 ML 4 MG IV (05:25)
--- NOTE | 2024-08-26 06:42 | ESPR_ITS ---
Documentation for date of: 08/25/24 Subjective Subjective Interval history: Patient was seen in [facility] today, continues to improve in his left facial and UE weakness. No headache or dz reported. Patient underwent surgery for sigmoid colectomy. Exam - Neurology Vital Signs Temp Pulse Resp BP Pulse Ox O2 Del Method O2 Flow Rate 97.8 F 81 16 148/77 H 97 Nasal Cannula 2 08/25/24 17:00 08/25/24 20:00 08/25/24 17:00 08/25/24 17:00 08/25/24 17:00 08/25/24 17:00 08/25/24 17:00 Narrative Exam GENERAL APPEARANCE: Well hydrated, well-nourished in no acute distress. HEENT: Normocephalic, atraumatic, extraocular movements intact. Pupils: Equal reacting to light and accommodation NECK: Supple, no JVD or bruits. CARDIOVASULAR: Heart: S1, S2 heard, regular without S3-S4 or murmur no rubs or gallops. LUNGS/CHEST: Clear to auscultation bilaterally. No rails, rhonchi, or wheezing. Normal inspection. ABDOMEN: Soft, nontender normal bowel sounds heard EXTREMITIES: Normal inspection and palpation. No edema, clubbing or cyanosis. SKIN: Warm and dry without rashes. Normal inspection. MUSCULOSKELETAL: No cervical, thoracic, lumbar or midline bony tenderness. Normal inspection. NEURO: Alert, awake and oriented x3. Cranial nerves: II through XII grossly intact with exception of improving left facial weakness of upper motor neuron type. Speech and language: Normal with no dysarthria or dysphasia. Motor system: Tone and bulk: Normal: Strength: 5 out of 5 in all 4 extremities; mild left pronator drift noted. Deep tendon reflexes: 2+ bilaterally symmetrical. Plantar reflex: Downgoing bilaterally. Sensory system: Intact to all modalities of sensation bilaterally. Coordination: Intact to [id number] and [id number] test bilaterally. No ataxia, but mild dysmetria and dysdiadochokinesia noted in the left upper extremity. No intention tremors noted. Gait: Not tested. No signs of meningeal irritation noted. PSYCHIATRIC: Normal mood and affect. Objective Labs 08/25/24 05:29 08/25/24 05:29 Labs: Laboratory Results - last 24 hr 08/25/24 05:29 Sodium 141 Potassium 4.0 Chloride 104 Carbon Dioxide 27.7 Anion Gap 9 BUN 6 L Creatinine 0.8 Estim Creat Clear Calc 79.0 eGFR > 60 BUN/Creatinine Ratio 8 L Glucose 79 Calculated Osmolality 277 Calcium 9.0 Corrected Calcium 9.2 Phosphorus 3.4 Magnesium 2.0 Total Bilirubin 0.8 AST 11 ALT 8 L Alkaline Phosphatase 78 Total Protein 6.1 Albumin 3.8 Globulin 2.3 Albumin/Globulin Ratio 1.7 Assessment & Plan Assessment and plan (1) Malignant neoplasm of sigmoid colon: Status: Acute Assessment and plan: Status post sigmoid colectomy. Patient has been off of antiplatelets since admission. Pathology confirmed adenocarcinoma (2) Acute CVA (cerebrovascular accident): Status: Acute Assessment and plan: mri Brain showed acute infarct in the right parietal area. improving in deficit: left facial and UE weakness Continue with BP control and statin hold off on antiplatelet agents because of GI bleeding. Neurologically stable (3) Essential (primary) hypertension: Status: Acute Assessment and plan: continue Losartan and Carvedilol (4) Hyperlipidemia: Status: Acute Assessment and plan: continue with statin
[2024-08-26 06:46] LABS: Basophils % (Auto) 0 % (0-2.5); Eosinophils % (Auto) 0 % (0-10); Hematocrit 38.2 % (41.0-53.0); Hemoglobin 12.9 g/dL (13.5-16.0); Immature Granulocytes % (Auto) 1 % (0-0); Immature Granulocytes Auto 0.06 Thou/mm3 (0.00-0.00); Lymphocytes # (Auto) 0.7 Thou/mm3 (1.0-4.8); Lymphocytes % (Auto) 7 % (10-50); Mean Corpuscular HGB Conc 33.8 g/dl (31.0-37.0); Mean Corpuscular Hemoglobin 29.9 pg (25.0-35.0); Mean Corpuscular Volume 88 fL (80-100); Monocytes # (Auto) 0.4 Thou/mm3 (0.0-0.8); Monocytes % (Auto) 4 % (0-12); Neutrophils # (Auto) 9.7 Thou/mm3 (1.8-7.7); Neutrophils % (Auto) 89 % (37-80); Nucleated Red Blood Cell % 0 /100 WBC (0); Platelet Count 193 Thou/mm3 (140-440); RDW Standard Deviation 42.4 fL (35.1-43.9); Red Blood Count 4.32 Miln/mm3 (4.50-5.90)
[2024-08-26 07:38] LABS: Alanine Aminotransferase 9 U/L (10-49); Albumin, Serum 3.9 gm/dL (3.4-4.8); Albumin/Globulin Ratio 1.6 (1.2-2.2); Alkaline Phosphatase 75 U/L (46-116); Anion Gap 10 (7-16); Aspartate Amino Transferase 11 U/L (0-34); BUN/Creatinine Ratio 7 Ratio (12-20); Bilirubin,Total 0.8 mg/dL (0.3-1.2); Blood Urea Nitrogen 11 mg/dL (9-23); Calcium 8.9 mg/dL (8.3-10.6); Carbon Dioxide 26.2 mMol/L (20.0-31.0); Chloride 100 mMol/L (98-107); Creatinine (Component) 1.5 mg/dL (0.6-1.3); Estimated Creatinine Clearance 42.1 mL/min (>60); Globulin 2.4 gm/dL (2.3-3.5); Glucose 137 mg/dL (74-106); Magnesium 1.9 mg/dL (1.6-2.6); Osmolality,Calculated 273 (275-295); Phosphorous 3.6 mg/dL (2.4-5.1); Potassium 4.4 mMol/L (3.4-5.1); Sodium 136 mMol/L (136-145); Total Protein 6.3 gm/dL (5.7-8.2); eGFR 46 See Note
[2024-08-26] MEDS: DOCUSATE SOD 100 MG CAPSULE PO ×2 (08:48→20:14)
[2024-08-26] MEDS: carVEDILOL 3.125 MG TABLET 6.25 MG PO (08:48)
[2024-08-26] MEDS: ASCORBIC ACID 250 MG TABLET 500 MG PO ×2 (08:48→20:14)
[2024-08-26] MEDS: ZINC SULFATE 220 MG CAPSULE PO (08:49)
[2024-08-26] MEDS: FAMOTIDINE INJ 10 MG/ML VIAL 2 ML 20 MG IVP (08:49)
[2024-08-26] MEDS: Magnesium Sulfate 2 GM Ivpb 2 GM/50 ML BAG IV (09:07)
[2024-08-26] MEDS: amLODIPine BESYLATE 5 MG TABLET 10 MG PO (09:54)
[2024-08-26] MEDS: KCL 20 mEq/L in D5-1/2NS 20 MEQ/1,000 ML BAG 60 MEQ IV (10:02)
--- NOTE | 2024-08-26 10:40 | PC.SS ---
SS follow up note; MANDO and pain management. Patient is still not medically cleared.
[2024-08-26] MEDS: SODIUM CHLORIDE 0.9% 1000 ML 1,000 ML 80 ML IV (11:09)
--- NOTE | 2024-08-26 12:56 | PD.ANESPROG ---
Documentation for date of: 08/26/24 POST ANESTHESIA NOTE: Patient had GETA for ex lap, sigmoid resection yesterday. Pre-op, he is found to have acute CVA with L facial droop and L UE numbness and weakness which he reported is improving, and has been followed by medicine/neurology team. He denied any chest pains. Given his acute CVA, his risk of recurrent CVA is higher in the next 3-6 months and elective surgery is usually postponed, however as per the discussion with the surgeon, this was bowel cancer related surgery with possible obstruction and thus could not be postponed, thus all agreed to proceed including the patient. He did well intra-op and his vitals, especially O2 and BP, were maintained. I just saw him briefly in 376 around 12:50 pm with his grand daughter at bedside and he was alert and calm in bed, NAD, c/o post op abdominal pain, denied chest pain, no new gross neuro deficit. I educated his grand daughter about his CVA. They had no further questions for me. Riley Barlow MD Anesthesia Progress Note Progress Note Most recent Vital Signs: Last Vital Signs Temp 97.4 F 08/26/24 12:00 Pulse 62 08/26/24 12:00 Resp 18 08/26/24 12:00 BP 153/67 H 08/26/24 12:00 Pulse Ox 96 08/26/24 12:00 O2 Del Method Room Air 08/26/24 12:00 O2 Flow Rate 2 08/25/24 17:00
--- NOTE | 2024-08-26 14:38 | PD.RESPRO ---
Documentation for date of: 08/26/24 Subjective Subjective Interval history: No overnight events. Patinet examined at bedside. This is patients s/p laparotomy, sigmoid colectomy w/ low pelvic anastomaosis post op day 1. Patient has bee afebrile and denied chills. No shortness of breath. Patient is passing gas. Patient will remain NPO. Continue K w/ dextrose IV per surgery. Continue to hold Asprin and Plavix. Exam Vital Signs Temp Pulse Resp BP Pulse Ox O2 Del Method O2 Flow Rate 97.4 F 62 18 153/67 H 96 Room Air 2 08/26/24 12:00 08/26/24 12:00 08/26/24 12:00 08/26/24 12:00 08/26/24 12:08/26/24 12:08/25/24 17:00 Narrative Exam General Appearance: Alert & Oriented X3, well-nourished male who is lying in bed in no acute distress HEENT: Skull symmetrical and atraumatic. Conjunctivae pink and moist. Pupils equal, round, reactive to light and accommodation (PERRL). External ear without lesion or discharge. Straight, nares patient, mucosa pink, no discharge. No thyroid nodule appreciated. No cervical lymphadenopathy. Cardio: Normal Rate and Rhythm with S1 and S2 heart sounds. Possible holoystolic murmur noted. No bruits on carotid auscultation. No peripheral edema or cyanosis. Lungs: Symmetric with good expansion. Chest and back non-tender. Breath sounds vesicular without crackles, wheezing or rhonchi Abdomen: Mild tenderness secondary to s/p tumor resection, Non-distended, Normal Reactive Bowel Sounds. Neuro: Alert, cooperative, oriented to person, place, and time. Speech clear. CN grossly intact. Upper motor strength 4/5 and Lower motor strength 5/5. Sensation intact. Left facial drop noted near nasol-labial, resolved. Objective Labs 08/27/24 05:10 08/27/24 05:10 Labs: Laboratory Results - last 24 hr 08/26/24 05:24 WBC 11.0 H D RBC 4.32 L Hgb 12.9 L Hct 38.2 L MCV 88 MCH 29.9 MCHC 33.8 RDW Std Deviation 42.4 Plt Count 193 Neut % (Auto) 89 H Lymph % (Auto) 7 L Sebastian % (Auto) 4 Eos % (Auto) 0 Baso % (Auto) 0 Neut # (Auto) 9.7 H Lymph # (Auto) 0.7 L Sebastian # (Auto) 0.4 Eos # (Auto) 0.0 Baso # (Auto) 0.0 Immature Gran # (Auto) 0.06 H Absolute Nucleated RBC 0.00 Immature Gran % 1 H Nucleated RBC % 0 Sodium 136 Potassium 4.4 Chloride 100 Carbon Dioxide 26.2 Anion Gap 10 BUN 11 Creatinine 1.5 H D Estim Creat Clear Calc 42.1 L eGFR 46 L BUN/Creatinine Ratio 7 L Glucose 137 H D Calculated Osmolality 273 L Calcium 8.9 Corrected Calcium 9.0 Phosphorus 3.6 Magnesium 1.9 Total Bilirubin 0.8 AST 11 ALT 9 L Alkaline Phosphatase 75 Total Protein 6.3 Albumin 3.9 Globulin 2.4 Albumin/Globulin Ratio 1.6 Quality Measures Quality Measures stroke Suspected type of Stroke: TIA Last known well (date): 08/16/24 Last known well (time): 20:00 Tenecteplase given: Reason(s) Tenecteplase not given: Acute bleeding diathesis (recent GI bleeding and is being worked up as an outpatient for colon CA per teleneurology) not given Rehab services: PT evaluation ordered and Speech Language Pathology eval ordered VTE Prophylaxis: mechanical Antithrombotic by day 2:: contraindicated (describe) Statin ordered: >75 y/o moderate or high intensity dose Anticoagulation ordered for A-fib or flutter (current or hx): not indicated Advance care planning discussed with:: patient Assessment & Plan Assessment Current Active Medications: Generic Name Dose Route Start Last Admin Trade Name Freq PRN Reason Stop Dose Admin Albuterol/Ipratropium 3 ml 08/16/24 23:14 Albuterol/Ipratropium (Duoneb) Rt Shelly 3 Ml Nebu INH 09/15/24 23:13 Q2HR PRN SHORTNESS OF BREATH OR WHEEZE Ascorbic Acid 500 mg 08/25/24 21:00 08/26/24 08:48 Ascorbic Acid 250 Mg Tablet PO 09/24/24 20:59 500 mg BID RAGINI Administration Atorvastatin Calcium 40 mg 08/18/24 21:00 08/25/24 20:12 Atorvastatin Calcium 20 Mg Tablet PO 09/17/24 20:59 40 mg HS RAGINI Administration Carvedilol 6.25 mg 08/20/24 08:00 08/26/24 08:48 Carvedilol 3.125 Mg Tablet PO 09/19/24 07:59 6.25 mg BIDWM RAGINI Administration Dextrose 25 ml 08/25/24 18:02 Dextrose 50%-Water Inj 50 Ml Syringe IV 09/24/24 18:01 Q15MIN PRN BG 50-70 responsive npo pt Dextrose 50 ml 08/25/24 18:02 Dextrose 50%-Water Inj 50 Ml Syringe IV 09/24/24 18:01 Q15MIN PRN BG <50 OR BG <70 & pt unresponsive Docusate Sodium 100 mg 08/25/24 21:00 08/26/24 08:48 Docusate Sod 100 Mg Capsule PO 09/24/24 20:59 100 mg BID RAGINI Administration Protocol Famotidine 20 mg 08/17/24 09:00 08/26/24 08:49 Famotidine Inj 10 Mg/Ml Vial 2 Ml IVP 09/16/24 08:59 20 mg Q12HR RAGINI Administration Glucagon 1 mg 08/25/24 18:02 Glucagon Inj 1 Mg Vial IM Q15MIN PRN BG <70, and no IV access Potassium Chloride/Dextrose/Sod Cl 20 meq in 1,000 mls @ 60 mls/hr 08/25/24 14:15 08/26/24 10:02 Kcl 20 Meq/L In D5-1/2ns IV 09/24/24 14:14 60 mls/hr .[id number] RAGINI Administration Cefoxitin Sodium 2 gm/ Sterile 10 mls @ 120 mls/hr 08/25/24 18:00 08/26/24 12:07 Water IV 09/01/24 17:59 120 mls/hr Q6HR RAGINI Administration Losartan Potassium 25 mg 08/20/24 09:00 08/25/24 16:03 Losartan Potassium 25 Mg Tablet PO 09/19/24 08:59 Not Given QDAY RAGINI Morphine Sulfate 3 mg 08/25/24 15:01 Morphine Sulf Inj 10 Mg/Ml Vial IVP 08/30/24 15:00 Q3H PRN PAIN Ondansetron HCl 4 mg 08/25/24 15:01 08/26/24 05:25 Ondansetron Inj 2 Mg/Ml Inj 2 Ml IV 09/24/24 15:00 4 mg Q6HR PRN Administration NAUSEA OR VOMITING Protocol Polyethylene Glycol 17 gm 08/25/24 14:54 Polyethylene Glycol 17 Gm Packet PO 09/25/24 08:59 QDAY PRN constipation Zinc Sulfate 220 mg 08/26/24 09:00 08/26/24 08:49 Zinc Sulfate 220 Mg Capsule PO 09/25/24 08:59 220 mg QDAY RAGINI Administration Plan This patient is an 84-year-old male with past medical history significant for essential hypertension, hyperlipidemia, chronic stroke, history of prostate cancer s/p radiation September 2012 in remission and sigmoid colon mass for investigation presenting today with a chief complaint of left face tingling and left arm tingling. Patient will be admitted for workup and management of stroke rule out. History of prostate cancer. #S/p sigmoid colectomy with low pelvic anastomosis post op Day 1 #Likely due to sigmoid colon invasive adenocarcinoma per pathology report #GI bleed Patient says for the past few months he has bright red blood upon wiping every few days. Patient also had an abdomen/pelvis CT last year April which showed a sigmoid mass suspicious for neoplasm and colonoscopy on 08/19/2024 showed an partially obstructing mass. F/U with PSA in AM. 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 Plan: -HOLDING aspirin and plavix -CONTINUE TO KEEP PATIENT NPO -Incentive Spirometer -Pain management as needed -Patient underwent sigmoid colectomy with low pelvic anastomosis for sigmoid colon invasive adenocarcinoma performed by surgeon, Dr Jade today without complication -PT evaluation stated that we need home health occupational therapy to address his limitations with fine motor skills in left upper extremity post CVA. ?GI, Dr. Orozco consulted. Appreciate recommendations. -General surgery consulted, appreciate recommendations, Dr. Jade. #MADNO, pre-renal Patient's Cr increased to 1.5 from 0.8 which is a significant increase. Given BUN/Cr 7 which is concerning for intrinsic renal failure. Continue to given fluids, potassium w/ Dextrose. Likely given NPO and surgery. DDx: pre-renal vs obstructive given history of BPH, consider bladder scan if no output. Plan -consider bladder scan -potassium /w dextrose -consider electrolytes. #Acute R parietal lobe infarct #History of right parietal infarct 05/12/2024 Patient presented with left facial numbness and left arm tingling. On exam patient had mild slurred speech, left facial tingling and left arm tingling. Today, improved as compared to admission NIHSS score of 2. Previous echo on file showed negative PFO and ASD (05/12/2024). This is patient's third stroke -Head CT negative for acute hemorrhage, mass effect or midline shift. Head/neck CTA negative for significant neck arterial stenosis and cerebral large vessel arterial occlusions. MRI brain 10 mm acute infarct right parietal lobe Plan: - Plavix 75mg PO qd and Aspirin 81 mg Qday-HOLDING tumor resection in colon - PT/OT referrals placed--> HH, pending major surgey now - PRN Acetaminophen 650mg to avoid hyperthermia - Labetalol 10 Mg IV Q 10 minutes as needed for SBP >220, restarted home medication, out of permissive HTN window home meds resumed - Dr Diop consulted, pending in-house Neurology recommendations #Essential hypertension #Hyperlipidemia On admission BP 158/79. Home medication losartan 25 Mg p.o. daily, Coreg 6.25 Mg p.o. twice daily and amlodipine 10 Mg p.o. daily Home medication atorvastatin 80 Mg p.o. every afternoon Plan: ?Atorvastatin 40 Mg p.o. HS -Resumed Losartan 25 mg QDay -Resume Coreg 6.25 mg PO -Holding amlodipine 10 mg HS -out of window for permissive for permissive HTN #Elevated PSA -PSA 7.21 Plan: -Outpatient follow up #History of prostate cancer s/p radiation September 2012 in remission Health maintenance: Disposition: Patient underwent sigmoid colectomy with low pelvic anastomosis. Postop pain management. Diet: N.p.o. s/p colectomy day 1, per Dr. Jade Lines: pIVs, tele box GI Prophylaxis: Famotidine 20 mg IV BID Thrombo Prophylaxis: SCDs Code status: FULL CODE - The patient's plan was discussed with attending Dr. Julio and senior residents Dr. Jaspreet Wilson MD PGY1 Internal Medicine Attending Provider Attestation/Addendum I have examined the patient, reviewed labs and imaging findings, discussed the case with the resident(s), and reviewed entered orders. I agree with the plan of care as outlined in this note, with these additional summaries/recommendations: Patient seen at bedside. No acute overnight events. Patient is POD #1 s/p ex lap with sigmoid colectomy. He reports his pain is currently controlled. Denies having BM or passing gas. Colonoscopy revealed malignant partially obstructing tumor in the sigmoid colon. CEA level within normal limits 1.4. PSA 7.21. Biopsy results returned from colonoscopy showing INVASIVE ADENOCARCINOMA which is well-differentiated. Patient diagnosed with acute CVA on admission as well. MRI revealed 10 mm acute infract right parietal lobe. Echocardiogram with negative bubble study. Continue statin therapy. Plavix and aspirin currently on hold given surgery and will resume when able. Patient updated on the plan and in agreement. Repeat hematology and chemistry panel in AM. Dr. Julio
--- NOTE | 2024-08-26 15:12 | PD.SURPROG ---
Documentation for date of: 08/26/24 Subjective Subjective Narrative: Patient is seen and examined. He is complaining of incisional pain, controlled with pain medication. He denies nausea or vomiting. He has not passed flatus or bowel movement Exam Vital Signs Temp Pulse Resp BP Pulse Ox O2 Del Method O2 Flow Rate 97.4 F 62 18 153/67 H 96 Room Air 2 08/26/24 12:00 08/26/24 12:00 08/26/24 12:00 08/26/24 12:00 08/26/24 12:00 08/26/24 12:08/25/24 17:00 Constitutional Constitutional: no acute distress Routine Abdominal Exam Comments: Abdomen is soft and mildly distended. No bowel sounds today. Incision with dressings clean, dry and intact Assessment & Plan Assessment Additional comments: Postop day #1 status post exploratory laparotomy with sigmoid colectomy Plan Keep n.p.o. Continue IV fluids. Use incentive spirometer and increase ambulation. Will DC Wharton catheter tomorrow Procedures Procedures Exploratory laparotomy, sigmoid colectomy with low pelvic anastomosis
[2024-08-26] MEDS: ATORVASTATIN CALCIUM 20 MG TABLET 40 MG PO (20:15)
--- NOTE | 2024-08-26 21:10 | PD.NEUROPROG ---
Documentation for date of: 08/26/24 Subjective Subjective Interval history: Patient was seen in [facility] today, continues to improve in his left facial and UE weakness. No headache or dz reported. Patient underwent surgery for sigmoid colectomy and is doing well. Exam - Neurology Vital Signs Temp Pulse Resp BP Pulse Ox O2 Del Method O2 Flow Rate 97.4 F 117 H 18 143/76 H 97 Nasal Cannula 2 08/26/24 16:00 08/26/24 16:00 08/26/24 16:00 08/26/24 16:00 08/26/24 16:00 08/26/24 16:00 08/26/24 16:00 Narrative Exam GENERAL APPEARANCE: Well hydrated, well-nourished in no acute distress. HEENT: Normocephalic, atraumatic, extraocular movements intact. Pupils: Equal reacting to light and accommodation NECK: Supple, no JVD or bruits. CARDIOVASULAR: Heart: S1, S2 heard, regular without S3-S4 or murmur no rubs or gallops. LUNGS/CHEST: Clear to auscultation bilaterally. No rails, rhonchi, or wheezing. Normal inspection. ABDOMEN: Soft, nontender normal bowel sounds heard EXTREMITIES: Normal inspection and palpation. No edema, clubbing or cyanosis. SKIN: Warm and dry without rashes. Normal inspection. MUSCULOSKELETAL: No cervical, thoracic, lumbar or midline bony tenderness. Normal inspection. NEURO: Alert, awake and oriented x3. Cranial nerves: II through XII grossly intact with exception of improving left facial weakness of upper motor neuron type. Speech and language: Normal with no dysarthria or dysphasia. Motor system: Tone and bulk: Normal: Strength: 5 out of 5 in all 4 extremities; mild left pronator drift noted. Deep tendon reflexes: 2+ bilaterally symmetrical. Plantar reflex: Downgoing bilaterally. Sensory system: Intact to all modalities of sensation bilaterally. Coordination: Intact to mzewwi-eggu-dooyd and yfqk-vqvs-uqol test bilaterally. No ataxia, but mild dysmetria and dysdiadochokinesia noted in the left upper extremity. No intention tremors noted. Gait: Not tested. No signs of meningeal irritation noted. PSYCHIATRIC: Normal mood and affect. Objective Labs 08/26/24 05:24 08/26/24 05:24 Labs: Laboratory Results - last 24 hr 08/26/24 05:24 WBC 11.0 H D RBC 4.32 L Hgb 12.9 L Hct 38.2 L MCV 88 MCH 29.9 MCHC 33.8 RDW Std Deviation 42.4 Plt Count 193 Neut % (Auto) 89 H Lymph % (Auto) 7 L [place] % (Auto) 4 Eos % (Auto) 0 Baso % (Auto) 0 Neut # (Auto) 9.7 H Lymph # (Auto) 0.7 L [place] # (Auto) 0.4 Eos # (Auto) 0.0 Baso # (Auto) 0.0 Immature Gran # (Auto) 0.06 H Absolute Nucleated RBC 0.00 Immature Gran % 1 H Nucleated RBC % 0 Sodium 136 Potassium 4.4 Chloride 100 Carbon Dioxide 26.2 Anion Gap 10 BUN 11 Creatinine 1.5 H D Estim Creat Clear Calc 42.1 L eGFR 46 L BUN/Creatinine Ratio 7 L Glucose 137 H D Calculated Osmolality 273 L Calcium 8.9 Corrected Calcium 9.0 Phosphorus 3.6 Magnesium 1.9 Total Bilirubin 0.8 AST 11 ALT 9 L Alkaline Phosphatase 75 Total Protein 6.3 Albumin 3.9 Globulin 2.4 Albumin/Globulin Ratio 1.6 Assessment & Plan Assessment and plan (1) Malignant neoplasm of sigmoid colon: Status: Acute Assessment and plan: Status post sigmoid colectomy. Patient has been off of antiplatelets since admission. Pathology confirmed adenocarcinoma (2) Acute CVA (cerebrovascular accident): Status: Acute Assessment and plan: mri Brain showed acute infarct in the right parietal area. improving in deficit: left facial and UE weakness Continue with BP control and statin hold off on antiplatelet agents because of GI bleeding. Neurologically stable (3) Essential (primary) hypertension: Status: Acute Assessment and plan: continue Losartan and Carvedilol (4) Hyperlipidemia: Status: Acute Assessment and plan: continue with statin
--- NOTE | 2024-08-26 21:55 | ESPR_ITS ---
Documentation for date of: 08/26/24 Subjective Subjective Interval history: No nausea vomiting no passage of flatus no bowel movement Exam Vital Signs Temp Pulse Resp BP Pulse Ox O2 Del Method O2 Flow Rate 97.4 F 117 H 18 143/76 H 97 Nasal Cannula 2 08/26/24 16:00 08/26/24 16:00 08/26/24 16:00 08/26/24 16:00 08/26/24 16:00 08/26/24 16:00 08/26/24 16:00 Objective Labs 08/26/24 05:24 08/26/24 05:24 Labs: Laboratory Results - last 24 hr 08/26/24 05:24 WBC 11.0 H D RBC 4.32 L Hgb 12.9 L Hct 38.2 L MCV 88 MCH 29.9 MCHC 33.8 RDW Std Deviation 42.4 Plt Count 193 Neut % (Auto) 89 H Lymph % (Auto) 7 L [place] % (Auto) 4 Eos % (Auto) 0 Baso % (Auto) 0 Neut # (Auto) 9.7 H Lymph # (Auto) 0.7 L [place] # (Auto) 0.4 Eos # (Auto) 0.0 Baso # (Auto) 0.0 Immature Gran # (Auto) 0.06 H Absolute Nucleated RBC 0.00 Immature Gran % 1 H Nucleated RBC % 0 Sodium 136 Potassium 4.4 Chloride 100 Carbon Dioxide 26.2 Anion Gap 10 BUN 11 Creatinine 1.5 H D Estim Creat Clear Calc 42.1 L eGFR 46 L BUN/Creatinine Ratio 7 L Glucose 137 H D Calculated Osmolality 273 L Calcium 8.9 Corrected Calcium 9.0 Phosphorus 3.6 Magnesium 1.9 Total Bilirubin 0.8 AST 11 ALT 9 L Alkaline Phosphatase 75 Total Protein 6.3 Albumin 3.9 Globulin 2.4 Albumin/Globulin Ratio 1.6 Impressions Impression: # to sigmoid colon carcinoma status post sigmoid colectomy and primary anastomosis continue current management Assessment & Plan A&P Narrative # Sigmoid colon mass Case discussed with internal medicine team Clear liquid diet GoLytely prep Colonoscopy tentatively scheduled for tomorrow morning if the patient is clear CEA level Other medical problems include # 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
[2024-08-27] VITALS (9 sets, daily range): BP systolic 138–157; BP diastolic 64–88; PULSE 62–65; RESP 14–19; TEMP 36.2–36.8; O2SAT 95–98
[2024-08-27] MEDS: KCL 20 mEq/L in D5-1/2NS 20 MEQ/1,000 ML BAG 60 MEQ IV ×2 (00:10→17:07)
[2024-08-27] MEDS: CEFOXITIN 2 GM in Sterile Water 10 ML IV (05:10)
[2024-08-27 06:28] LABS: Basophils % (Auto) 0 % (0-2.5); Eosinophils % (Auto) 0 % (0-10); Hematocrit 38.3 % (41.0-53.0); Hemoglobin 12.6 g/dL (13.5-16.0); Immature Granulocytes % (Auto) 1 % (0-0); Immature Granulocytes Auto 0.05 Thou/mm3 (0.00-0.00); Lymphocytes # (Auto) 0.8 Thou/mm3 (1.0-4.8); Lymphocytes % (Auto) 8 % (10-50); Mean Corpuscular HGB Conc 32.9 g/dl (31.0-37.0); Mean Corpuscular Hemoglobin 29.5 pg (25.0-35.0); Mean Corpuscular Volume 90 fL (80-100); Monocytes # (Auto) 0.6 Thou/mm3 (0.0-0.8); Monocytes % (Auto) 7 % (0-12); Neutrophils # (Auto) 8.2 Thou/mm3 (1.8-7.7); Neutrophils % (Auto) 85 % (37-80); Nucleated Red Blood Cell % 0 /100 WBC (0); Platelet Count 192 Thou/mm3 (140-440); RDW Standard Deviation 44.6 fL (35.1-43.9); Red Blood Count 4.27 Miln/mm3 (4.50-5.90); White Blood Count 9.7 Thou/mm3 (3.8-10.6)
[2024-08-27 07:26] LABS: Alanine Aminotransferase 9 U/L (10-49); Albumin, Serum 4.1 gm/dL (3.4-4.8); Albumin/Globulin Ratio 1.7 (1.2-2.2); Alkaline Phosphatase 77 U/L (46-116); Anion Gap 7 (7-16); Aspartate Amino Transferase 11 U/L (0-34); BUN/Creatinine Ratio 10 Ratio (12-20); Bilirubin,Total 0.7 mg/dL (0.3-1.2); Blood Urea Nitrogen 8 mg/dL (9-23); Carbon Dioxide 28.4 mMol/L (20.0-31.0); Chloride 101 mMol/L (98-107); Creatinine (Component) 0.8 mg/dL (0.6-1.3); Globulin 2.4 gm/dL (2.3-3.5); Glucose 127 mg/dL (74-106); Osmolality,Calculated 272 (275-295); Phosphorous 1.7 mg/dL (2.4-5.1); Potassium 4.4 mMol/L (3.4-5.1); Sodium 136 mMol/L (136-145); Total Protein 6.5 gm/dL (5.7-8.2); eGFR > 60 See Note
[2024-08-27] MEDS: FAMOTIDINE INJ 10 MG/ML VIAL 2 ML 20 MG IVP (08:41)
[2024-08-27] MEDS: carVEDILOL 3.125 MG TABLET 6.25 MG PO ×2 (08:41→17:08)
[2024-08-27] MEDS: NAPH,KPH MBDB 1 PACKET (1.5 GM) PO (08:41)
[2024-08-27] MEDS: DOCUSATE SOD 100 MG CAPSULE PO ×2 (08:42→20:22)
[2024-08-27] MEDS: ZINC SULFATE 220 MG CAPSULE PO (08:42)
[2024-08-27] MEDS: ASCORBIC ACID 250 MG TABLET 500 MG PO ×2 (08:42→20:22)
--- NOTE | 2024-08-27 08:58 | PC.NURSE ---
[facility]24 [facility] 0100 to 0700.
--- NOTE | 2024-08-27 09:45 | ESPR_ITS ---
Documentation for date of: 08/27/24 Subjective Subjective Interval history: No overnight. Patient is passing gas. No bowel movement yet. Patient will work towards removing louise catheter. Continue NPO. Patient noted to have an inflamed uvula. Pain 5/10. Post Op day 2 Exam Vital Signs Temp Pulse Resp BP Pulse Ox O2 Del Method O2 Flow Rate 98.1 F 65 18 149/65 H 97 Nasal Cannula 2 08/27/24 07:54 08/27/24 08:41 08/27/24 07:54 08/27/24 08:41 08/27/24 07:54 08/27/24 07:54 08/27/24 07:54 Narrative Exam General Appearance: Alert & Oriented X3, well-nourished male who is lying in bed in no acute distress HEENT: Skull symmetrical and atraumatic. Conjunctivae pink and moist. Pupils equal, round, reactive to light and accommodation (PERRL). External ear without lesion or discharge. Straight, nares patient, mucosa pink, no discharge. No thyroid nodule appreciated. No cervical lymphadenopathy. Cardio: Normal Rate and Rhythm with S1 and S2 heart sounds. Possible holoystolic murmur noted. No bruits on carotid auscultation. No peripheral edema or cyanosis. Lungs: Symmetric with good expansion. Chest and back non-tender. Breath sounds vesicular without crackles, wheezing or rhonchi Abdomen: Mild tenderness secondary to s/p tumor resection, Non-distended, Normal Reactive Bowel Sounds. Neuro: Alert, cooperative, oriented to person, place, and time. Speech clear. CN grossly intact. Upper motor strength 4/5 and Lower motor strength 5/5. Sensation intact. Left facial drop noted near nasol-labial, resolved. Objective Labs 08/29/24 04:45 08/29/24 04:45 Labs: Laboratory Results - last 24 hr 08/27/24 05:10 WBC 9.7 RBC 4.27 L Hgb 12.6 L Hct 38.3 L MCV 90 MCH 29.5 MCHC 32.9 RDW Std Deviation 44.6 H Plt Count 192 Neut % (Auto) 85 H Lymph % (Auto) 8 L [place] % (Auto) 7 Eos % (Auto) 0 Baso % (Auto) 0 Neut # (Auto) 8.2 H Lymph # (Auto) 0.8 L [place] # (Auto) 0.6 Eos # (Auto) 0.0 Baso # (Auto) 0.0 Immature Gran # (Auto) 0.05 H Absolute Nucleated RBC 0.00 Immature Gran % 1 H Nucleated RBC % 0 Sodium 136 Potassium 4.4 Chloride 101 Carbon Dioxide 28.4 Anion Gap 7 BUN 8 L Creatinine 0.8 D Estim Creat Clear Calc 79.0 eGFR > 60 BUN/Creatinine Ratio 10 L Glucose 127 H Calculated Osmolality 272 L Calcium 9.0 Corrected Calcium 9.0 Phosphorus 1.7 L Magnesium 2.0 Total Bilirubin 0.7 AST 11 ALT 9 L Alkaline Phosphatase 77 Total Protein 6.5 Albumin 4.1 Globulin 2.4 Albumin/Globulin Ratio 1.7 Quality Measures Quality Measures stroke Suspected type of Stroke: TIA Last known well (date): 08/16/24 Last known well (time): 20:00 Tenecteplase given: Reason(s) Tenecteplase not given: Acute bleeding diathesis (recent GI bleeding and is being worked up as an outpatient for colon CA per teleneurology) not given Rehab services: PT evaluation ordered VTE Prophylaxis: pharmaceutical Antithrombotic by day 2:: ordered and contraindicated (describe) (Currently contraindicated as major surgery right now ) Statin ordered: >75 y/o moderate or high intensity dose Anticoagulation ordered for A-fib or flutter (current or hx): not indicated Advance care planning discussed with:: patient Assessment & Plan Assessment Current Active Medications: Generic Name Dose Route Start Last Admin Trade Name Freq PRN Reason Stop Dose Admin Albuterol/Ipratropium 3 ml 08/16/24 23:14 Albuterol/Ipratropium (Duoneb) Rt Shelly 3 Ml Nebu INH 09/15/24 23:13 Q2HR PRN SHORTNESS OF BREATH OR WHEEZE Amlodipine Besylate 10 mg 08/27/24 13:00 Amlodipine Besylate 5 Mg Tablet PO 08/27/24 13:01 X1 ONE Ascorbic Acid 500 mg 08/25/24 21:00 08/27/24 08:42 Ascorbic Acid 250 Mg Tablet PO 09/24/24 20:59 500 mg BID RAGINI Administration Atorvastatin Calcium 40 mg 08/18/24 21:00 08/26/24 20:15 Atorvastatin Calcium 20 Mg Tablet PO 09/17/24 20:59 40 mg HS RAGINI Administration Benzocaine 1 lozenge 08/27/24 09:36 Benzocaine/Menthol 1 Lozenge PO 09/26/24 09:35 Q4HR PRN sore uvula Carvedilol 6.25 mg 08/20/24 08:00 08/27/24 08:41 Carvedilol 3.125 Mg Tablet PO 09/19/24 07:59 6.25 mg BIDWM RAGINI Administration Dextrose 25 ml 08/25/24 18:02 Dextrose 50%-Water Inj 50 Ml Syringe IV 09/24/24 18:01 Q15MIN PRN BG 50-70 responsive npo pt Dextrose 50 ml 08/25/24 18:02 Dextrose 50%-Water Inj 50 Ml Syringe IV 09/24/24 18:01 Q15MIN PRN BG <50 OR BG <70 & pt unresponsive Docusate Sodium 100 mg 08/25/24 21:00 08/27/24 08:42 Docusate Sod 100 Mg Capsule PO 09/24/24 20:59 100 mg BID RAGINI Administration Protocol Docusate Sodium 100 mg 08/27/24 09:45 Docusate Sod 100 Mg Capsule PO 09/26/24 09:44 BID RAGINI Protocol Famotidine 20 mg 08/27/24 09:00 08/27/24 08:41 Famotidine Inj 10 Mg/Ml Vial 2 Ml IVP 09/16/24 08:59 20 mg QDAY RAGINI Administration Glucagon 1 mg 08/25/24 18:02 Glucagon Inj 1 Mg Vial IM Q15MIN PRN BG <70, and no IV access Potassium Chloride/Dextrose/Sod Cl 20 meq in 1,000 mls @ 60 mls/hr 08/25/24 14:15 08/27/24 00:10 Kcl 20 Meq/L In D5-1/2ns IV 09/24/24 14:14 60 mls/hr .[id number] RAGINI Administration Cefoxitin Sodium 2 gm/ Sterile 10 mls @ 120 mls/hr 08/26/24 22:00 08/27/24 05:10 Water IV 09/01/24 17:59 120 mls/hr Q8HR RAGINI Administration Losartan Potassium 25 mg 08/20/24 09:00 08/25/24 16:03 Losartan Potassium 25 Mg Tablet PO 09/19/24 08:59 Not Given QDAY RAGINI Morphine Sulfate 3 mg 08/25/24 15:01 Morphine Sulf Inj 10 Mg/Ml Vial IVP 08/30/24 15:00 Q3H PRN PAIN Ondansetron HCl 4 mg 08/25/24 15:01 08/26/24 05:25 Ondansetron Inj 2 Mg/Ml Inj 2 Ml IV 09/24/24 15:00 4 mg Q6HR PRN Administration NAUSEA OR VOMITING Protocol Zinc Sulfate 220 mg 08/26/24 09:00 08/27/24 08:42 Zinc Sulfate 220 Mg Capsule PO 09/25/24 08:59 220 mg QDAY RAGINI Administration Plan This patient is an 84-year-old male with past medical history significant for essential hypertension, hyperlipidemia, chronic stroke, history of prostate cancer s/p radiation September 2012 in remission and sigmoid colon mass for investigation presenting today with a chief complaint of left face tingling and left arm tingling. Patient will be admitted for workup and management of stroke rule out. History of prostate cancer. #S/p sigmoid colectomy with low pelvic anastomosis post op Day 2 #Likely due to sigmoid colon invasive adenocarcinoma per pathology report #GI bleed, resolved. Patient says for the past few months he has bright red blood upon wiping every few days. Patient also had an abdomen/pelvis CT last year April which showed a sigmoid mass suspicious for neoplasm and colonoscopy on 08/19/2024 showed an partially obstructing mass. F/U with PSA in AM. 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 Plan: -HOLDING aspirin and plavix -CONTINUE TO KEEP PATIENT NPO -Incentive Spirometer -Pain management as needed -Patient underwent sigmoid colectomy with low pelvic anastomosis for sigmoid colon invasive adenocarcinoma performed by surgeon, Dr Jade today without complication -PT evaluation stated that we need home health occupational therapy to address his limitations with fine motor skills in left upper extremity post CVA. ?GI, Dr. Orozco consulted. Appreciate recommendations. -General surgery consulted, appreciate recommendations, Dr. Jade. #Acute R parietal lobe infarct #History of right parietal infarct 05/12/2024 Patient presented with left facial numbness and left arm tingling. On exam patient had mild slurred speech, left facial tingling and left arm tingling. Today, improved as compared to admission NIHSS score of 2. Previous echo on file showed negative PFO and ASD (05/12/2024). This is patient's third stroke -Head CT negative for acute hemorrhage, mass effect or midline shift. Head/neck CTA negative for significant neck arterial stenosis and cerebral large vessel arterial occlusions. MRI brain 10 mm acute infarct right parietal lobe Plan: - Plavix 75mg PO qd and Aspirin 81 mg Qday-HOLDING tumor resection in colon -Compression Device - PT/OT referrals placed--> , pending major surgery now - PRN Acetaminophen 650mg to avoid hyperthermia - Labetalol 10 Mg IV Q 10 minutes as needed for SBP >220, restarted home medication, out of permissive HTN window home meds resumed - Dr Diop consulted, pending in-house Neurology recommendations #Essential hypertension #Hyperlipidemia On admission BP 158/79. Home medication losartan 25 Mg p.o. daily, Coreg 6.25 Mg p.o. twice daily and amlodipine 10 Mg p.o. daily Home medication atorvastatin 80 Mg p.o. every afternoon Plan: ?Atorvastatin 40 Mg p.o. HS -Amlodipine 10 mg X 1 -HOLDing given MANOD-Losartan 25 mg QDay -Resume Coreg 6.25 mg PO -Holding amlodipine 10 mg HS -out of window for permissive for permissive HTN #Elevated PSA -PSA 7.21 Plan: -Outpatient follow up #MANDO, pre-renal, resolved. Patient's Cr increased to 1.5 from 0.8 which is a significant increase. Given BUN/Cr 7 which is concerning for intrinsic renal failure. Continue to given fluids, potassium w/ Dextrose. Likely given NPO and surgery. DDx: pre-renal vs obstructive given history of BPH, consider bladder scan if no output. Plan -Restart Losartan tomorrow #History of prostate cancer s/p radiation September 2012 in remission Health maintenance: Disposition: Patient underwent sigmoid colectomy with low pelvic anastomosis. Postop pain management. Diet: N.p.o. s/p colectomy day 1, per Dr. Jade Lines: pIVs, tele box GI Prophylaxis: Famotidine 20 mg IV BID Thrombo Prophylaxis: SCDs Code status: FULL CODE - The patient's plan was discussed with attending Dr. Julio and senior residents Dr. Jaspreet Wilson MD PGY1 Internal Medicine Senior Resident Attestation: I discussed with and supervised the internal combustion engineer physician involved in the care of this patient. I personally saw and examined the patient and discussed the assessment and plan with the entire medicine team, including my attending. I agree with the assessment and plan as documented above. [Patient seen and examined. No events overnight. Postop day 2. Patient is passing gas. No bowel movements. Still NPO. Following surgical recommendations. Continue to hold dual antiplatelet therapy for strokes due to being postop.] - Patient's care was discussed with my attending physician. Regulo Vogel MD Internal Medicine PGY-3 Attending Provider Attestation/Addendum I have examined the patient, reviewed labs and imaging findings, discussed the case with the resident(s), and reviewed entered orders. I agree with the plan of care as outlined in this note, with these additional summaries/recommendations: Patient seen at bedside. No acute overnight events. Patient endorses 5/10 abdominal pain at this time but overall states his pain is controlled. Patient is POD #2 s/p ex lap with sigmoid colectomy for malignant sigmoid tumor. Denies having BM but does endorse passing gas. Colonoscopy revealed malignant partially obstructing tumor in the sigmoid colon. CEA level within normal limits 1.4. PSA 7.21. Biopsy results returned from colonoscopy showing INVASIVE ADENOCARCINOMA which is well-differentiated. Patient diagnosed with acute CVA on admission as well. MRI revealed 10 mm acute infract right parietal lobe. Echocardiogram with negative bubble study. Continue statin therapy. Plavix and aspirin currently on hold given surgery and will resume when able. Patient updated on the plan and in agreement. Repeat hematology and chemistry panel in AM. Dr. Julio
--- NOTE | 2024-08-27 09:45 | PD.SURPROG ---
Documentation for date of: 08/27/24 Subjective Subjective Narrative: Patient is seen and examined. He is resting comfortably. Pain is controlled. He denies nausea or vomiting. He has not had bowel movement, just started passing some flatus Exam Vital Signs Temp Pulse Resp BP Pulse Ox O2 Del Method O2 Flow Rate 98.1 F 65 18 149/65 H 97 Nasal Cannula 2 08/27/24 07:54 08/27/24 08:41 08/27/24 07:54 08/27/24 08:41 08/27/24 07:54 08/27/24 07:54 08/27/24 07:54 Constitutional Constitutional: no acute distress Routine Abdominal Exam Abdominal: Present soft, tenderness (Mohini-incisional tenderness. Incision with dressings clean, dry and intact) and distended (Minimally distended); Absent normoactive bowel sounds Assessment & Plan Assessment Additional comments: Postop day #2 status post exploratory laparotomy with sigmoid colectomy Plan Keep n.p.o. with IV fluids and IV antibiotics until return of GI function. DC Wharton catheter today. Increase ambulation Procedures Procedures Exploratory laparotomy, sigmoid colectomy with low pelvic anastomosis
[2024-08-27] MEDS: amLODIPine BESYLATE 5 MG TABLET 10 MG PO (12:43)
[2024-08-27] MEDS: CEFOXITIN 2 GM in SODIUM CHLORIDE 0.9% (P) 50 ML IV ×2 (13:51→21:39)
--- NOTE | 2024-08-27 14:20 | PC.LAC ---
Pt urinate 250cc pot THERESA louise
[2024-08-27] MEDS: ATORVASTATIN CALCIUM 20 MG TABLET 40 MG PO (20:22)
--- NOTE | 2024-08-27 20:45 | PD.IMPROG ---
Documentation for date of: 08/27/24 Subjective Subjective Interval history: No passage of flatus no bowel movement no nausea vomiting Exam Vital Signs Temp Pulse Resp BP Pulse Ox O2 Del Method O2 Flow Rate 97.2 F 65 17 138/64 H 96 Nasal Cannula 2 08/27/24 20:00 08/27/24 20:00 08/27/24 20:00 08/27/24 20:00 08/27/24 20:00 08/27/24 20:00 08/27/24 20:00 Objective Labs 08/27/24 05:10 08/27/24 05:10 Labs: Laboratory Results - last 24 hr 08/27/24 05:10 WBC 9.7 RBC 4.27 L Hgb 12.6 L Hct 38.3 L MCV 90 MCH 29.5 MCHC 32.9 RDW Std Deviation 44.6 H Plt Count 192 Neut % (Auto) 85 H Lymph % (Auto) 8 L [place] % (Auto) 7 Eos % (Auto) 0 Baso % (Auto) 0 Neut # (Auto) 8.2 H Lymph # (Auto) 0.8 L [place] # (Auto) 0.6 Eos # (Auto) 0.0 Baso # (Auto) 0.0 Immature Gran # (Auto) 0.05 H Absolute Nucleated RBC 0.00 Immature Gran % 1 H Nucleated RBC % 0 Sodium 136 Potassium 4.4 Chloride 101 Carbon Dioxide 28.4 Anion Gap 7 BUN 8 L Creatinine 0.8 D Estim Creat Clear Calc 79.0 eGFR > 60 BUN/Creatinine Ratio 10 L Glucose 127 H Calculated Osmolality 272 L Calcium 9.0 Corrected Calcium 9.0 Phosphorus 1.7 L Magnesium 2.0 Total Bilirubin 0.7 AST 11 ALT 9 L Alkaline Phosphatase 77 Total Protein 6.5 Albumin 4.1 Globulin 2.4 Albumin/Globulin Ratio 1.7 Impressions Impression: # Status post exploratory laparotomy sigmoid colectomy for obstructing sigmoid colon carcinoma Continue current management Keep patient n.p.o. Assessment & Plan A&P Narrative # Sigmoid colon mass Case discussed with internal medicine team Clear liquid diet GoLytely prep Colonoscopy tentatively scheduled for tomorrow morning if the patient is clear CEA level Other medical problems include # 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
--- NOTE | 2024-08-27 23:05 | VVPN_ITS ---
Telemedicine visit statement This visit was conducted with the use of virtual visit was obtained on 08/27/24 at 2305. Documentation for date of: 08/27/24 Subjective Subjective Interval history: Patient is in medtelemetry. His left facial droop and left UE weakness are resolving, able to ambulate without any assistance. No new symptoms reported. Tolerating oral diet well. Slept well overnight.No more bleeding WI. Virtual exam Vital Signs Temp Pulse Resp BP Pulse Ox O2 Del Method O2 Flow Rate 97.2 F 65 17 138/64 H 96 Nasal Cannula 2 08/27/24 20:00 08/27/24 20:00 08/27/24 20:00 08/27/24 20:00 08/27/24 20:00 08/27/24 20:00 08/27/24 20:00 Objective Labs 08/27/24 05:10 08/27/24 05:10 Labs: Laboratory Results - last 24 hr 08/27/24 05:10 WBC 9.7 RBC 4.27 L Hgb 12.6 L Hct 38.3 L MCV 90 MCH 29.5 MCHC 32.9 RDW Std Deviation 44.6 H Plt Count 192 Neut % (Auto) 85 H Lymph % (Auto) 8 L [place] % (Auto) 7 Eos % (Auto) 0 Baso % (Auto) 0 Neut # (Auto) 8.2 H Lymph # (Auto) 0.8 L [place] # (Auto) 0.6 Eos # (Auto) 0.0 Baso # (Auto) 0.0 Immature Gran # (Auto) 0.05 H Absolute Nucleated RBC 0.00 Immature Gran % 1 H Nucleated RBC % 0 Sodium 136 Potassium 4.4 Chloride 101 Carbon Dioxide 28.4 Anion Gap 7 BUN 8 L Creatinine 0.8 D Estim Creat Clear Calc 79.0 eGFR > 60 BUN/Creatinine Ratio 10 L Glucose 127 H Calculated Osmolality 272 L Calcium 9.0 Corrected Calcium 9.0 Phosphorus 1.7 L Magnesium 2.0 Total Bilirubin 0.7 AST 11 ALT 9 L Alkaline Phosphatase 77 Total Protein 6.5 Albumin 4.1 Globulin 2.4 Albumin/Globulin Ratio 1.7 Assessment & Plan Assessment (1) Acute CVA (cerebrovascular accident): mri Brain showed acute infarct in the right parietal area. improving in deficit: left facial and UE weakness Continue with BP control and statin hold off on antiplatelet agents because of GI bleeding (2) Essential (primary) hypertension: continue Losartan and Carvedilol (3) Hyperlipidemia: continue with statin (4) Malignant neoplasm of sigmoid colon: colonoscopy : showed hemorrhoids, divericulitis and malignant sigmoid colon s/p sigmoid colectomy. path confirmed adenoca
[2024-08-28] VITALS (9 sets, daily range): BP systolic 131–157; BP diastolic 60–80; PULSE 63–78; RESP 16–18; TEMP 36.1–36.8; O2SAT 95–97; BMI 31.2; BMI 31.6
[2024-08-28] MEDS: CEFOXITIN 2 GM in SODIUM CHLORIDE 0.9% (P) 50 ML IV ×3 (05:12→21:45)
[2024-08-28 06:20] LABS: Basophils % (Auto) 0 % (0-2.5); Eosinophils # (Auto) 0.1 Thou/mm3 (0.0-0.5); Eosinophils % (Auto) 1 % (0-10); Hematocrit 36.3 % (41.0-53.0); Immature Granulocytes % (Auto) 1 % (0-0); Immature Granulocytes Auto 0.05 Thou/mm3 (0.00-0.00); Lymphocytes # (Auto) 1.4 Thou/mm3 (1.0-4.8); Lymphocytes % (Auto) 14 % (10-50); Mean Corpuscular HGB Conc 33.1 g/dl (31.0-37.0); Mean Corpuscular Hemoglobin 29.4 pg (25.0-35.0); Mean Corpuscular Volume 89 fL (80-100); Monocytes # (Auto) 0.6 Thou/mm3 (0.0-0.8); Monocytes % (Auto) 6 % (0-12); Neutrophils % (Auto) 80 % (37-80); Nucleated Red Blood Cell % 0 /100 WBC (0); Platelet Count 167 Thou/mm3 (140-440); RDW Standard Deviation 44.3 fL (35.1-43.9); Red Blood Count 4.08 Miln/mm3 (4.50-5.90)
[2024-08-28 07:17] LABS: Alanine Aminotransferase 9 U/L (10-49); Albumin, Serum 3.5 gm/dL (3.4-4.8); Albumin/Globulin Ratio 1.4 (1.2-2.2); Alkaline Phosphatase 68 U/L (46-116); Anion Gap 6 (7-16); Aspartate Amino Transferase 15 U/L (0-34); BUN/Creatinine Ratio 8 Ratio (12-20); Bilirubin,Total 0.7 mg/dL (0.3-1.2); Blood Urea Nitrogen 6 mg/dL (9-23); Calcium (Corrected) 9.4 mg/dL (8.5-10.1); Carbon Dioxide 27.7 mMol/L (20.0-31.0); Chloride 103 mMol/L (98-107); Creatinine (Component) 0.8 mg/dL (0.6-1.3); Globulin 2.5 gm/dL (2.3-3.5); Glucose 111 mg/dL (74-106); Osmolality,Calculated 272 (275-295); Phosphorous 1.7 mg/dL (2.4-5.1); Potassium 4.2 mMol/L (3.4-5.1); Sodium 137 mMol/L (136-145); eGFR > 60 See Note
[2024-08-28] MEDS: carVEDILOL 3.125 MG TABLET 6.25 MG PO ×2 (09:02→19:09)
[2024-08-28] MEDS: DOCUSATE SOD 100 MG CAPSULE PO ×2 (09:03→20:42)
[2024-08-28] MEDS: ASCORBIC ACID 250 MG TABLET 500 MG PO ×2 (09:03→20:42)
[2024-08-28] MEDS: FAMOTIDINE INJ 10 MG/ML VIAL 2 ML 20 MG IVP (09:04)
[2024-08-28] MEDS: ZINC SULFATE 220 MG CAPSULE PO (09:04)
[2024-08-28] MEDS: POT PHOS 15 mMol in NS 250 ML 15 MMOL/250 ML BAG 62.5 MMOL IV (09:46)
[2024-08-28] MEDS: ENOXAPARIN SOD INJ 40 MG/0.4 ML SYRINGE SC (09:50)
--- NOTE | 2024-08-28 11:27 | PC.SS ---
Rounding: Plan to advance diet to full liquid today
--- NOTE | 2024-08-28 11:56 | ESPR_ITS ---
Documentation for date of: 08/28/24 Subjective Subjective Narrative: Patient is seen and examined. He is feeling much better. He has had multiple bowel movements Exam Vital Signs Temp Pulse Resp BP Pulse Ox O2 Del Method O2 Flow Rate 97.2 F 66 18 138/64 H 96 Nasal Cannula 1.5 08/28/24 08:00 08/28/24 09:02 08/28/24 08:00 08/28/24 09:02 08/28/24 08:00 08/28/24 08:00 08/28/24 08:00 Constitutional Constitutional: no acute distress Routine Abdominal Exam Abdominal: Present soft, normoactive bowel sounds and tenderness (Mild fanny- incisional tenderness. Incisions are clean, dry and intact); Absent distended Assessment & Plan Assessment Additional comments: Postop day #3 status post exploratory laparotomy with sigmoid colectomy Plan Will start patient on clear liquids and Ensure supplements. Continue to hold aspirin and Plavix. Patient was started on Lovenox Procedures Procedures Exploratory laparotomy, sigmoid colectomy with low pelvic anastomosis
--- NOTE | 2024-08-28 13:30 | ESPR_ITS ---
Documentation for date of: 08/28/24 Subjective Subjective Interval history: No overnight events. Patient has flatulence and 5 bowel movements with some melena, secondary to major colectomy surgery from adenocarcinoma. Patient was started on clear liquid diet and Lovenox added for DVT prophylaxis. Exam Vital Signs Temp Pulse Resp BP Pulse Ox O2 Del Method O2 Flow Rate 97.0 F 75 18 142/73 H 95 Nasal Cannula 1.5 08/28/24 12:00 08/28/24 12:00 08/28/24 12:00 08/28/24 12:00 08/28/24 12:08/28/24 12:00 08/28/24 12:00 Narrative Exam General Appearance: Alert & Oriented X3, well-nourished male who is lying in bed in no acute distress HEENT: Skull symmetrical and atraumatic. Conjunctivae pink and moist. Pupils equal, round, reactive to light and accommodation (PERRL). External ear without lesion or discharge. Straight, nares patient, mucosa pink, no discharge. No thyroid nodule appreciated. No cervical lymphadenopathy. Cardio: Normal Rate and Rhythm with S1 and S2 heart sounds. Possible holoystolic murmur noted. No bruits on carotid auscultation. No peripheral edema or cyanosis. Lungs: Symmetric with good expansion. Chest and back non-tender. Breath sounds vesicular without crackles, wheezing or rhonchi Abdomen: Mild tenderness secondary to s/p tumor resection, Non-distended, Normal Reactive Bowel Sounds. Neuro: Alert, cooperative, oriented to person, place, and time. Speech clear. CN grossly intact. Upper motor strength 4/5 and Lower motor strength 5/5. Sensation intact. Left facial drop noted near nasol-labial, resolved. Objective Labs 08/29/24 04:45 08/29/24 04:45 Labs: Laboratory Results - last 24 hr 08/28/24 05:16 WBC 10.0 RBC 4.08 L Hgb 12.0 L Hct 36.3 L MCV 89 MCH 29.4 MCHC 33.1 RDW Std Deviation 44.3 H Plt Count 167 Neut % (Auto) 80 Lymph % (Auto) 14 [place] % (Auto) 6 Eos % (Auto) 1 Baso % (Auto) 0 Neut # (Auto) 8.0 H Lymph # (Auto) 1.4 [place] # (Auto) 0.6 Eos # (Auto) 0.1 Baso # (Auto) 0.0 Immature Gran # (Auto) 0.05 H Absolute Nucleated RBC 0.00 Immature Gran % 1 H Nucleated RBC % 0 Sodium 137 Potassium 4.2 Chloride 103 Carbon Dioxide 27.7 Anion Gap 6 L BUN 6 L Creatinine 0.8 Estim Creat Clear Calc 79.0 eGFR > 60 BUN/Creatinine Ratio 8 L Glucose 111 H Calculated Osmolality 272 L Calcium 9.0 Corrected Calcium 9.4 Phosphorus 1.7 L Magnesium 2.0 Total Bilirubin 0.7 AST 15 ALT 9 L Alkaline Phosphatase 68 Total Protein 6.0 Albumin 3.5 D Globulin 2.5 Albumin/Globulin Ratio 1.4 Quality Measures Quality Measures stroke Suspected type of Stroke: TIA Last known well (date): 08/16/24 Last known well (time): 20:00 Tenecteplase given: Reason(s) Tenecteplase not given: Acute bleeding diathesis (recent GI bleeding and is being worked up as an outpatient for colon CA per teleneurology) not given Rehab services: PT evaluation ordered and Speech Language Pathology eval ordered VTE Prophylaxis: pharmaceutical (Restarted after surgery ) Antithrombotic by day 2:: ordered (restarted after surgery ) Statin ordered: >75 y/o moderate or high intensity dose Anticoagulation ordered for A-fib or flutter (current or hx): not indicated Advance care planning discussed with:: patient Assessment & Plan Assessment Current Active Medications: Generic Name Dose Route Start Last Admin Trade Name Freq PRN Reason Stop Dose Admin Albuterol/Ipratropium 3 ml 08/16/24 23:14 Albuterol/Ipratropium (Duoneb) Rt Shelly 3 Ml Nebu INH 09/15/24 23:13 Q2HR PRN SHORTNESS OF BREATH OR WHEEZE Ascorbic Acid 500 mg 08/25/24 21:00 08/28/24 09:03 Ascorbic Acid 250 Mg Tablet PO 09/24/24 20:59 500 mg BID RAGINI Administration Atorvastatin Calcium 40 mg 08/18/24 21:00 08/27/24 20:22 Atorvastatin Calcium 20 Mg Tablet PO 09/17/24 20:59 40 mg HS RAGINI Administration Benzocaine 1 lozenge 08/27/24 09:36 Benzocaine/Menthol 1 Lozenge PO 09/26/24 09:35 Q4HR PRN sore uvula Carvedilol 6.25 mg 08/20/24 08:00 08/28/24 09:02 Carvedilol 3.125 Mg Tablet PO 09/19/24 07:59 6.25 mg BIDWM RAGINI Administration Dextrose 25 ml 08/25/24 18:02 Dextrose 50%-Water Inj 50 Ml Syringe IV 09/24/24 18:01 Q15MIN PRN BG 50-70 responsive npo pt Dextrose 50 ml 08/25/24 18:02 Dextrose 50%-Water Inj 50 Ml Syringe IV 09/24/24 18:01 Q15MIN PRN BG <50 OR BG <70 & pt unresponsive Docusate Sodium 100 mg 08/25/24 21:00 08/28/24 09:03 Docusate Sod 100 Mg Capsule PO 09/24/24 20:59 100 mg BID RAGINI Administration Protocol Enoxaparin Sodium 40 mg 08/28/24 09:15 08/28/24 09:50 Enoxaparin Sod Inj 40 Mg/0.4 Ml Syringe SC 09/11/24 09:14 40 mg QDAY RAGINI Administration Famotidine 20 mg 08/27/24 09:00 08/28/24 09:04 Famotidine Inj 10 Mg/Ml Vial 2 Ml IVP 09/16/24 08:59 20 mg QDAY RAGINI Administration Glucagon 1 mg 08/25/24 18:02 Glucagon Inj 1 Mg Vial IM Q15MIN PRN BG <70, and no IV access Cefoxitin Sodium 2 gm/ Sodium 50 mls @ 100 mls/hr 08/27/24 14:22 08/28/24 05:12 Chloride IV 09/01/24 17:59 100 mls/hr Q8HR RAGINI Administration Losartan Potassium 25 mg 08/20/24 09:00 08/25/24 16:03 Losartan Potassium 25 Mg Tablet PO 09/19/24 08:59 Not Given QDAY RAGINI Morphine Sulfate 3 mg 08/25/24 15:01 Morphine Sulf Inj 10 Mg/Ml Vial IVP 08/30/24 15:00 Q3H PRN PAIN Ondansetron HCl 4 mg 08/25/24 15:01 08/26/24 05:25 Ondansetron Inj 2 Mg/Ml Inj 2 Ml IV 09/24/24 15:00 4 mg Q6HR PRN Administration NAUSEA OR VOMITING Protocol Zinc Sulfate 220 mg 08/26/24 09:00 08/28/24 09:04 Zinc Sulfate 220 Mg Capsule PO 09/25/24 08:59 220 mg QDAY RAGINI Administration Plan This patient is an 84-year-old male with past medical history significant for essential hypertension, hyperlipidemia, chronic stroke, history of prostate cancer s/p radiation September 2012 in remission and sigmoid colon mass for investigation presenting today with a chief complaint of left face tingling and left arm tingling. Patient will be admitted for workup and management of stroke rule out. History of prostate cancer. #S/p sigmoid colectomy with low pelvic anastomosis post op Day 3 #Likely due to sigmoid colon invasive adenocarcinoma per pathology report #GI bleed, resolved. Patient says for the past few months he has bright red blood upon wiping every few days. Patient also had an abdomen/pelvis CT last year April which showed a sigmoid mass suspicious for neoplasm and colonoscopy on 08/19/2024 showed an partially obstructing mass. F/U with PSA in AM. 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 Plan: -HOLDING aspirin and plavix -Lovenox 40 mg SC Qday -Clear Liquid Diet -Incentive Spirometer -Pain management as needed -Patient underwent sigmoid colectomy with low pelvic anastomosis for sigmoid colon invasive adenocarcinoma performed by surgeon, Dr Jade today without complication -PT evaluation stated that we need home health occupational therapy to address his limitations with fine motor skills in left upper extremity post CVA. ?GI, Dr. Orozco consulted. Appreciate recommendations. -General surgery consulted, appreciate recommendations, Dr. Jade. #Acute R parietal lobe infarct #History of right parietal infarct 05/12/2024 Patient presented with left facial numbness and left arm tingling. On exam patient had mild slurred speech, left facial tingling and left arm tingling. Today, improved as compared to admission NIHSS score of 2. Previous echo on file showed negative PFO and ASD (05/12/2024). This is patient's third stroke -Head CT negative for acute hemorrhage, mass effect or midline shift. Head/neck CTA negative for significant neck arterial stenosis and cerebral large vessel arterial occlusions. MRI brain 10 mm acute infarct right parietal lobe Plan: - Plavix 75mg PO qd and Aspirin 81 mg Qday-HOLDING tumor resection in colon -Lovenox 40 mg SC QDay - PT/OT referrals placed--> HH, pending major surgery now - PRN Acetaminophen 650mg to avoid hyperthermia - Labetalol 10 Mg IV Q 10 minutes as needed for SBP >220, restarted home medication, out of permissive HTN window home meds resumed - Dr Diop consulted, pending in-house Neurology recommendations #Essential hypertension #Hyperlipidemia On admission BP 158/79. Home medication losartan 25 Mg p.o. daily, Coreg 6.25 Mg p.o. twice daily and amlodipine 10 Mg p.o. daily Home medication atorvastatin 80 Mg p.o. every afternoon Plan: ?Atorvastatin 40 Mg p.o. HS -Losartan 25 mg QDay -Coreg 6.25 mg PO -Holding amlodipine 10 mg HS -out of window for permissive for permissive HTN #Elevated PSA -PSA 7.21 Plan: -Outpatient follow up #MANDO, pre-renal, resolved. #History of prostate cancer s/p radiation September 2012 in remission Health maintenance: Disposition: Patient underwent sigmoid colectomy with low pelvic anastomosis. Postop pain management. Diet: Clear Liquid Diet colectomy day 3, per Dr. Jade Lines: pIVs, tele box GI Prophylaxis: Famotidine 20 mg IV BID Thrombo Prophylaxis: Lovenox Code status: FULL CODE - The patient's plan was discussed with attending Dr. Ramos and senior residents Dr. Jaspreet Wilson MD PGY1 Internal Medicine Senior Resident Attestation: I discussed with and supervised the financial services intern physician involved in the care of this patient. I personally saw and examined the patient and discussed the assessment and plan with the entire medicine team, including my attending. I agree with the assessment and plan as documented above. - Patient's care was discussed with my attending physician. Regulo Vogle MD Internal Medicine PGY-3 Attending Provider Attestation/Addendum I attest that I was physically present for the evaluation, physical examination, lab and imaging review of the patient with the residents. I discussed the case with the residents and agree with the findings and plans of care as documented above. At bedside today, patient is states she is feeling well and does not have new complaints. He had multiple bowel movements. Started on clear liquid diet, Lovenox for DVT prophylaxis. Holding aspirin and Plavix given recent surgery and concern for bleeding. Meliza Ramos MD
[2024-08-28] MEDS: ATORVASTATIN CALCIUM 20 MG TABLET 40 MG PO (20:42)
--- NOTE | 2024-08-28 22:01 | PD.IMPROG ---
Documentation for date of: 08/28/24 Subjective Subjective Interval history: Patient having bowel movements Diet has been advanced Abdomen positive bowel sounds Exam Vital Signs Temp Pulse Resp BP Pulse Ox O2 Del Method O2 Flow Rate 97.0 F 66 16 131/60 H 96 Nasal Cannula 1.5 08/28/24 20:00 08/28/24 20:00 08/28/24 20:00 08/28/24 20:00 08/28/24 20:00 08/28/24 20:00 08/28/24 12:00 Objective Labs 08/28/24 05:16 08/28/24 05:16 Labs: Laboratory Results - last 24 hr 08/28/24 05:16 WBC 10.0 RBC 4.08 L Hgb 12.0 L Hct 36.3 L MCV 89 MCH 29.4 MCHC 33.1 RDW Std Deviation 44.3 H Plt Count 167 Neut % (Auto) 80 Lymph % (Auto) 14 [place] % (Auto) 6 Eos % (Auto) 1 Baso % (Auto) 0 Neut # (Auto) 8.0 H Lymph # (Auto) 1.4 [place] # (Auto) 0.6 Eos # (Auto) 0.1 Baso # (Auto) 0.0 Immature Gran # (Auto) 0.05 H Absolute Nucleated RBC 0.00 Immature Gran % 1 H Nucleated RBC % 0 Sodium 137 Potassium 4.2 Chloride 103 Carbon Dioxide 27.7 Anion Gap 6 L BUN 6 L Creatinine 0.8 Estim Creat Clear Calc 79.0 eGFR > 60 BUN/Creatinine Ratio 8 L Glucose 111 H Calculated Osmolality 272 L Calcium 9.0 Corrected Calcium 9.4 Phosphorus 1.7 L Magnesium 2.0 Total Bilirubin 0.7 AST 15 ALT 9 L Alkaline Phosphatase 68 Total Protein 6.0 Albumin 3.5 D Globulin 2.5 Albumin/Globulin Ratio 1.4 Impressions Impression: # Sigmoid colectomy for obstructing well-differentiated adenocarcinoma of the sigmoid colon Advance diet Assessment & Plan A&P Narrative # Sigmoid colon mass Case discussed with internal medicine team Clear liquid diet GoLytely prep Colonoscopy tentatively scheduled for tomorrow morning if the patient is clear CEA level Other medical problems include # 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
--- NOTE | 2024-08-28 23:52 | ESPR_ITS ---
Documentation for date of: 08/28/24 Subjective Subjective Interval history: Patient was seen in [facility] today, continues to improve in his left facial and UE weakness. No headache or dz reported. Patient underwent surgery for sigmoid colectomy and is doing well. Exam - Neurology Vital Signs Temp Pulse Resp BP Pulse Ox O2 Del Method O2 Flow Rate 97.0 F 78 18 131/60 H 96 Nasal Cannula 1.5 08/28/24 20:00 08/28/24 23:28 08/28/24 23:28 08/28/24 20:00 08/28/24 23:28 08/28/24 20:00 08/28/24 12:00 Narrative Exam GENERAL APPEARANCE: Well hydrated, well-nourished in no acute distress. HEENT: Normocephalic, atraumatic, extraocular movements intact. Pupils: Equal reacting to light and accommodation NECK: Supple, no JVD or bruits. CARDIOVASULAR: Heart: S1, S2 heard, regular without S3-S4 or murmur no rubs or gallops. LUNGS/CHEST: Clear to auscultation bilaterally. No rails, rhonchi, or wheezing. Normal inspection. ABDOMEN: Soft, nontender normal bowel sounds heard EXTREMITIES: Normal inspection and palpation. No edema, clubbing or cyanosis. SKIN: Warm and dry without rashes. Normal inspection. MUSCULOSKELETAL: No cervical, thoracic, lumbar or midline bony tenderness. Normal inspection. NEURO: Alert, awake and oriented x3. Cranial nerves: II through XII grossly intact with exception of improving left facial weakness of upper motor neuron type. Speech and language: Normal with no dysarthria or dysphasia. Motor system: Tone and bulk: Normal: Strength: 5 out of 5 in all 4 extremities; mild left pronator drift noted. Deep tendon reflexes: 2+ bilaterally symmetrical. Plantar reflex: Downgoing bilaterally. Sensory system: Intact to all modalities of sensation bilaterally. Coordination: Intact to [id number] and [id number] test bilaterally. No ataxia, but mild dysmetria and dysdiadochokinesia noted in the left upper extremity. No intention tremors noted. Gait: Not tested. No signs of meningeal irritation noted. PSYCHIATRIC: Normal mood and affect. Objective Labs 08/28/24 05:16 08/28/24 05:16 Labs: Laboratory Results - last 24 hr 08/28/24 05:16 WBC 10.0 RBC 4.08 L Hgb 12.0 L Hct 36.3 L MCV 89 MCH 29.4 MCHC 33.1 RDW Std Deviation 44.3 H Plt Count 167 Neut % (Auto) 80 Lymph % (Auto) 14 [place] % (Auto) 6 Eos % (Auto) 1 Baso % (Auto) 0 Neut # (Auto) 8.0 H Lymph # (Auto) 1.4 [place] # (Auto) 0.6 Eos # (Auto) 0.1 Baso # (Auto) 0.0 Immature Gran # (Auto) 0.05 H Absolute Nucleated RBC 0.00 Immature Gran % 1 H Nucleated RBC % 0 Sodium 137 Potassium 4.2 Chloride 103 Carbon Dioxide 27.7 Anion Gap 6 L BUN 6 L Creatinine 0.8 Estim Creat Clear Calc 79.0 eGFR > 60 BUN/Creatinine Ratio 8 L Glucose 111 H Calculated Osmolality 272 L Calcium 9.0 Corrected Calcium 9.4 Phosphorus 1.7 L Magnesium 2.0 Total Bilirubin 0.7 AST 15 ALT 9 L Alkaline Phosphatase 68 Total Protein 6.0 Albumin 3.5 D Globulin 2.5 Albumin/Globulin Ratio 1.4 Assessment & Plan Assessment and plan (1) Malignant neoplasm of sigmoid colon: Status: Acute Assessment and plan: Status post sigmoid colectomy. Patient has been off of antiplatelets since admission. Pathology confirmed adenocarcinoma (2) Acute CVA (cerebrovascular accident): Status: Acute Assessment and plan: mri Brain showed acute infarct in the right parietal area. improving in deficit: left facial and UE weakness Continue with BP control and statin hold off on antiplatelet agents because of GI bleeding. Neurologically stable (3) Essential (primary) hypertension: Status: Acute Assessment and plan: continue Losartan and Carvedilol (4) Hyperlipidemia: Status: Acute Assessment and plan: continue with statin
[2024-08-29] VITALS (11 sets, daily range): BP systolic 124–139; BP diastolic 60–83; PULSE 65–77; RESP 17–18; TEMP 36.2–37; O2SAT 93–98; BMI 31.6
[2024-08-29] MEDS: CEFOXITIN 2 GM in SODIUM CHLORIDE 0.9% (P) 50 ML IV ×3 (05:09→21:15)
[2024-08-29 05:51] LABS: Basophils % (Auto) 0 % (0-2.5); Eosinophils # (Auto) 0.1 Thou/mm3 (0.0-0.5); Eosinophils % (Auto) 0 % (0-10); Hematocrit 35.5 % (41.0-53.0); Hemoglobin 11.6 g/dL (13.5-16.0); Immature Granulocytes % (Auto) 1 % (0-0); Immature Granulocytes Auto 0.06 Thou/mm3 (0.00-0.00); Lymphocytes # (Auto) 1.3 Thou/mm3 (1.0-4.8); Lymphocytes % (Auto) 10 % (10-50); Mean Corpuscular HGB Conc 32.7 g/dl (31.0-37.0); Mean Corpuscular Hemoglobin 29.7 pg (25.0-35.0); Mean Corpuscular Volume 91 fL (80-100); Monocytes # (Auto) 0.9 Thou/mm3 (0.0-0.8); Monocytes % (Auto) 7 % (0-12); Neutrophils # (Auto) 10.6 Thou/mm3 (1.8-7.7); Neutrophils % (Auto) 82 % (37-80); Nucleated Red Blood Cell % 0 /100 WBC (0); Platelet Count 175 Thou/mm3 (140-440); RDW Standard Deviation 45.1 fL (35.1-43.9); Red Blood Count 3.91 Miln/mm3 (4.50-5.90); White Blood Count 12.9 Thou/mm3 (3.8-10.6)
[2024-08-29 06:33] LABS: Alanine Aminotransferase 10 U/L (10-49); Albumin, Serum 3.4 gm/dL (3.4-4.8); Albumin/Globulin Ratio 1.4 (1.2-2.2); Alkaline Phosphatase 65 U/L (46-116); Anion Gap 8 (7-16); Aspartate Amino Transferase 11 U/L (0-34); BUN/Creatinine Ratio 12 Ratio (12-20); Bilirubin,Total 0.9 mg/dL (0.3-1.2); Blood Urea Nitrogen 7 mg/dL (9-23); Calcium 8.5 mg/dL (8.3-10.6); Carbon Dioxide 25.8 mMol/L (20.0-31.0); Chloride 99 mMol/L (98-107); Creatinine (Component) 0.6 mg/dL (0.6-1.3); Estimated Creatinine Clearance 105.9 mL/min (>60); Globulin 2.5 gm/dL (2.3-3.5); Glucose 105 mg/dL (74-106); Magnesium 1.7 mg/dL (1.6-2.6); Osmolality,Calculated 264 (275-295); Phosphorous 1.9 mg/dL (2.4-5.1); Potassium 3.8 mMol/L (3.4-5.1); Sodium 133 mMol/L (136-145); Total Protein 5.9 gm/dL (5.7-8.2); eGFR > 60 See Note
[2024-08-29] MEDS: ZINC SULFATE 220 MG CAPSULE PO (08:06)
[2024-08-29] MEDS: carVEDILOL 3.125 MG TABLET 6.25 MG PO ×2 (08:06→17:31)
[2024-08-29] MEDS: ENOXAPARIN SOD INJ 40 MG/0.4 ML SYRINGE SC (08:06)
[2024-08-29] MEDS: LOSARTAN POTASSIUM 25 MG TABLET PO (08:07)
[2024-08-29] MEDS: ASCORBIC ACID 250 MG TABLET 500 MG PO ×2 (08:07→20:13)
[2024-08-29] MEDS: FAMOTIDINE INJ 10 MG/ML VIAL 2 ML 20 MG IVP (08:12)
[2024-08-29] MEDS: POTASSIUM CHLORIDE 20 mEq TABCR PO (10:20)
--- NOTE | 2024-08-29 10:54 | PD.RESPRO ---
Documentation for date of: 08/29/24 Subjective Subjective Interval history: No overnight events. Patient continues to have bowel movements with some melena noted, consistency is mostly soft stool. Patient is tolerating clear liquids well and was moved up to full diet. Continue to advance diet as per surgery. Patient examined at bedside. Abdomen soft and non distended. Normal reactive bowel sounds Continue to Lovenox and hold Aspirin and Plavix-hold as melena noted in stool. Incision site clean, free of discharge, and pink. Exam Vital Signs Temp Pulse Resp BP Pulse Ox O2 Del Method O2 Flow Rate 97.6 F 65 18 137/68 H 97 Nasal Cannula 1.5 08/29/24 08:00 08/29/24 08:07 08/29/24 08:00 08/29/24 08:07 08/29/24 08:00 08/29/24 04:00 08/28/24 12:00 Narrative Exam General Appearance: Alert & Oriented X3, well-nourished male who is lying in bed in no acute distress, incision site clean and pink without discharge. HEENT: Skull symmetrical and atraumatic. Conjunctivae pink and moist. Pupils equal, round, reactive to light and accommodation (PERRL). External ear without lesion or discharge. Straight, nares patient, mucosa pink, no discharge. No thyroid nodule appreciated. No cervical lymphadenopathy. Cardio: Normal Rate and Rhythm with S1 and S2 heart sounds. Possible holoystolic murmur noted. No bruits on carotid auscultation. No peripheral edema or cyanosis. Lungs: Symmetric with good expansion. Chest and back non-tender. Breath sounds vesicular without crackles, wheezing or rhonchi Abdomen: Mild tenderness secondary to s/p tumor resection, Non-distended, Normal Reactive Bowel Sounds. Neuro: Alert, cooperative, oriented to person, place, and time. Speech clear. CN grossly intact. Upper motor strength 4/5 and Lower motor strength 5/5. Sensation intact. Objective Labs 08/30/24 04:27 08/30/24 04:27 Labs: Laboratory Results - last 24 hr 08/29/24 04:45 WBC 12.9 H RBC 3.91 L Hgb 11.6 L Hct 35.5 L MCV 91 MCH 29.7 MCHC 32.7 RDW Std Deviation 45.1 H Plt Count 175 Neut % (Auto) 82 H Lymph % (Auto) 10 [place] % (Auto) 7 Eos % (Auto) 0 Baso % (Auto) 0 Neut # (Auto) 10.6 H Lymph # (Auto) 1.3 [place] # (Auto) 0.9 H Eos # (Auto) 0.1 Baso # (Auto) 0.0 Immature Gran # (Auto) 0.06 H Absolute Nucleated RBC 0.00 Immature Gran % 1 H Nucleated RBC % 0 Sodium 133 L Potassium 3.8 Chloride 99 Carbon Dioxide 25.8 Anion Gap 8 BUN 7 L Creatinine 0.6 Estim Creat Clear Calc 105.9 eGFR > 60 BUN/Creatinine Ratio 12 Glucose 105 Calculated Osmolality 264 L Calcium 8.5 Corrected Calcium 9.0 Phosphorus 1.9 L Magnesium 1.7 Total Bilirubin 0.9 AST 11 ALT 10 Alkaline Phosphatase 65 Total Protein 5.9 Albumin 3.4 Globulin 2.5 Albumin/Globulin Ratio 1.4 Quality Measures Quality Measures stroke Suspected type of Stroke: TIA Last known well (date): 08/16/24 Last known well (time): 20:00 Tenecteplase given: Reason(s) Tenecteplase not given: Acute bleeding diathesis (recent GI bleeding and is being worked up as an outpatient for colon CA per teleneurology) not given Rehab services: PT evaluation ordered VTE Prophylaxis: pharmaceutical (Aspirin and Plavix added, currently contrindicated given surgery, on Lovenox. ) Antithrombotic by day 2:: ordered Statin ordered: >75 y/o moderate or high intensity dose Anticoagulation ordered for A-fib or flutter (current or hx): not indicated (No history of AFib ) Advance care planning discussed with:: patient Assessment & Plan Assessment Current Active Medications: Generic Name Dose Route Start Last Admin Trade Name Freq PRN Reason Stop Dose Admin Albuterol/Ipratropium 3 ml 08/16/24 23:14 Albuterol/Ipratropium (Duoneb) Rt Shelly 3 Ml Nebu INH 09/15/24 23:13 Q2HR PRN SHORTNESS OF BREATH OR WHEEZE Ascorbic Acid 500 mg 08/25/24 21:00 08/29/24 08:07 Ascorbic Acid 250 Mg Tablet PO 09/24/24 20:59 500 mg BID RAGINI Administration Atorvastatin Calcium 40 mg 08/18/24 21:00 08/28/24 20:42 Atorvastatin Calcium 20 Mg Tablet PO 09/17/24 20:59 40 mg HS RAGINI Administration Benzocaine 1 lozenge 08/27/24 09:36 Benzocaine/Menthol 1 Lozenge PO 09/26/24 09:35 Q4HR PRN sore uvula Carvedilol 6.25 mg 08/20/24 08:00 08/29/24 08:06 Carvedilol 3.125 Mg Tablet PO 09/19/24 07:59 6.25 mg BIDWM RAGINI Administration Dextrose 25 ml 08/25/24 18:02 Dextrose 50%-Water Inj 50 Ml Syringe IV 09/24/24 18:01 Q15MIN PRN BG 50-70 responsive npo pt Dextrose 50 ml 08/25/24 18:02 Dextrose 50%-Water Inj 50 Ml Syringe IV 09/24/24 18:01 Q15MIN PRN BG <50 OR BG <70 & pt unresponsive Docusate Sodium 100 mg 08/25/24 21:00 08/29/24 08:07 Docusate Sod 100 Mg Capsule PO 09/24/24 20:59 Not Given BID RAGINI Protocol Enoxaparin Sodium 40 mg 08/28/24 09:15 08/29/24 08:06 Enoxaparin Sod Inj 40 Mg/0.4 Ml Syringe SC 09/11/24 09:14 40 mg QDAY RAGINI Administration Famotidine 20 mg 08/27/24 09:00 08/29/24 08:12 Famotidine Inj 10 Mg/Ml Vial 2 Ml IVP 09/16/24 08:59 20 mg QDAY RAGINI Administration Glucagon 1 mg 08/25/24 18:02 Glucagon Inj 1 Mg Vial IM Q15MIN PRN BG <70, and no IV access Cefoxitin Sodium 2 gm/ Sodium 50 mls @ 100 mls/hr 08/27/24 14:22 08/29/24 05:09 Chloride IV 09/01/24 17:59 100 mls/hr Q8HR RAGINI Administration Losartan Potassium 25 mg 08/20/24 09:00 08/29/24 08:07 Losartan Potassium 25 Mg Tablet PO 09/19/24 08:59 25 mg QDAY RAGINI Administration Morphine Sulfate 3 mg 08/25/24 15:01 Morphine Sulf Inj 10 Mg/Ml Vial IVP 08/30/24 15:00 Q3H PRN PAIN Ondansetron HCl 4 mg 08/25/24 15:01 08/26/24 05:25 Ondansetron Inj 2 Mg/Ml Inj 2 Ml IV 09/24/24 15:00 4 mg Q6HR PRN Administration NAUSEA OR VOMITING Protocol Zinc Sulfate 220 mg 08/26/24 09:00 08/29/24 08:06 Zinc Sulfate 220 Mg Capsule PO 09/25/24 08:59 220 mg QDAY RAGINI Administration Plan This patient is an 84-year-old male with past medical history significant for essential hypertension, hyperlipidemia, chronic stroke, history of prostate cancer s/p radiation September 2012 in remission and sigmoid colon mass for investigation presenting today with a chief complaint of left face tingling and left arm tingling. Patient will be admitted for workup and management of stroke rule out. History of prostate cancer. #S/p sigmoid colectomy with low pelvic anastomosis post op Day 4 #Likely due to sigmoid colon invasive adenocarcinoma per pathology report #GI bleed, resolved. Patient says for the past few months he has bright red blood upon wiping every few days. Patient also had an abdomen/pelvis CT last year April which showed a sigmoid mass suspicious for neoplasm and colonoscopy on 08/19/2024 showed an partially obstructing mass. F/U with PSA in AM. 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 Plan: -HOLDING aspirin and plavix - as patient is having melena in stool -Lovenox 40 mg SC Qday -Full Liquid Diet -Incentive Spirometer -Pain management as needed -Patient underwent sigmoid colectomy with low pelvic anastomosis for sigmoid colon invasive adenocarcinoma performed by surgeon, Dr Jade today without complication -PT evaluation stated that we need home health occupational therapy to address his limitations with fine motor skills in left upper extremity post CVA. ?GI, Dr. Orozco consulted. Appreciate recommendations. -General surgery consulted, appreciate recommendations, Dr. Jade. #Acute R parietal lobe infarct #History of right parietal infarct 05/12/2024 Patient presented with left facial numbness and left arm tingling. On exam patient had mild slurred speech, left facial tingling and left arm tingling. Today, improved as compared to admission NIHSS score of 2. Previous echo on file showed negative PFO and ASD (05/12/2024). This is patient's third stroke -Head CT negative for acute hemorrhage, mass effect or midline shift. Head/neck CTA negative for significant neck arterial stenosis and cerebral large vessel arterial occlusions. MRI brain 10 mm acute infarct right parietal lobe Plan: - Plavix 75mg PO qd and Aspirin 81 mg Qday-HOLDING tumor resection in colon -Lovenox 40 mg SC QDay - PT/OT referrals placed--> HH, pending major surgery now - PRN Acetaminophen 650mg to avoid hyperthermia - Labetalol 10 Mg IV Q 10 minutes as needed for SBP >220, restarted home medication, out of permissive HTN window home meds resumed - Dr Diop consulted, pending in-house Neurology recommendations #Essential hypertension #Hyperlipidemia On admission BP 158/79. Home medication losartan 25 Mg p.o. daily, Coreg 6.25 Mg p.o. twice daily and amlodipine 10 Mg p.o. daily Home medication atorvastatin 80 Mg p.o. every afternoon Plan: ?Atorvastatin 40 Mg p.o. HS -Losartan 25 mg QDay -Coreg 6.25 mg PO -Holding amlodipine 10 mg HS -out of window for permissive for permissive HTN #Elevated PSA -PSA 7.21 Plan: -Outpatient follow up #MANDO, pre-renal, resolved. #History of prostate cancer s/p radiation September 2012 in remission Health maintenance: Disposition: Patient underwent sigmoid colectomy with low pelvic anastomosis. Postop pain management. Diet: Full Liquid Diet colectomy day 4, per Dr. Jade Lines: pIVs, tele box GI Prophylaxis: Famotidine 20 mg IV BID Thrombo Prophylaxis: Lovenox Code status: FULL CODE - The patient's plan was discussed with attending Dr. Ramos and senior residents Dr. Jaspreet Wilson MD PGY1 Internal Medicine Attending Provider Attestation/Addendum I attest that I was physically present for the evaluation, physical examination, lab and imaging review of the patient with the residents. I discussed the case with the residents and agree with the findings and plans of care as documented above. Meliza Ramos MD
--- NOTE | 2024-08-29 13:15 | ESPR_ITS ---
Documentation for date of: 08/29/24 Subjective Subjective Narrative: Patient is seen and examined. His pain is improving. He is tolerating clear liquids without nausea or vomiting. He continues to have loose bowel movements Exam Vital Signs Temp Pulse Resp BP Pulse Ox O2 Del Method O2 Flow Rate 97.2 F 76 18 139/73 H 95 Nasal Cannula 1.5 08/29/24 12:00 08/29/24 12:00 08/29/24 12:00 08/29/24 12:00 08/29/24 12:00 08/29/24 04:00 08/28/24 12:00 Constitutional Constitutional: no acute distress Routine Abdominal Exam Abdominal: Present soft, normoactive bowel sounds and tenderness (Mild fanny- incisional tenderness. Incision is clean, dry and intact); Absent distended Assessment & Plan Assessment Additional comments: Postop day #4 status post exploratory laparotomy with sigmoid colectomy Plan Advance to full liquid diet Procedures Procedures Exploratory laparotomy, sigmoid colectomy with low pelvic anastomosis
--- NOTE | 2024-08-29 20:04 | PC.RT ---
pt unable to do IS
[2024-08-29] MEDS: ATORVASTATIN CALCIUM 20 MG TABLET 40 MG PO (20:13)
--- NOTE | 2024-08-29 20:47 | PD.IMPROG ---
Documentation for date of: 08/29/24 Subjective Subjective Interval history: Patient evaluated Having bowel movements on clear liquid diet No nausea vomiting Exam Vital Signs Temp Pulse Resp BP Pulse Ox O2 Del Method O2 Flow Rate 98.6 F 75 18 124/64 97 Room Air 1.5 08/29/24 16:00 08/29/24 20:04 08/29/24 20:04 08/29/24 17:31 08/29/24 20:04 08/29/24 16:00 08/28/24 12:00 Constitutional Comments: Alert oriented Routine Abdominal Exam Comments: Positive bowel sounds Objective Labs 08/29/24 04:45 08/29/24 04:45 Labs: Laboratory Results - last 24 hr 08/29/24 04:45 WBC 12.9 H RBC 3.91 L Hgb 11.6 L Hct 35.5 L MCV 91 MCH 29.7 MCHC 32.7 RDW Std Deviation 45.1 H Plt Count 175 Neut % (Auto) 82 H Lymph % (Auto) 10 [place] % (Auto) 7 Eos % (Auto) 0 Baso % (Auto) 0 Neut # (Auto) 10.6 H Lymph # (Auto) 1.3 [place] # (Auto) 0.9 H Eos # (Auto) 0.1 Baso # (Auto) 0.0 Immature Gran # (Auto) 0.06 H Absolute Nucleated RBC 0.00 Immature Gran % 1 H Nucleated RBC % 0 Sodium 133 L Potassium 3.8 Chloride 99 Carbon Dioxide 25.8 Anion Gap 8 BUN 7 L Creatinine 0.6 Estim Creat Clear Calc 105.9 eGFR > 60 BUN/Creatinine Ratio 12 Glucose 105 Calculated Osmolality 264 L Calcium 8.5 Corrected Calcium 9.0 Phosphorus 1.9 L Magnesium 1.7 Total Bilirubin 0.9 AST 11 ALT 10 Alkaline Phosphatase 65 Total Protein 5.9 Albumin 3.4 Globulin 2.5 Albumin/Globulin Ratio 1.4 Impressions Impression: # Obstructive adenocarcinoma of the sigmoid colon requiring sigmoid colectomy and primary anastomosis doing well postoperatively Advance diet Assessment & Plan A&P Narrative # Sigmoid colon mass Case discussed with internal medicine team Clear liquid diet GoLytely prep Colonoscopy tentatively scheduled for tomorrow morning if the patient is clear CEA level Other medical problems include # 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
--- NOTE | 2024-08-29 23:43 | PD.NEUROPROG ---
Documentation for date of: 08/29/24 Subjective Subjective Interval history: Patient was seen in [facility] today, continues to improve in his left facial and UE weakness. No headache or dz reported. Patient underwent surgery for sigmoid colectomy and is doing well. Exam - Neurology Vital Signs Temp Pulse Resp BP Pulse Ox O2 Del Method O2 Flow Rate 98.2 F 75 18 127/83 97 Room Air 1.5 08/29/24 20:00 08/29/24 20:04 08/29/24 20:04 08/29/24 20:00 08/29/24 20:04 08/29/24 20:00 08/28/24 12:00 Narrative Exam GENERAL APPEARANCE: Well hydrated, well-nourished in no acute distress. HEENT: Normocephalic, atraumatic, extraocular movements intact. Pupils: Equal reacting to light and accommodation NECK: Supple, no JVD or bruits. CARDIOVASULAR: Heart: S1, S2 heard, regular without S3-S4 or murmur no rubs or gallops. LUNGS/CHEST: Clear to auscultation bilaterally. No rails, rhonchi, or wheezing. Normal inspection. ABDOMEN: Soft, nontender normal bowel sounds heard EXTREMITIES: Normal inspection and palpation. No edema, clubbing or cyanosis. SKIN: Warm and dry without rashes. Normal inspection. MUSCULOSKELETAL: No cervical, thoracic, lumbar or midline bony tenderness. Normal inspection. NEURO: Alert, awake and oriented x3. Cranial nerves: II through XII grossly intact with exception of improving left facial weakness of upper motor neuron type. Speech and language: Normal with no dysarthria or dysphasia. Motor system: Tone and bulk: Normal: Strength: 5 out of 5 in all 4 extremities; mild left pronator drift noted. Deep tendon reflexes: 2+ bilaterally symmetrical. Plantar reflex: Downgoing bilaterally. Sensory system: Intact to all modalities of sensation bilaterally. Coordination: Intact to [id number] and [id number] test bilaterally. No ataxia, but mild dysmetria and dysdiadochokinesia noted in the left upper extremity. No intention tremors noted. Gait: normal. No signs of meningeal irritation noted. PSYCHIATRIC: Normal mood and affect. Objective Labs 08/30/24 04:27 08/30/24 04:27 Labs: Laboratory Results - last 24 hr 08/29/24 04:45 WBC 12.9 H RBC 3.91 L Hgb 11.6 L Hct 35.5 L MCV 91 MCH 29.7 MCHC 32.7 RDW Std Deviation 45.1 H Plt Count 175 Neut % (Auto) 82 H Lymph % (Auto) 10 [place] % (Auto) 7 Eos % (Auto) 0 Baso % (Auto) 0 Neut # (Auto) 10.6 H Lymph # (Auto) 1.3 [place] # (Auto) 0.9 H Eos # (Auto) 0.1 Baso # (Auto) 0.0 Immature Gran # (Auto) 0.06 H Absolute Nucleated RBC 0.00 Immature Gran % 1 H Nucleated RBC % 0 Sodium 133 L Potassium 3.8 Chloride 99 Carbon Dioxide 25.8 Anion Gap 8 BUN 7 L Creatinine 0.6 Estim Creat Clear Calc 105.9 eGFR > 60 BUN/Creatinine Ratio 12 Glucose 105 Calculated Osmolality 264 L Calcium 8.5 Corrected Calcium 9.0 Phosphorus 1.9 L Magnesium 1.7 Total Bilirubin 0.9 AST 11 ALT 10 Alkaline Phosphatase 65 Total Protein 5.9 Albumin 3.4 Globulin 2.5 Albumin/Globulin Ratio 1.4 Assessment & Plan Assessment and plan (1) Malignant neoplasm of sigmoid colon: Status: Acute Assessment and plan: Status post sigmoid colectomy. Patient has been off of antiplatelets since admission. Pathology confirmed adenocarcinoma (2) Acute CVA (cerebrovascular accident): Status: Acute Assessment and plan: mri Brain showed acute infarct in the right parietal area. improving in deficit: left facial and UE weakness Continue with BP control and statin hold off on antiplatelet agents because of GI bleeding. Neurologically stable (3) Essential (primary) hypertension: Status: Acute Assessment and plan: continue Losartan and Carvedilol (4) Hyperlipidemia: Status: Acute Assessment and plan: continue with statin
[2024-08-30] VITALS (9 sets, daily range): BP systolic 122–135; BP diastolic 59–69; PULSE 68–83; RESP 16–18; TEMP 36.4–37.3; O2SAT 95–99; BMI 31.6
[2024-08-30 05:28] LABS: Basophils % (Auto) 0 % (0-2.5); Eosinophils # (Auto) 0.1 Thou/mm3 (0.0-0.5); Eosinophils % (Auto) 1 % (0-10); Hematocrit 35.7 % (41.0-53.0); Hemoglobin 11.8 g/dL (13.5-16.0); Immature Granulocytes % (Auto) 0 % (0-0); Immature Granulocytes Auto 0.05 Thou/mm3 (0.00-0.00); Lymphocytes # (Auto) 1.3 Thou/mm3 (1.0-4.8); Lymphocytes % (Auto) 9 % (10-50); Mean Corpuscular HGB Conc 33.1 g/dl (31.0-37.0); Mean Corpuscular Hemoglobin 29.4 pg (25.0-35.0); Mean Corpuscular Volume 89 fL (80-100); Monocytes % (Auto) 7 % (0-12); Neutrophils # (Auto) 12.5 Thou/mm3 (1.8-7.7); Neutrophils % (Auto) 83 % (37-80); Nucleated Red Blood Cell % 0 /100 WBC (0); Platelet Count 184 Thou/mm3 (140-440); RDW Standard Deviation 44.2 fL (35.1-43.9); Red Blood Count 4.02 Miln/mm3 (4.50-5.90)
[2024-08-30] MEDS: CEFOXITIN 2 GM in SODIUM CHLORIDE 0.9% (P) 50 ML IV (05:44)
[2024-08-30 06:03] LABS: Alanine Aminotransferase 10 U/L (10-49); Albumin, Serum 3.6 gm/dL (3.4-4.8); Albumin/Globulin Ratio 1.4 (1.2-2.2); Alkaline Phosphatase 72 U/L (46-116); Anion Gap 10 (7-16); Aspartate Amino Transferase < 10 U/L (0-34); BUN/Creatinine Ratio 12 Ratio (12-20); Bilirubin,Total 0.8 mg/dL (0.3-1.2); Blood Urea Nitrogen 7 mg/dL (9-23); Calcium 8.8 mg/dL (8.3-10.6); Calcium (Corrected) 9.1 mg/dL (8.5-10.1); Carbon Dioxide 24.5 mMol/L (20.0-31.0); Chloride 100 mMol/L (98-107); Creatinine (Component) 0.6 mg/dL (0.6-1.3); Estimated Creatinine Clearance 105.9 mL/min (>60); Globulin 2.6 gm/dL (2.3-3.5); Glucose 106 mg/dL (74-106); Magnesium 1.7 mg/dL (1.6-2.6); Osmolality,Calculated 266 (275-295); Phosphorous 2.3 mg/dL (2.4-5.1); Potassium 3.6 mMol/L (3.4-5.1); Sodium 134 mMol/L (136-145); Total Protein 6.2 gm/dL (5.7-8.2); eGFR > 60 See Note
[2024-08-30] MEDS: POTASSIUM CHLORIDE 20 mEq TABCR PO (08:12)
[2024-08-30] MEDS: LOSARTAN POTASSIUM 25 MG TABLET PO (08:13)
[2024-08-30] MEDS: DOCUSATE SOD 100 MG CAPSULE PO (08:13)
[2024-08-30] MEDS: carVEDILOL 3.125 MG TABLET 6.25 MG PO ×2 (08:13→17:07)
[2024-08-30] MEDS: ZINC SULFATE 220 MG CAPSULE PO (08:14)
[2024-08-30] MEDS: ASCORBIC ACID 250 MG TABLET 500 MG PO ×2 (08:14→21:34)
[2024-08-30] MEDS: FAMOTIDINE INJ 10 MG/ML VIAL 2 ML 20 MG IVP (08:16)
[2024-08-30] MEDS: ENOXAPARIN SOD INJ 40 MG/0.4 ML SYRINGE SC (08:17)
[2024-08-30] MEDS: Magnesium Sulfate 2 GM Ivpb 2 GM/50 ML BAG IV (08:20)
--- NOTE | 2024-08-30 10:51 | XR_ITS ---
Examination: AP chest single view TECHNIQUE: Sitting AP portable upright chest single view Exam date and time: August 30, 2024 1102 hours Comparison May 12, 2024 INDICATIONS: Shortness of breath today. FINDINGS: Minimal prominence left ventricle Ectatic thoracic aorta Mild to moderate elevation right hemidiaphragm Minor atelectasis left base No lobar pneumonia or pulmonary edema Prominent osteopenia IMPRESSION: Minor atelectasis left base No pneumonia or pulmonary edema
--- NOTE | 2024-08-30 10:52 | XR_ITS ---
Examination: CT abdomen with intravenous contrast CT pelvis with intravenous contrast 2-D coronal reconstructions 2-D sagittal reconstructions Date and time of exam:August 30, 2024 1132 hours Comparison February 19, 2024 INDICATIONS: Generalized abdominal pain today. CTDI: vol (mGy) 9.70 DLP: (mGycm) 6 7069 Technique: Multiple axial sections of the abdomen and pelvis have been obtained. 64 slice high-resolution scanner used. 3 mm axial sections have been obtained, post intravenous injection 60 cc [id number] 2-D sagittal, coronal reconstructions obtained. Low dose protocols were performed. One or more of the following dose reduction techniques were used; automated exposure control, adjustment of the mA and/or KV according to patient size, use of iterative reconstruction technique. Findings: Mild atelectasis in the right lower lobe No focal liver lesions Absent gallbladder Spleen not enlarged No pancreatic or adrenal mass Minimal perinephric stranding Lower pole 3.5 cm left renal cyst Abdominal aortic calcification 20 mm fat-containing umbilical hernia Normal appendix Colonic diverticulosis with mild inflammatory change about the diverticula Sutures in the sigmoid colon Small pericolonic abscess, 4 x 1.8 cm, adjacent to the sigmoid colon Urinary bladder intact IMPRESSION: Colonic diverticulosis, suspicious for mild acute diverticulitis Small pericolonic abscess, adjacent to the sigmoid colon, this abscess is too small to place a catheter in at the current time Suggest follow-up CT imaging post antibiotic therapy
--- NOTE | 2024-08-30 11:31 | ESPR_ITS ---
Documentation for date of: 08/30/24 Subjective Subjective Narrative: Patient is seen and examined. He is tolerating full liquids without nausea or vomiting. He continues to have bowel movements Exam Vital Signs Temp Pulse Resp BP Pulse Ox O2 Del Method O2 Flow Rate 98.5 F 71 18 134/60 H 97 Nasal Cannula 1 08/30/24 08:00 08/30/24 08:13 08/30/24 08:00 08/30/24 08:13 08/30/24 08:00 08/30/24 08:00 08/30/24 08:00 Constitutional Constitutional: no acute distress Routine Abdominal Exam Abdominal: Present soft, normoactive bowel sounds and tenderness (Mohini- incisional tenderness. Incision is clean, dry and intact); Absent distended Assessment & Plan Assessment Additional comments: Postop day #5 status post exploratory laparotomy with sigmoid colectomy. His WBC is trending upwards Plan Advance diet. Continue IV antibiotics Procedures Procedures Exploratory laparotomy, sigmoid colectomy with low pelvic anastomosis
[2024-08-30] MEDS: metroNIDAZOLE 250 MG TABLET 500 MG PO ×2 (15:00→21:34)
[2024-08-30] MEDS: CEFOXITIN 2 GM in SODIUM CHLORIDE 0.9% 50 ML IV ×2 (15:02→21:34)
--- NOTE | 2024-08-30 15:19 | PC.SS ---
Rounding note: pending CT and surgery recommendations.
--- NOTE | 2024-08-30 15:21 | PD.RESPRO ---
Documentation for date of: 08/30/24 Subjective Subjective Interval history: No overnight events. Patient continues to complain of some shortness of breath. Denied chest pain on pyrexia overnight. Patient is saturating well SpO2 97%, continue to use incentive spirometer. Patient still having regular bowel movements and melena improving. Continue to advance diet and continue Lovenox. Holding Asprin and Plavix. S/P Day five of sigmoid colectomy with anastomosis secondary to adenocarcinoma. Repeat Cxr and CT abdomen. Exam Vital Signs Temp Pulse Resp BP Pulse Ox O2 Del Method O2 Flow Rate 99.1 F 83 18 125/61 96 Room Air 1 08/30/24 12:00 08/30/24 12:00 08/30/24 12:00 08/30/24 12:08/30/24 12:08/30/24 12:08/30/24 08:00 Narrative Exam General Appearance: Alert & Oriented X3, well-nourished male who is lying in bed in no acute distress, no increased work of breathing noted. Incision site clear, no discharge, and pink. HEENT: Skull symmetrical and atraumatic. Conjunctivae pink and moist. Pupils equal, round, reactive to light and accommodation (PERRL). External ear without lesion or discharge. Straight, nares patient, mucosa pink, no discharge. No thyroid nodule appreciated. No cervical lymphadenopathy. Cardio: Normal Rate and Rhythm with S1 and S2 heart sounds. No murmurs or extra heart sounds auscultated. No bruits on carotid auscultation. No peripheral edema or cyanosis. Lungs: Symmetric with good expansion. Chest and back non-tender. Breath sounds vesicular with mild rhonchi on right lower base. Abdomen: Non-tender, Non-distended, Normal Reactive Bowel Sounds Neuro: Alert, cooperative, oriented to person, place, and time. Speech clear. CN grossly intact. Upper motor strength 5/5 and Lower motor strength 5/5. Sensation intact. Objective Labs 08/31/24 05:19 08/31/24 05:19 Labs: Laboratory Results - last 24 hr 08/30/24 04:27 WBC 15.0 H RBC 4.02 L Hgb 11.8 L Hct 35.7 L MCV 89 MCH 29.4 MCHC 33.1 RDW Std Deviation 44.2 H Plt Count 184 Neut % (Auto) 83 H Lymph % (Auto) 9 L [place] % (Auto) 7 Eos % (Auto) 1 Baso % (Auto) 0 Neut # (Auto) 12.5 H Lymph # (Auto) 1.3 [place] # (Auto) 1.0 H Eos # (Auto) 0.1 Baso # (Auto) 0.0 Immature Gran # (Auto) 0.05 H Absolute Nucleated RBC 0.00 Immature Gran % 0 Nucleated RBC % 0 Sodium 134 L Potassium 3.6 Chloride 100 Carbon Dioxide 24.5 Anion Gap 10 BUN 7 L Creatinine 0.6 Estim Creat Clear Calc 105.9 eGFR > 60 BUN/Creatinine Ratio 12 Glucose 106 Calculated Osmolality 266 L Calcium 8.8 Corrected Calcium 9.1 Phosphorus 2.3 L Magnesium 1.7 Total Bilirubin 0.8 AST < 10 ALT 10 Alkaline Phosphatase 72 Total Protein 6.2 Albumin 3.6 Globulin 2.6 Albumin/Globulin Ratio 1.4 Quality Measures Quality Measures stroke Suspected type of Stroke: TIA Last known well (date): 08/16/24 Last known well (time): 20:00 Tenecteplase given: Reason(s) Tenecteplase not given: Acute bleeding diathesis (recent GI bleeding and is being worked up as an outpatient for colon CA per teleneurology) not given Rehab services: PT evaluation ordered and Speech Language Pathology eval ordered VTE Prophylaxis: pharmaceutical Antithrombotic by day 2:: ordered Statin ordered: >75 y/o moderate or high intensity dose Anticoagulation ordered for A-fib or flutter (current or hx): not indicated Advance care planning discussed with:: patient and child Assessment & Plan Assessment Current Active Medications: Generic Name Dose Route Start Last Admin Trade Name Freq PRN Reason Stop Dose Admin Albuterol/Ipratropium 3 ml 08/16/24 23:14 Albuterol/Ipratropium (Duoneb) Rt Shelly 3 Ml Nebu INH 09/15/24 23:13 Q2HR PRN SHORTNESS OF BREATH OR WHEEZE Ascorbic Acid 500 mg 08/25/24 21:00 08/30/24 08:14 Ascorbic Acid 250 Mg Tablet PO 09/24/24 20:59 500 mg BID RAGINI Administration Atorvastatin Calcium 40 mg 08/18/24 21:00 08/29/24 20:13 Atorvastatin Calcium 20 Mg Tablet PO 09/17/24 20:59 40 mg HS RAGINI Administration Benzocaine 1 lozenge 08/27/24 09:36 Benzocaine/Menthol 1 Lozenge PO 09/26/24 09:35 Q4HR PRN sore uvula Carvedilol 6.25 mg 08/20/24 08:00 08/30/24 08:13 Carvedilol 3.125 Mg Tablet PO 09/19/24 07:59 6.25 mg BIDWM RAGINI Administration Dextrose 25 ml 08/25/24 18:02 Dextrose 50%-Water Inj 50 Ml Syringe IV 09/24/24 18:01 Q15MIN PRN BG 50-70 responsive npo pt Dextrose 50 ml 08/25/24 18:02 Dextrose 50%-Water Inj 50 Ml Syringe IV 09/24/24 18:01 Q15MIN PRN BG <50 OR BG <70 & pt unresponsive Docusate Sodium 100 mg 08/25/24 21:00 08/30/24 08:13 Docusate Sod 100 Mg Capsule PO 09/24/24 20:59 100 mg BID RAGINI Administration Protocol Enoxaparin Sodium 40 mg 08/31/24 09:00 Enoxaparin Sod Inj 40 Mg/0.4 Ml Syringe SC 09/11/24 09:14 QDAY RAGINI Famotidine 20 mg 08/27/24 09:00 08/30/24 08:16 Famotidine Inj 10 Mg/Ml Vial 2 Ml IVP 09/16/24 08:59 20 mg QDAY RAGINI Administration Glucagon 1 mg 08/25/24 18:02 Glucagon Inj 1 Mg Vial IM Q15MIN PRN BG <70, and no IV access Cefoxitin Sodium 2 gm/ Sodium 50 mls @ 100 mls/hr 08/30/24 14:45 08/30/24 15:02 Chloride IV 09/01/24 17:59 100 mls/hr Q8HR RAGINI Administration Losartan Potassium 25 mg 08/20/24 09:00 08/30/24 08:13 Losartan Potassium 25 Mg Tablet PO 09/19/24 08:59 25 mg QDAY RAGINI Administration Metronidazole 500 mg 08/30/24 15:00 08/30/24 15:00 Metronidazole 250 Mg Tablet PO 09/06/24 14:59 500 mg BID RAGINI Administration Ondansetron HCl 4 mg 08/25/24 15:01 08/26/24 05:25 Ondansetron Inj 2 Mg/Ml Inj 2 Ml IV 09/24/24 15:00 4 mg Q6HR PRN Administration NAUSEA OR VOMITING Protocol Zinc Sulfate 220 mg 08/26/24 09:00 08/30/24 08:14 Zinc Sulfate 220 Mg Capsule PO 09/25/24 08:59 220 mg QDAY RAGINI Administration Plan This patient is an 84-year-old male with past medical history significant for essential hypertension, hyperlipidemia, chronic stroke, history of prostate cancer s/p radiation September 2012 in remission and sigmoid colon mass for investigation presenting today with a chief complaint of left face tingling and left arm tingling. Patient will be admitted for workup and management of stroke rule out. History of prostate cancer. 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 Patient says for the past few months he has bright red blood upon wiping every few days. Patient also had an abdomen/pelvis CT last year April which showed a sigmoid mass suspicious for neoplasm and colonoscopy on 08/19/2024 showed an partially obstructing mass. F/U with PSA in AM. 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 Plan: -HOLDING aspirin and plavix - as patient is having melena in stool -Lovenox 40 mg SC Qday -Full Liquid Diet ->Advancing -Incentive Spirometer -Pain management as needed -Patient underwent sigmoid colectomy with low pelvic anastomosis for sigmoid colon invasive adenocarcinoma performed by surgeon, Dr Jade today without complication -PT evaluation stated that we need home health occupational therapy to address his limitations with fine motor skills in left upper extremity post CVA. ?GI, Dr. Orozco consulted. Appreciate recommendations. -General surgery consulted, appreciate recommendations, Dr. Jade. #Acute R parietal lobe infarct #History of right parietal infarct 05/12/2024 Patient presented with left facial numbness and left arm tingling. On exam patient had mild slurred speech, left facial tingling and left arm tingling. Today, improved as compared to admission NIHSS score of 2. Previous echo on file showed negative PFO and ASD (05/12/2024). This is patient's third stroke. No neuro deficits noted. Diagnostics: -Head CT negative for acute hemorrhage, mass effect or midline shift. Head/neck CTA negative for significant neck arterial stenosis and cerebral large vessel arterial occlusions. MRI brain 10 mm acute infarct right parietal lobe Plan: - Plavix 75mg PO qd and Aspirin 81 mg Qday-HOLDING tumor resection in colon -Lovenox 40 mg SC QDay - PT/OT referrals placed--> , pending major surgery now - PRN Acetaminophen 650mg to avoid hyperthermia - Labetalol 10 Mg IV Q 10 minutes as needed for SBP >220, restarted home medication, out of permissive HTN window home meds resumed - Dr Diop consulted, pending in-house Neurology recommendations #Essential hypertension #Hyperlipidemia On admission BP 158/79. Home medication losartan 25 Mg p.o. daily, Coreg 6.25 Mg p.o. twice daily and amlodipine 10 Mg p.o. daily Home medication atorvastatin 80 Mg p.o. every afternoon Plan: ?Atorvastatin 40 Mg p.o. HS -Losartan 25 mg QDay -Coreg 6.25 mg PO -Holding amlodipine 10 mg HS as blood pressure has been stable, consider D/C upon discharge -out of window for permissive for permissive HTN #Elevated PSA -PSA 7.21 Plan: -Outpatient follow up #MANDO, pre-renal, resolved. #History of prostate cancer s/p radiation September 2012 in remission Health maintenance: Disposition: Patient underwent sigmoid colectomy with low pelvic anastomosis. Postop pain management and advancing diet. Diet: Full Liquid Diet-->advance as tolerated,s/p colectomy day 5, per Dr. Jade Lines: pIVs, tele box GI Prophylaxis: Famotidine 20 mg IV BID Thrombo Prophylaxis: Lovenox Code status: FULL CODE - The patient's plan was discussed with attending Dr. Linder and senior residents Dr. Jaspreet Wilson MD PGY1 Internal Medicine Attending Provider Attestation/Addendum Patient seen and examined at bedside with resident, agree with assessment and plan as dictated above. Patient with climbing white count today c/o some residual abd pain. Obtained CXR and CT abdomen which showed small fluid collection in the belly concerning for pericolonic abscess. Will initiate patient on flagyl for anaerobic coverage and continue to monitor vital signs and wbc count closely. Jostin Linder MD
--- NOTE | 2024-08-30 19:59 | PD.IMPROG ---
Documentation for date of: 08/30/24 Subjective Subjective Interval history: No nausea vomiting tolerating full liquid diet Having bowel movements and passage of flatus Exam Vital Signs Temp Pulse Resp BP Pulse Ox O2 Del Method O2 Flow Rate 98.8 F 78 17 135/69 H 98 Nasal Cannula 2 08/30/24 16:00 08/30/24 17:07 08/30/24 16:00 08/30/24 17:07 08/30/24 16:00 08/30/24 16:00 08/30/24 16:00 Objective Labs 08/30/24 04:27 08/30/24 04:27 Labs: Laboratory Results - last 24 hr 08/30/24 04:27 WBC 15.0 H RBC 4.02 L Hgb 11.8 L Hct 35.7 L MCV 89 MCH 29.4 MCHC 33.1 RDW Std Deviation 44.2 H Plt Count 184 Neut % (Auto) 83 H Lymph % (Auto) 9 L [place] % (Auto) 7 Eos % (Auto) 1 Baso % (Auto) 0 Neut # (Auto) 12.5 H Lymph # (Auto) 1.3 [place] # (Auto) 1.0 H Eos # (Auto) 0.1 Baso # (Auto) 0.0 Immature Gran # (Auto) 0.05 H Absolute Nucleated RBC 0.00 Immature Gran % 0 Nucleated RBC % 0 Sodium 134 L Potassium 3.6 Chloride 100 Carbon Dioxide 24.5 Anion Gap 10 BUN 7 L Creatinine 0.6 Estim Creat Clear Calc 105.9 eGFR > 60 BUN/Creatinine Ratio 12 Glucose 106 Calculated Osmolality 266 L Calcium 8.8 Corrected Calcium 9.1 Phosphorus 2.3 L Magnesium 1.7 Total Bilirubin 0.8 AST < 10 ALT 10 Alkaline Phosphatase 72 Total Protein 6.2 Albumin 3.6 Globulin 2.6 Albumin/Globulin Ratio 1.4 Impressions Impression: # Status post exploratory laparotomy resection of the sigmoid well-differentiated adenocarcinoma which is completely obstructing doing well postoperatively Advance diet Assessment & Plan A&P Narrative # Sigmoid colon mass Case discussed with internal medicine team Clear liquid diet GoLytely prep Colonoscopy tentatively scheduled for tomorrow morning if the patient is clear CEA level Other medical problems include # 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
[2024-08-30] MEDS: ATORVASTATIN CALCIUM 20 MG TABLET 40 MG PO (21:34)
--- NOTE | 2024-08-30 23:52 | PD.NEUROPROG ---
Documentation for date of: 08/30/24 Subjective Subjective Interval history: Patient was seen in [facility] today, no more left facial and UE weakness. No headache or dz reported. Patient underwent surgery for sigmoid colectomy and is doing well. Exam - Neurology Vital Signs Temp Pulse Resp BP Pulse Ox O2 Del Method O2 Flow Rate 97.5 F 73 18 133/69 H 99 Nasal Cannula 2 08/30/24 20:00 08/30/24 23:33 08/30/24 23:33 08/30/24 20:00 08/30/24 23:33 08/30/24 20:00 08/30/24 16:00 Narrative Exam GENERAL APPEARANCE: Well hydrated, well-nourished in no acute distress. HEENT: Normocephalic, atraumatic, extraocular movements intact. Pupils: Equal reacting to light and accommodation NECK: Supple, no JVD or bruits. CARDIOVASULAR: Heart: S1, S2 heard, regular without S3-S4 or murmur no rubs or gallops. LUNGS/CHEST: Clear to auscultation bilaterally. No rails, rhonchi, or wheezing. Normal inspection. ABDOMEN: Soft, nontender normal bowel sounds heard EXTREMITIES: Normal inspection and palpation. No edema, clubbing or cyanosis. SKIN: Warm and dry without rashes. Normal inspection. MUSCULOSKELETAL: No cervical, thoracic, lumbar or midline bony tenderness. Normal inspection. NEURO: Alert, awake and oriented x3. Cranial nerves: II through XII grossly intact. Speech and language: Normal with no dysarthria or dysphasia. Motor system: Tone and bulk: Normal: Strength: 5 out of 5 in all 4 extremities; mild left pronator drift noted. Deep tendon reflexes: 2+ bilaterally symmetrical. Plantar reflex: Downgoing bilaterally. Sensory system: Intact to all modalities of sensation bilaterally. Coordination: Intact to [id number] and [id number] test bilaterally. No ataxia, but mild dysmetria and dysdiadochokinesia noted in the left upper extremity. No intention tremors noted. Gait: normal. No signs of meningeal irritation noted. PSYCHIATRIC: Normal mood and affect. Objective Labs 08/31/24 05:19 08/31/24 05:19 Labs: Laboratory Results - last 24 hr 08/30/24 04:27 WBC 15.0 H RBC 4.02 L Hgb 11.8 L Hct 35.7 L MCV 89 MCH 29.4 MCHC 33.1 RDW Std Deviation 44.2 H Plt Count 184 Neut % (Auto) 83 H Lymph % (Auto) 9 L [place] % (Auto) 7 Eos % (Auto) 1 Baso % (Auto) 0 Neut # (Auto) 12.5 H Lymph # (Auto) 1.3 [place] # (Auto) 1.0 H Eos # (Auto) 0.1 Baso # (Auto) 0.0 Immature Gran # (Auto) 0.05 H Absolute Nucleated RBC 0.00 Immature Gran % 0 Nucleated RBC % 0 Sodium 134 L Potassium 3.6 Chloride 100 Carbon Dioxide 24.5 Anion Gap 10 BUN 7 L Creatinine 0.6 Estim Creat Clear Calc 105.9 eGFR > 60 BUN/Creatinine Ratio 12 Glucose 106 Calculated Osmolality 266 L Calcium 8.8 Corrected Calcium 9.1 Phosphorus 2.3 L Magnesium 1.7 Total Bilirubin 0.8 AST < 10 ALT 10 Alkaline Phosphatase 72 Total Protein 6.2 Albumin 3.6 Globulin 2.6 Albumin/Globulin Ratio 1.4 Assessment & Plan Assessment and plan (1) Malignant neoplasm of sigmoid colon: Status: Acute Assessment and plan: Status post sigmoid colectomy. Patient has been off of antiplatelets since admission. Pathology confirmed adenocarcinoma (2) Acute CVA (cerebrovascular accident): Status: Acute Assessment and plan: mri Brain showed acute infarct in the right parietal area. improving in deficit: left facial and UE weakness Continue with BP control and statin hold off on antiplatelet agents because of GI bleeding. Neurologically stable (3) Essential (primary) hypertension: Status: Acute Assessment and plan: continue Losartan and Carvedilol (4) Hyperlipidemia: Status: Acute Assessment and plan: continue with statin
[2024-08-31] VITALS (10 sets, daily range): BP systolic 111–137; BP diastolic 59–72; PULSE 60–75; RESP 16–18; TEMP 36.1–36.4; O2SAT 93–98; BMI 21.1
[2024-08-31] MEDS: CEFOXITIN 2 GM in SODIUM CHLORIDE 0.9% 50 ML IV ×3 (05:25→21:34)
[2024-08-31 06:07] LABS: Basophils % (Auto) 0 % (0-2.5); Eosinophils # (Auto) 0.2 Thou/mm3 (0.0-0.5); Eosinophils % (Auto) 1 % (0-10); Hematocrit 33.3 % (41.0-53.0); Immature Granulocytes % (Auto) 1 % (0-0); Immature Granulocytes Auto 0.06 Thou/mm3 (0.00-0.00); Lymphocytes # (Auto) 1.3 Thou/mm3 (1.0-4.8); Lymphocytes % (Auto) 11 % (10-50); Mean Corpuscular Hemoglobin 29.6 pg (25.0-35.0); Mean Corpuscular Volume 90 fL (80-100); Monocytes # (Auto) 0.9 Thou/mm3 (0.0-0.8); Monocytes % (Auto) 8 % (0-12); Neutrophils # (Auto) 8.7 Thou/mm3 (1.8-7.7); Neutrophils % (Auto) 79 % (37-80); Nucleated Red Blood Cell % 0 /100 WBC (0); Platelet Count 150 Thou/mm3 (140-440); RDW Standard Deviation 44.9 fL (35.1-43.9); Red Blood Count 3.71 Miln/mm3 (4.50-5.90)
[2024-08-31 06:42] LABS: Alanine Aminotransferase 9 U/L (10-49); Albumin, Serum 3.4 gm/dL (3.4-4.8); Albumin/Globulin Ratio 1.4 (1.2-2.2); Alkaline Phosphatase 70 U/L (46-116); Anion Gap 7 (7-16); Aspartate Amino Transferase 11 U/L (0-34); BUN/Creatinine Ratio 14 Ratio (12-20); Bilirubin,Total 0.4 mg/dL (0.3-1.2); Blood Urea Nitrogen 10 mg/dL (9-23); Calcium 8.6 mg/dL (8.3-10.6); Calcium (Corrected) 9.1 mg/dL (8.5-10.1); Carbon Dioxide 25.7 mMol/L (20.0-31.0); Chloride 101 mMol/L (98-107); Creatinine (Component) 0.7 mg/dL (0.6-1.3); Estimated Creatinine Clearance 88.3 mL/min (>60); Globulin 2.5 gm/dL (2.3-3.5); Glucose 111 mg/dL (74-106); Magnesium 2.1 mg/dL (1.6-2.6); Osmolality,Calculated 268 (275-295); Phosphorous 2.2 mg/dL (2.4-5.1); Potassium 4.2 mMol/L (3.4-5.1); Sodium 134 mMol/L (136-145); Total Protein 5.9 gm/dL (5.7-8.2); eGFR > 60 See Note
[2024-08-31] MEDS: carVEDILOL 3.125 MG TABLET 6.25 MG PO ×2 (09:54→18:02)
[2024-08-31] MEDS: metroNIDAZOLE 250 MG TABLET 500 MG PO ×2 (09:54→21:33)
[2024-08-31] MEDS: ASCORBIC ACID 250 MG TABLET 500 MG PO ×2 (09:54→21:33)
[2024-08-31] MEDS: FAMOTIDINE INJ 10 MG/ML VIAL 2 ML 20 MG IVP (09:54)
[2024-08-31] MEDS: NAPH,KPH MBDB 1 PACKET (1.5 GM) PO (09:54)
[2024-08-31] MEDS: LOSARTAN POTASSIUM 25 MG TABLET PO (09:54)
[2024-08-31] MEDS: ZINC SULFATE 220 MG CAPSULE PO (09:55)
[2024-08-31] MEDS: DOCUSATE SOD 100 MG CAPSULE PO (09:55)
[2024-08-31] MEDS: ENOXAPARIN SOD INJ 40 MG/0.4 ML SYRINGE SC (09:55)
--- NOTE | 2024-08-31 12:08 | ESPR_ITS ---
Documentation for date of: 08/31/24 Subjective Subjective Narrative: Patient is seen and examined. He continues to improve clinically. He is tolerating soft diet without nausea or vomiting and having bowel movements Exam Vital Signs Temp Pulse Resp BP Pulse Ox O2 Del Method O2 Flow Rate 97.3 F 60 17 134/69 H 98 Nasal Cannula 2 08/31/24 08:00 08/31/24 09:54 08/31/24 08:00 08/31/24 09:54 08/31/24 08:00 08/31/24 08:00 08/31/24 08:00 Constitutional Constitutional: no acute distress Routine Abdominal Exam Abdominal: Present soft, normoactive bowel sounds and tenderness (Minimal fanny- incisional tenderness. Incision is clean, dry and intact); Absent distended Assessment & Plan Assessment Additional comments: Postop day #6 status post exploratory laparotomy with sigmoid colectomy. His WBC is improving. CT scan findings are most likely postoperative fluid in the pelvis rather than abscess Plan May resume Plavix. Patient is stable from surgical standpoint for discharge Procedures Procedures Exploratory laparotomy, sigmoid colectomy with low pelvic anastomosis
--- NOTE | 2024-08-31 14:23 | ESPR_ITS ---
Documentation for date of: 08/31/24 Subjective Subjective Interval history: Patient seen and examined at bedside. No acute problems overnight. Incision site is clean, intact, dry. Patient tolerating PO intake and having BM. No other acute problems. CT scan shows small fanny-colonic abscess, general surgery suspect post-surgical fluid collection. Patient afebrile. Leukocytosis improving. Advancing diet. Exam Vital Signs Temp Pulse Resp BP Pulse Ox O2 Del Method O2 Flow Rate 97.6 F 71 17 111/59 L 98 Nasal Cannula 2 08/31/24 12:00 08/31/24 12:08/31/24 12:08/31/24 12:08/31/24 12:08/31/24 12:08/31/24 12:00 Narrative Exam Constitutional: NAD. Awake, alert, pleasant. HEENT: NCAT. Vision grossly intact. Respiratory: CTAB bilaterally. Cardiac: RRR. Abdomen: BS+. Soft, non-distended, non-tender. Incision sites clean, dry, intact. No drainage. MSK: No B/L LE edema. Skin: Warm, dry, intact. Neuro: Motor and sensation grossly intact. Psychiatric: Appropriate mood and affect. Objective Labs 08/31/24 05:19 08/31/24 05:19 Labs: Laboratory Results - last 24 hr 08/31/24 05:19 WBC 11.0 H RBC 3.71 L Hgb 11.0 L Hct 33.3 L MCV 90 MCH 29.6 MCHC 33.0 RDW Std Deviation 44.9 H Plt Count 150 D Neut % (Auto) 79 Lymph % (Auto) 11 [place] % (Auto) 8 Eos % (Auto) 1 Baso % (Auto) 0 Neut # (Auto) 8.7 H Lymph # (Auto) 1.3 [place] # (Auto) 0.9 H Eos # (Auto) 0.2 Baso # (Auto) 0.0 Immature Gran # (Auto) 0.06 H Absolute Nucleated RBC 0.00 Immature Gran % 1 H Nucleated RBC % 0 Sodium 134 L Potassium 4.2 D Chloride 101 Carbon Dioxide 25.7 Anion Gap 7 BUN 10 Creatinine 0.7 Estim Creat Clear Calc 88.3 eGFR > 60 BUN/Creatinine Ratio 14 Glucose 111 H Calculated Osmolality 268 L Calcium 8.6 Corrected Calcium 9.1 Phosphorus 2.2 L Magnesium 2.1 Total Bilirubin 0.4 AST 11 ALT 9 L Alkaline Phosphatase 70 Total Protein 5.9 Albumin 3.4 Globulin 2.5 Albumin/Globulin Ratio 1.4 Quality Measures Quality Measures stroke Suspected type of Stroke: TIA Last known well (date): 08/16/24 Last known well (time): 20:00 Tenecteplase given: Reason(s) Tenecteplase not given: Acute bleeding diathesis (recent GI bleeding and is being worked up as an outpatient for colon CA per teleneurology) not given Rehab services: PT evaluation ordered and Speech Language Pathology eval ordered VTE Prophylaxis: pharmaceutical Antithrombotic by day 2:: ordered and contraindicated (describe) (GI BLEED) Statin ordered: >75 y/o moderate or high intensity dose Anticoagulation ordered for A-fib or flutter (current or hx): not indicated Advance care planning discussed with:: patient Assessment & Plan Assessment Current Active Medications: Generic Name Dose Route Start Last Admin Trade Name Freq PRN Reason Stop Dose Admin Albuterol/Ipratropium 3 ml 08/16/24 23:14 Albuterol/Ipratropium (Duoneb) Rt Shelly 3 Ml Nebu INH 09/15/24 23:13 Q2HR PRN SHORTNESS OF BREATH OR WHEEZE Ascorbic Acid 500 mg 08/25/24 21:00 08/31/24 09:54 Ascorbic Acid 250 Mg Tablet PO 09/24/24 20:59 500 mg BID RAGINI Administration Atorvastatin Calcium 40 mg 08/18/24 21:00 08/30/24 21:34 Atorvastatin Calcium 20 Mg Tablet PO 09/17/24 20:59 40 mg HS RAGINI Administration Benzocaine 1 lozenge 08/27/24 09:36 Benzocaine/Menthol 1 Lozenge PO 09/26/24 09:35 Q4HR PRN sore uvula Carvedilol 6.25 mg 08/20/24 08:00 08/31/24 09:54 Carvedilol 3.125 Mg Tablet PO 09/19/24 07:59 6.25 mg BIDWM RAGINI Administration Dextrose 25 ml 08/25/24 18:02 Dextrose 50%-Water Inj 50 Ml Syringe IV 09/24/24 18:01 Q15MIN PRN BG 50-70 responsive npo pt Dextrose 50 ml 08/25/24 18:02 Dextrose 50%-Water Inj 50 Ml Syringe IV 09/24/24 18:01 Q15MIN PRN BG <50 OR BG <70 & pt unresponsive Docusate Sodium 100 mg 08/25/24 21:00 08/31/24 09:55 Docusate Sod 100 Mg Capsule PO 09/24/24 20:59 100 mg BID RAGINI Administration Protocol Enoxaparin Sodium 40 mg 08/31/24 09:00 08/31/24 09:55 Enoxaparin Sod Inj 40 Mg/0.4 Ml Syringe SC 09/11/24 09:14 40 mg QDAY RAGINI Administration Famotidine 20 mg 08/27/24 09:00 08/31/24 09:54 Famotidine Inj 10 Mg/Ml Vial 2 Ml IVP 09/16/24 08:59 20 mg QDAY RAGINI Administration Glucagon 1 mg 08/25/24 18:02 Glucagon Inj 1 Mg Vial IM Q15MIN PRN BG <70, and no IV access Cefoxitin Sodium 2 gm/ Sodium 50 mls @ 100 mls/hr 08/30/24 14:45 08/31/24 13:37 Chloride IV 09/01/24 17:59 100 mls/hr Q8HR RAGINI Administration Losartan Potassium 25 mg 08/20/24 09:00 08/31/24 09:54 Losartan Potassium 25 Mg Tablet PO 09/19/24 08:59 25 mg QDAY RAGINI Administration Metronidazole 500 mg 08/30/24 15:00 08/31/24 09:54 Metronidazole 250 Mg Tablet PO 09/06/24 14:59 500 mg BID RAGINI Administration Ondansetron HCl 4 mg 08/25/24 15:01 08/26/24 05:25 Ondansetron Inj 2 Mg/Ml Inj 2 Ml IV 09/24/24 15:00 4 mg Q6HR PRN Administration NAUSEA OR VOMITING Protocol Zinc Sulfate 220 mg 08/26/24 09:00 08/31/24 09:55 Zinc Sulfate 220 Mg Capsule PO 09/25/24 08:59 220 mg QDAY RAGINI Administration Plan This patient is an 84-year-old male with past medical history significant for essential hypertension, hyperlipidemia, chronic stroke, history of prostate cancer s/p radiation September 2012 in remission and sigmoid colon mass for investigation presenting today with a chief complaint of left face tingling and left arm tingling and found to have acute right parietal stroke. Patient also had abdominal pain and had CT imaging done which showed a mass. Colonoscopy was done with biopsy with showed obstructive invasive adenocarinoma, so patient had sigmoid colectomy on 08/25/2024. #Sigmoid colon invasive adenocarcinoma s/p sigmoid colectomy 08/25/2024 #GI bleed, resolved. PaAbdomen/pelvis CT last year April which showed a sigmoid mass suspicious for neoplasm and colonoscopy on 08/19/2024 showed an partially obstructing mass. 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 Aspirin, plavix held due to GIB. - GI, Dr. Orozco following. - General surgery, Dr. Jade following: advance diet, ok to restart plavix - Continue metronidazole, cefoxitin #Acute R parietal lobe infarct #History of right parietal infarct 05/12/2024 Patient presented with left facial numbness and left arm tingling, slurred speech. Initial NIHHS score 2. Previous echo on file showed negative PFO and ASD (05/12/2024). This is patient's third stroke. No neuro deficits noted. Head CT negative for acute hemorrhage, mass effect or midline shift. Head/neck CTA negative for significant neck arterial stenosis and cerebral large vessel arterial occlusions. MRI brain 10 mm acute infarct right parietal lobe - Restart plavix, aspirin to consider restarting later - Dr Diop consulted #Essential hypertension #Hyperlipidemia ? Atorvastatin 40 Mg p.o. HS - Losartan 25 mg QDay - Coreg 6.25 mg PO - Holding amlodipine 10 mg HS as blood pressure has been stable, consider D/C upon discharge #History of prostate cancer s/p radiation September 2012 in remission #Elevated PSA 7.21 - Outpatient follow up #MANDO, pre-renal, resolved. Health maintenance: Disposition: Patient underwent sigmoid colectomy with low pelvic anastomosis. Postop pain management and advancing diet. Diet: Dysphagia Lines: pIVs, tele box GI Prophylaxis: Famotidine 20 mg Thrombo Prophylaxis: Lovenox Code status: FULL CODE I have reviewed and discussed the patient's care with my attending, Dr. Kailash Vizcaino MD PGY-3
--- NOTE | 2024-08-31 14:49 | PC.PT ---
PT alexi received today. Confirmed with nursing staff today 08/31/24, that patient is I with ambulation. No further PT needed at this time.
--- NOTE | 2024-08-31 16:41 | PD.IMPROG ---
Documentation for date of: 08/31/24 Subjective Subjective Interval history: Patient evaluated Tolerating soft diet Having bowel movements No nausea vomiting Exam Vital Signs Temp Pulse Resp BP Pulse Ox O2 Del Method O2 Flow Rate 97.1 F 66 17 130/59 L 98 Nasal Cannula 2 08/31/24 16:00 08/31/24 16:00 08/31/24 16:00 08/31/24 16:00 08/31/24 16:00 08/31/24 16:00 08/31/24 16:00 Objective Labs 08/31/24 05:19 08/31/24 05:19 Labs: Laboratory Results - last 24 hr 08/31/24 05:19 WBC 11.0 H RBC 3.71 L Hgb 11.0 L Hct 33.3 L MCV 90 MCH 29.6 MCHC 33.0 RDW Std Deviation 44.9 H Plt Count 150 D Neut % (Auto) 79 Lymph % (Auto) 11 [place] % (Auto) 8 Eos % (Auto) 1 Baso % (Auto) 0 Neut # (Auto) 8.7 H Lymph # (Auto) 1.3 [place] # (Auto) 0.9 H Eos # (Auto) 0.2 Baso # (Auto) 0.0 Immature Gran # (Auto) 0.06 H Absolute Nucleated RBC 0.00 Immature Gran % 1 H Nucleated RBC % 0 Sodium 134 L Potassium 4.2 D Chloride 101 Carbon Dioxide 25.7 Anion Gap 7 BUN 10 Creatinine 0.7 Estim Creat Clear Calc 88.3 eGFR > 60 BUN/Creatinine Ratio 14 Glucose 111 H Calculated Osmolality 268 L Calcium 8.6 Corrected Calcium 9.1 Phosphorus 2.2 L Magnesium 2.1 Total Bilirubin 0.4 AST 11 ALT 9 L Alkaline Phosphatase 70 Total Protein 5.9 Albumin 3.4 Globulin 2.5 Albumin/Globulin Ratio 1.4 Impressions Impression: # Doing well postoperatively after sigmoid colectomy and primary anastomosis Okay to discharge patient home from a GI viewpoint Assessment & Plan A&P Narrative # Sigmoid colon mass Case discussed with internal medicine team Clear liquid diet GoLytely prep Colonoscopy tentatively scheduled for tomorrow morning if the patient is clear CEA level Other medical problems include # 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
[2024-08-31] MEDS: ATORVASTATIN CALCIUM 20 MG TABLET 40 MG PO (21:33)
--- NOTE | 2024-08-31 23:58 | VVPN_ITS ---
Telemedicine visit statement This visit was conducted with the use of interactive audio and video telecommunications system that permits real time communication between the patient and the provider. Patient's verbal consent for virtual visit was obtained on 08/31/24 at 2358. Documentation for date of: 08/31/24 Subjective Subjective Interval history: Patient is in medtelemetry. His left facial droop and left UE weakness are resolving, able to ambulate without any assistance. No new symptoms reported. Tolerating oral diet well. Slept well overnight.No more bleeding [place]. Virtual exam Vital Signs Temp Pulse Resp BP Pulse Ox O2 Del Method O2 Flow Rate 97.0 F 64 18 128/60 98 Nasal Cannula 1 08/31/24 20:00 08/31/24 21:29 08/31/24 21:29 08/31/24 20:00 08/31/24 21:29 08/31/24 20:00 08/31/24 21:29 Objective Labs 09/01/24 04:58 09/01/24 04:58 Labs: Laboratory Results - last 24 hr 08/31/24 05:19 WBC 11.0 H RBC 3.71 L Hgb 11.0 L Hct 33.3 L MCV 90 MCH 29.6 MCHC 33.0 RDW Std Deviation 44.9 H Plt Count 150 D Neut % (Auto) 79 Lymph % (Auto) 11 [place] % (Auto) 8 Eos % (Auto) 1 Baso % (Auto) 0 Neut # (Auto) 8.7 H Lymph # (Auto) 1.3 [place] # (Auto) 0.9 H Eos # (Auto) 0.2 Baso # (Auto) 0.0 Immature Gran # (Auto) 0.06 H Absolute Nucleated RBC 0.00 Immature Gran % 1 H Nucleated RBC % 0 Sodium 134 L Potassium 4.2 D Chloride 101 Carbon Dioxide 25.7 Anion Gap 7 BUN 10 Creatinine 0.7 Estim Creat Clear Calc 88.3 eGFR > 60 BUN/Creatinine Ratio 14 Glucose 111 H Calculated Osmolality 268 L Calcium 8.6 Corrected Calcium 9.1 Phosphorus 2.2 L Magnesium 2.1 Total Bilirubin 0.4 AST 11 ALT 9 L Alkaline Phosphatase 70 Total Protein 5.9 Albumin 3.4 Globulin 2.5 Albumin/Globulin Ratio 1.4 Assessment & Plan Assessment (1) Acute CVA (cerebrovascular accident): mri Brain showed acute infarct in the right parietal area. improving in deficit: left facial and UE weakness Continue with BP control and statin ok to resume plavix as cleared by GI, stable for d/c home and fu in 2 weeks. (2) Essential (primary) hypertension: continue Losartan and Carvedilol (3) Hyperlipidemia: continue with statin (4) Malignant neoplasm of sigmoid colon: colonoscopy : showed hemorrhoids, divericulitis and malignant sigmoid colon s/p sigmoid colectomy. path confirmed adenoca
[2024-09-01] VITALS: BP 147/91; PULSE 63; RESP 18; TEMP 36.1; O2SAT 97
[2024-09-01 04:00] VITALS: BP 147/91; PULSE 63; RESP 18; TEMP 36.1; O2SAT 97
[2024-09-01] MEDS: CEFOXITIN 2 GM in SODIUM CHLORIDE 0.9% 50 ML IV (05:06)
[2024-09-01 05:44] LABS: Basophils % (Auto) 0 % (0-2.5); Eosinophils # (Auto) 0.1 Thou/mm3 (0.0-0.5); Eosinophils % (Auto) 2 % (0-10); Hematocrit 32.6 % (41.0-53.0); Hemoglobin 10.9 g/dL (13.5-16.0); Immature Granulocytes % (Auto) 1 % (0-0); Immature Granulocytes Auto 0.06 Thou/mm3 (0.00-0.00); Lymphocytes # (Auto) 1.2 Thou/mm3 (1.0-4.8); Lymphocytes % (Auto) 13 % (10-50); Mean Corpuscular HGB Conc 33.4 g/dl (31.0-37.0); Mean Corpuscular Hemoglobin 29.9 pg (25.0-35.0); Mean Corpuscular Volume 89 fL (80-100); Monocytes # (Auto) 0.8 Thou/mm3 (0.0-0.8); Monocytes % (Auto) 9 % (0-12); Neutrophils # (Auto) 6.8 Thou/mm3 (1.8-7.7); Neutrophils % (Auto) 75 % (37-80); Nucleated Red Blood Cell % 0 /100 WBC (0); Platelet Count 199 Thou/mm3 (140-440); Red Blood Count 3.65 Miln/mm3 (4.50-5.90)
[2024-09-01 06:09] LABS: Alanine Aminotransferase 11 U/L (10-49); Albumin, Serum 3.4 gm/dL (3.4-4.8); Albumin/Globulin Ratio 1.3 (1.2-2.2); Alkaline Phosphatase 71 U/L (46-116); Anion Gap 7 (7-16); Aspartate Amino Transferase < 10 U/L (0-34); BUN/Creatinine Ratio 15 Ratio (12-20); Bilirubin,Total 0.4 mg/dL (0.3-1.2); Blood Urea Nitrogen 9 mg/dL (9-23); Calcium 8.2 mg/dL (8.3-10.6); Calcium (Corrected) 8.7 mg/dL (8.5-10.1); Carbon Dioxide 26.1 mMol/L (20.0-31.0); Chloride 101 mMol/L (98-107); Creatinine (Component) 0.6 mg/dL (0.6-1.3); Estimated Creatinine Clearance 102.7 mL/min (>60); Globulin 2.6 gm/dL (2.3-3.5); Glucose 114 mg/dL (74-106); Osmolality,Calculated 267 (275-295); Phosphorous 2.4 mg/dL (2.4-5.1); Sodium 134 mMol/L (136-145); eGFR > 60 See Note
[2024-09-01 06:52] VITALS: PULSE 76; RESP 20; O2SAT 99
[2024-09-01 08:00] VITALS: BP 136/64; PULSE 68; RESP 17; TEMP 36.1; O2SAT 97
[2024-09-01] MEDS: ENOXAPARIN SOD INJ 40 MG/0.4 ML SYRINGE SC (08:44)
[2024-09-01 08:45] VITALS: BP 136/64; PULSE 68
[2024-09-01] MEDS: LOSARTAN POTASSIUM 25 MG TABLET PO (08:45)
[2024-09-01] MEDS: DOCUSATE SOD 100 MG CAPSULE PO (08:45)
[2024-09-01] MEDS: carVEDILOL 3.125 MG TABLET 6.25 MG PO (08:45)
[2024-09-01] MEDS: metroNIDAZOLE 250 MG TABLET 500 MG PO (08:45)
[2024-09-01] MEDS: ASCORBIC ACID 250 MG TABLET 500 MG PO (08:45)
[2024-09-01] MEDS: ZINC SULFATE 220 MG CAPSULE PO (08:45)
[2024-09-01] MEDS: FAMOTIDINE INJ 10 MG/ML VIAL 2 ML 20 MG IVP (08:46)
[2024-09-01] MEDS: CLOPIDOGREL BISULFATE 75 MG TABLET PO (08:46)
[2024-09-01 12:00] VITALS: BP 144/55; PULSE 73; RESP 16; TEMP 36.4; O2SAT 95
--- NOTE | 2024-09-01 13:27 | ESDS_ITS ---
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 SERVICE ENGINEER Director Of Safety] Routine Comment: 08/16/24 23:21 Referral Physical Therapy Routine Comment: Physician Instructions: Instructions: stroke rule out 08/19/24 21:34 Consult to General Surgery Routine Comment: Consulting Provider: Umu Jade Attending Provider on DC: Jostin Linder MD Discharging Provider: Jostin Linder MD DS: Diagnosis Problem List Completed Was Problem List Reviewed/Reconciled?: Yes Hospital Course Hospital Course Hospital course: 84-year-old male with past medical history significant for essential hypertension,CVA, hyperlipidemia, chronic stroke, history of prostate cancer s/p radiation September 2012 in remission and sigmoid colon mass was admitted on 08/16/2024 due to strokelike symptoms. In the ED patient came in with complaints of left-sided arm numbness, slurred speech, and left facial numbness. Initially patient with hypertensive and afebrile. Initial labs were unremarkable. Initial imaging included head CT which was unremarkable, head and neck CTA which was unremarkable, and brain MRI which showed a 10 mm acute right parietal lobe infarct. Neurology was consulted during this time given patient's strokelike symptoms, but the symptoms resolved significantly throughout the hospital stay. Patient had a history of sigmoid colon mass which have not been evaluated given that he had some insurance issues in the outpatient setting therefore GI specialist was consulted and did colonoscopy on the patient which showed ulcerated partially obstructing large mass in the sigmoid colon. General surgeon was consulted given the colonoscopy findings. Patient underwent exploratory laparotomy with sigmoid colectomy with low pelvic anastomosis on 08/25/2024. Throughout the patient's hospital stay he continued to improve and he had a bowel movement on postop day 2 and his diet was advanced slightly as he was able to tolerate. Patient's deficits also significantly improved throughout his hospital stay and he was given antibiotics throughout the hospital stay. Prior to discharge general surgeon stated was okay to start patient back on Plavix and then from surgical standpoint he was good to be discharged. Neuro logy is also stated patient was able to be discharged from neurology standpoint. At the time of discharge patient was stable enough to be discharged home with home health. Discharge plan: Please follow-up with primary care physician in 1 week after discharge Please follow-up with your surgeon Dr. Jade in 1 to 2 weeks after discharge Please follow-up with neurologist Dr Diop in 1 to 2 weeks after discharge Please continue metronidazole 500 mg twice daily for 5 more days. 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 #Acute R parietal lobe infarct #History of right parietal infarct 05/12/2024 #Essential hypertension #Hyperlipidemia #History of prostate cancer s/p radiation September 2012 in remission #Elevated PSA 7.21 #MANDO, pre-renal, resolved Case disclosed with Attending Dr. Kailash Mendoza PGY1 Status at Discharge Overall status at discharge: patient is progressing back to baseline Time Spent with Patient Time attestation: Total time spent providing and/or coordinating discharge services: >35 min Home Health Home Health Referral Orders: 09/01/24 13:05 Home Health Referral Routine Reason For Exam: Wound care Home-Bound The patient must either because of illness or injury, need the aid of supportive devices such as crutches, canes, wheelchairs, and walkers; the use of special transportation; or the assistance of another person in order to leave their place of residence; OR have a condition such that leaving his or her home is medically contraindicated. In addition, the patient also meets the following criteria: patient is normally unable to leave the home and leaving home requires considerable taxing effort. Addendum to Home Health Certification Practitioner's Certification: I certify that the patient has been under my care in the hospital and the care of attending physician (see below). We had a [id number] encounter on (see date below). My clinical findings indicate that the patient is home bound per the above criteria and the Home Health Services noted in these orders are medically necessary. The primary reason for the yhee-ry-wvof encounter is related to the fact that the patient requires home health services. Date Certifying [id number]-Qczr Physician Encounter: 08/16/24 Physician's Name who will Assume Oversight for Services: Jamir Griffin Physician's Phone No.who will Assume Oversight for Service: CANCER PROGRAM COORDINATOR - Community Resources: No PT to Evaluate: No PT to evaluate and provide a treatmnet plan to increase patient's mobility and strength. Wound Care: Yes Home Health RN - Wound Care Order: per wound nurse IV Therapy: No RN Safety Evaluation: Yes RN to evaluate and create a plan of care that will produce positive outcomes. Palliative Treatment: No Palliative treatment and evaluate the need for hospice. Home Health Aide - Personal Care: No Home Health Aide to assist with any ADL's. Exam Vital Signs Temp Pulse Resp BP Pulse Ox O2 Del Method O2 Flow Rate 97.6 F 73 16 144/55 H 95 Nasal Cannula 1 09/01/24 12:09/01/24 12:09/01/24 12:09/01/24 12:09/01/24 12:09/01/24 12:09/01/24 12:00 Narrative Exam General: A/O x3, no acute distress Eyes: PERRL, EOMI. Anicteric, vision grossly intact. Ears: No ear pain, no ear discharge, Hearing grossly intact. Nose: No nasal discharge. Mouth/Throat: Moist mucous membranes, no redness, no lesions. Neck: Neck supple, non-tender, no cervical lymphadenopathy. Lungs: Clear ANKIT to auscultation and percussion, No accessory muscle use. Cardio: Normal S1/S2, regular rhythm, no murmurs, no JVD or carotid bruits. Abdomen: Soft, non-tender, no palpable masses, peristalsis present, no guarding or rebound. Clean incision site with good granulation tissue and non-tender Extremities: Symmetrical, no significant deformities, no peripheral edema , non-tender, peripheral pulses presents. Skin: No rashes, no lesions, warm to touch. Neuro: No focal neurological deficits. motor and sensory intact Psych: Cooperative, appropriate mood and effect. Discharge Plan Plan Patient Disposition: Home w/HOME HEALTH Patient condition on transfer: Stable and Benefits outweigh risks Care Plan Goals: Please follow-up with primary care physician in 1 week after discharge Please follow-up with your surgeon Dr. Jade in 1 to 2 weeks after discharge Please follow-up with neurologist Dr Diop in 1 to 2 weeks after discharge Please continue metronidazole 500 mg twice daily for 5 more days. You amlodipine 10 mg have been stopped Your losartan has been changed to 25 mg daily You have been started on aspirin 81 mg daily Please continue taking all home medications as prescribed Please come back to the ER if symptoms persist or worsen Prescriptions/Referrals Prescriptions/Med Rec: New aspirin [Ecotrin Low Strength] 81 mg Tablet,Delayed Release (Dr/Ec) 81 mg PO QDAY 21 Days Qty: 21 0RF ascorbic acid (vitamin C) 500 mg capsule 500 mg PO BID 30 Days Qty: 60 0RF zinc sulfate 50 mg zinc (220 mg) Capsule 220 mg PO QDAY Qty: 30 0RF metronidazole 500 mg tablet 500 mg PO BID 5 Days Qty: 10 0RF Continued carvedilol [Coreg] 6.25 MG tablet 6.25 mg PO BID Qty: 0 famotidine 20 mg Tablet 20 mg PO BID PRN (Reason: Heartburn) clopidogrel 75 mg tablet 75 mg PO QDAY 30 Days Qty: 30 2RF atorvastatin 80 mg tablet 80 mg PO QPM Qty: 30 2RF Changed losartan 25 mg tablet 25 mg PO DAILY 30 Days Qty: 30 0RF Discontinued amlodipine 10 mg Tablet 10 mg PO QDAY Referrals: Jamir Griffin MD [Primary Care Provider] - Patient/Caregiver Discharge Instructions Other Discharge Activity Instructions:: Please follow-up with primary care ph ysician in 1 week after discharge Please follow-up with your surgeon Dr. Jade in 1 to 2 weeks after discharge Please follow-up with neurologist Dr Diop in 1 to 2 weeks after discharge Please continue metronidazole 500 mg twice daily for 5 more days. You amlodipine 10 mg have been stopped Your losartan has been changed to 25 mg daily You have been started on aspirin 81 mg daily Please continue taking all home medications as prescribed Please come back to the ER if symptoms persist or worsen Education Materials: Symptoms of Stroke, Stroke: Taking Medicines, Stroke: Self-Care, Preventing Surgical Site Infections Print Language: [place] Stand Alone Forms: Thao Mancini Info., Patient Portal Info Letter Discharge Order Discharge Orders: Discharge (Routine); Ordered 09/01/24 Ordered By: Regulo Mendoza Quality Discharge Quality Measures VTE prophylaxis
--- NOTE | 2024-09-01 23:32 | VVPN_ITS ---
Telemedicine visit statement This visit was conducted with the use of interactive audio and video telecommunications system that permits real time communication between the patient and the provider. Patient's verbal consent for virtual visit was obtained on 09/01/24 . Documentation for date of: 09/01/24 Subjective Subjective Interval history: Patient is in medtelemetry. His left facial droop and left UE weakness are resolving, able to ambulate without any assistance. No new symptoms reported. Tolerating oral diet well. Slept well overnight.No more bleeding [place]. Virtual exam Vital Signs Temp Pulse Resp BP Pulse Ox O2 Del Method O2 Flow Rate 97.6 F 73 16 144/55 H 95 Nasal Cannula 1 09/01/24 12:00 09/01/24 12:00 09/01/24 12:00 09/01/24 12:00 09/01/24 12:00 09/01/24 12:00 09/01/24 12:00 Objective Labs 09/01/24 04:58 09/01/24 04:58 Labs: Laboratory Results - last 24 hr 09/01/24 04:58 WBC 9.0 RBC 3.65 L Hgb 10.9 L Hct 32.6 L MCV 89 MCH 29.9 MCHC 33.4 RDW Std Deviation 45.0 H Plt Count 199 D Neut % (Auto) 75 Lymph % (Auto) 13 [place] % (Auto) 9 Eos % (Auto) 2 Baso % (Auto) 0 Neut # (Auto) 6.8 Lymph # (Auto) 1.2 [place] # (Auto) 0.8 Eos # (Auto) 0.1 Baso # (Auto) 0.0 Immature Gran # (Auto) 0.06 H Absolute Nucleated RBC 0.00 Immature Gran % 1 H Nucleated RBC % 0 Sodium 134 L Potassium 4.0 Chloride 101 Carbon Dioxide 26.1 Anion Gap 7 BUN 9 Creatinine 0.6 Estim Creat Clear Calc 102.7 eGFR > 60 BUN/Creatinine Ratio 15 Glucose 114 H Calculated Osmolality 267 L Calcium 8.2 L Corrected Calcium 8.7 Phosphorus 2.4 Magnesium 2.0 Total Bilirubin 0.4 AST < 10 ALT 11 Alkaline Phosphatase 71 Total Protein 6.0 Albumin 3.4 Globulin 2.6 Albumin/Globulin Ratio 1.3 Assessment & Plan Assessment (1) Acute CVA (cerebrovascular accident): mri Brain showed acute infarct in the right parietal area. improving in deficit: left facial and UE weakness Continue with BP control and statin ok to resume plavix as cleared by GI, stable for d/c home and fu in 2 weeks. (2) Essential (primary) hypertension: continue Losartan and Carvedilol (3) Hyperlipidemia: continue with statin (4) Malignant neoplasm of sigmoid colon: colonoscopy : showed hemorrhoids, divericulitis and malignant sigmoid colon s/p sigmoid colectomy. path confirmed adenoca
--- NOTE | 2024-09-02 08:53 | PC.CC ---
Addendum entered by Alejo Simpson RN 09/02/24 15:32: Pending insurance auth and start of care date from [facility]. Addendum entered by Viji Olivarez RN 09/02/24 09:11: Pt booked with [facility], pending SOC Original Note: Pt entered into [facility], referrals sent to all agencies no preference specified
== END 2024-09-01 15:05 | disposition home health service (06) | DRG 329 ==
LOC: SERX 23:23 → SERHOLD 23:28 → S2NX 08-17 02:43 → S3SX 08-20 18:29
PROVIDERS: Nurse Practitioner Family; Specialist; Student in an Organized Health Care Education/Training Program; Surgery; Admitting Provider Internal Medicine; Emergency Provider Emergency Medicine; PCP Internal Medicine; Visit Provider Psychiatry & Neurology Neurology
PROC: 0DJD8ZZ Inspection of Lower Intestinal Tract, Via Natural or Artificial Opening Endoscopic (ICD-10-PCS; CPT 45378; principal; 2024-08-19 13:00)
PROC: 0DTN0ZZ Resection of Sigmoid Colon, Open Approach (ICD-10-PCS; CPT 49000; principal; 2024-08-25 11:30)
DX: C18.7 Malignant neoplasm of sigmoid colon (principal); I63.9 Cerebral infarction, unspecified; K92.2 Gastrointestinal hemorrhage, unspecified; N17.9 Acute kidney failure, unspecified; G81.90 Hemiplegia, unspecified affecting unspecified side; K63.0 Abscess of intestine; R29.702 NIHSS score 2; I10 Essential (primary) hypertension; E78.5 Hyperlipidemia, unspecified; R47.81 Slurred speech; R06.02 Shortness of breath; N40.0 Benign prostatic hyperplasia without lower urinary tract symptoms; R00.1 Bradycardia, unspecified; T46.1X5A Adverse effect of calcium-channel blockers, initial encounter; K64.9 Unspecified hemorrhoids; Z86.73 Personal history of transient ischemic attack (TIA), and cerebral infarction without residual deficits; R29.810 Facial weakness; Z85.46 Personal history of malignant neoplasm of prostate; Z92.3 Personal history of irradiation; Z90.49 Acquired absence of other specified parts of digestive tract; Z87.891 Personal history of nicotine dependence; Z79.899 Other long term (current) drug therapy; Z79.02 Long term (current) use of antithrombotics/antiplatelets
CPT/HCPCS: 36415; 70450; 70496; 70498; 70544; 71045; 74177; 80053; 80061; 81001; 82378; 83036; 83735; 84100; 84153; 84443; 84484; 85025; 85610; 85730; 87086; 92610; 93225; 94664; 97162; 99291; A4216; A4217; A4649; J0131; J0694; J1100; J1200; J1650; J2250; J2405; J2704; J2710; J3010; J3475; J3480; J3490; J7030; J7050; J7999; P9045; Q9967; A9270; J1596

== ENCOUNTER 2024-10-01 14:32 | Outpatient (RCR) | payer MEDICARE, SELFPAY ==
--- NOTE | 2024-10-01 16:00 | CTCFLWUP_ITS ---
Lalito Slater [facility] [address] [place], [place] [address] FOLLOW-UP NOTE Date: 10/01/2024 MR#: [id number] Name: ELSA ADAMS : 1940 Dx: C61 Malignant neoplasm of prostate Identification. Patient treated for prostate cancer 7200 cGy 10/02/2012 PSA had steadily been going up 6.1 on 06/11/2024 and 7.21 on 08/20/2024. 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 Noticed to have lower GI bleeding and underwent colonoscopy performed with Dr. Orozco 08/19/2024. This revealed malignant partially obstructing tumor in the sigmoid colon. Also suspected to have a CVA and brain MRI 08/17/2024 revealed 10 mm acute infarct right parietal lobe. Neurologist Dr. Diop prescribed Plavix and for controlling of hypertension with antihypertensive meds. Underwent exploratory laparotomy sigmoid colectomy with low pelvic anastomosis performed 08/16/2024 revealing invasive adenocarcinoma pT3N0 12 benign lymph nodes removed. No loss of expression in all 4 mismatch repair proteins. Postop abdominal pelvis CT 08/30/2024 colonic diverticulosis small pericolonic abscess adjacent to sigmoid colon along with postop changes. No focal liver lesions. Patient has recovered satisfactorily from both his recent surgery and CVA. Able to maintain his ADLs. Assessment #1 CVA acute, right parietal lobe taking Plavix and antihypertensives. #2. pT3pN0 stage IIa sigmoid colon cancer. 12 lymph nodes removed #3. Patient does not wish to receive chemo or even a medical oncology referral. Up to date indicates very small benefit for stage II particularly when 12 lymph nodes are more sampled. 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 #5. Shall see him back in 6 months. Cc: Umu Jade MD Electronically signed by: Toney Woodson M.D. 10/01/2024 3:58 PM
== END 2024-10-28 23:59 | disposition home or self-care (01) ==
LOC: SCTC 14:32
PROVIDERS: PCP Family Medicine; Referring Provider Family Medicine; Visit Provider Radiology Therapeutic Radiology
DX: C18.7 Malignant neoplasm of sigmoid colon (principal); C61 Malignant neoplasm of prostate; D11.0 Benign neoplasm of parotid gland; I10 Essential (primary) hypertension; Z86.73 Personal history of transient ischemic attack (TIA), and cerebral infarction without residual deficits; Z79.02 Long term (current) use of antithrombotics/antiplatelets
CPT/HCPCS: 99213; G0463

== ENCOUNTER 2025-04-29 11:19 | Outpatient (RCR) | payer MEDICARE, SELFPAY ==
--- NOTE | 2025-04-29 12:09 | CTCFLWUP_ITS ---
[facility] [address] [place], [place] [address] FOLLOW-UP NOTE Date: 04/29/2025 MR#: [id number] Name: ELSA ADAMS : 1940 Dx: C61 Malignant neoplasm of prostate Identification. Patient was treated for prostate cancer with radiation therapy 7 200 cGy completed 10/02/2012. Patient has come back in frequently and was noted to slowly rising PSA and 7.21 on 08/20/2024. 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 Underwent sigmoid colectomy with low pelvic anastomosis performed 08/16/2024 revealing invasive adenocarcinoma pT3pN0 12 benign lymph nodes removed no loss of expression in all 4 mismatch repair proteins. As I see him today with his granddaughter he states that he is fine and does not believe that he has cancer. Declined any blood tests or x-rays or referral to any specialists. States that he will make an appointment if he has any symptoms of pain bleeding etc. Told patient that he could see me as needed in the future. Electronically signed by: Toney Woodson M.D. 04/29/2025 12:07 PM
== END 2025-04-29 23:59 | disposition home or self-care (01) ==
LOC: SCTC 11:19
PROVIDERS: PCP Internal Medicine; Referring Provider Family Medicine; Visit Provider Radiology Therapeutic Radiology
DX: Z08 Encounter for follow-up examination after completed treatment for malignant neoplasm (principal); Z85.46 Personal history of malignant neoplasm of prostate; Z92.3 Personal history of irradiation
CPT/HCPCS: 99212; G0463